=== PATIENT | female | born 2000 | race Caucasian/White ===

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

== ENCOUNTER 2018-03-02 00:58 | Emergency (ER) | payer OTHER ==
[~2018-03-02] VITALS: Ht 167.6 cm; Wt 59.0 kg
--- OUTSIDE RECORDS SUMMARY | ~2018-03-02 | XMS | Encounter Summary ---
Demographics + + + | Address | [address] | | | [place] [address] | + + + | Home Phone | | + + + | Preferred Language | Unknown | + + + | Marital Status | Single | + + + | Baptism Affiliation | 1025 | + + + [...] Mark Chatterjee | ECON | [place] [address] | | | | | Unknown | | + + + + + | Jean Claude Chatterjee | ECON | Unknown | | + + + + + Care Team Providers + +------+ + | Care Camp Recreation Specialist Name | Role | Phone | + +------+ + | Jane Mercado | PCP | | + +------+ + [...] ideation | | 2018 | Visit | [facility] | G, SITE RELIABILITY ENGINEER [address] | (Primary Dx); | | | | MEDICAL [facility] [address] | [place], [place] | Depression, | | | [address] [place], | [address] | unspecified | | | | [place] [address] | [phone] | depression type; | | | | [phone] | | Anxiety | +--------+---------+ + + [...] + | Blood Pressure | 102/58 | 12/05/2017836 PDT | + + + + | Pulse | 83 | 12/05/2017836 PDT | + + + + | Temperature | - | - | + + + + | Respiratory Rate | 16 | 12/05/2017836 PDT | + + + + | Oxygen Saturation | 97% | 12/05/2017836 PDT | + + + + | Inhaled Oxygen | - | - | | Concentration | | | + + + + | Weight | 60.4 kg (133 lb 3.2 | 12/05/2017836 PDT | | | oz) | | + + + + | Height | 166.4 cm (5' 5.5") | 12/05/2017 0837 PDT | + + + + | Body Mass Index | 21.83 | 12/05/2017 0837 PDT | + + + + in this encounter Progress Notes Jane Mercado ARNP - 12/05/2017 0830 PDTFormatting of this note may be different aga m the original. Patient ID: Kristyn Longoria is a 17 y.o. year old female Chief Complaint: Chief Complaint Patient presents with Anxiety Assessment and Plan: 1. Suicidal ideation 2. Depression, unspecified depression type 3. Anxiety Called crisis team from [facility] due to patient expressing intermittent thoughts of suicide. Jun Toussaint LCSW/crisis counselor came to the clinic and met with the patient in my office. Patient has appointment to establish with [facility] in [place], [place] next Friday. I reagan d [facility] and was told patient could make an appointment or walk in to be cami luated for marijuana use/dependence. Patient was notified about this. Subjective: Patient presents today to establish care. Was previously seen at [facility] in [place], [place]. Last seen 11/19/17 for ER follow-up for suicidal ideation and start ed on Vistaril 25 mg tid prn and referred to behavioral health. She reports that she was ref erred to a counselor at [facility] in [place]. She has not been to [facility] yet as she is waiting for her boyfriend to get back in town to go with her. Her boyfriend will be back in town next week. States she has an appointment with [facility] on 12/10/17. 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 She is requesting a referral to psychiatric [...] cutting at age 11. Previously seen at [facility]. 1. Depression and anxiety - states [...] from cutting Psychiatric: Flat affect. KAMILAH Melvin12/05/20179:41 in this encounter Plan of Treatment +--------+ + + + + | Date | Type | Specialty | Care Team | Description | +--------+ + + + + | 08/30/ | Hospital | Obstetrics | Caty Schuster | | | 2018 | Encounter | | DO [address] | | | | | | [address] | | | | | | [place], [place] | | | | | | [address] | | | | | | [phone] | | | | | | | | +--------+ + + + + as of this encounter Visit Diagnoses + + | Diagnosis | + + | Suicidal ideation - Primary | + + | Depression, unspecified depression type | + + | Anxiety | + + | Anxiety state, unspecified | + +
--- OUTSIDE RECORDS SUMMARY | ~2018-03-02 | XMS | Encounter Summary ---
Demographics + + + | Address | [address] | | | [place] [address] | + + + | Home Phone | | + + + | Preferred Language | Unknown | + + + | Marital Status | Single | + + + | Lutheran Affiliation | 1025 | + + + | Race | Unknown | + + + | Ethnic Group | Unknown | + + + Author + + + | Author | [facility] | | | and [place] | + + + | Organization | [facility] | | | and [place] | + + + | Address | Unknown | + + + | Phone | Unavailable | + + + Support + + + + + | Name | Relationship | Address | Phone | + + + + + | Mark Chatterjee | ECON | [place] [address] | | | | | Unknown | | + + + + + | Jean Claude Chatterjee | ECON | Unknown | | + + + + + Care Team Providers + +------+ + | Care Director Of Teacher Education Name | Role | Phone | + [...] | | | DR TIANNA GARCIA, | [facility] [place] | | | | | [place] [address] | [address] | | | | | [phone] | [phone] | | | | | | | [...] water with a slice of lemon or [place]. (These can also help ease an upset [...] salmon, pollock, and catfish Date Last Reviewed: 01/29/201519990715-5983 [employer]. [address] [place] [address]. All righ ts reserved. This information is [...] to increase its absorption. Date Last Reviewed: 01/22/201519996948-4595 [employer]. [address] [place] [address]. All righ ts reserved. This information is [...] had an IOB with a provider in [place]. 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 She has family here that she could stay with. I am ok with seeing her occasionally during the , but we do need to make sure that she does not have duplicate care such as labs. S he states she had some labs done already in [place] and so we will get those results. [...] Anes PTL Lv 2 Current 1 SAB Radiology Specialist history: Menstrual history: Patient's last menstrual [...] negative Breast: negative Gastrointestinal: negative -Urinary: negative -Radiology Specialist: none. Endocrinology: negative Neurologic: negative Musculoskeletal: [...] with positive cardiac activity at 180 bpm. [place]-rump length of 2.57 cm was consistent w [...] age She has been seeing provider in [place] and not sure where she will deliver. I am ok wit h seeing her occasionally, but will need to make sure that information is passed between the two clinics because we do not want to duplicate orders. 2. Normal in multigravida in first trimester 3. 12 weeks gestation of Plan: labs apparently had done in [place]. Will have her sign a ROR for those results . Patient is taking vitamins. Problem list reviewed and updated. Discussed options for genetic testing. Patient was undecided Discussed using Vit B6 25 mg or more four times a day with or without 1/2 a unisom tablet. Follow up in 3 weeks. States she has a follow up in [place] in 2 weeks. If she does, she [...] [place] | | | | | | [address] | | | | | | [phone] | | | | | | | [...]
--- OUTSIDE RECORDS SUMMARY | ~2018-03-02 | XMS | Encounter Summary ---
Demographics + + + | Address | [address] | | | [place] [address] | + + + | Home Phone | | + + + | Preferred Language | Unknown | + + + | Marital Status | Single | + + + | Mormonism Affiliation | 1025 | + + + [...] Mark Chatterjee | ECON | [place] [address] | | | | | Unknown | | + + + + + | Jean Claude Chatterjee | ECON | Unknown | | + + + + + Care Team Providers + +------+ + | Care Bin Packer Name | Role | Phone | + [...] (PT IN | | 2017 | | [facility] | G, QUALITY ASSURANCE MONITOR BODY [address] | [place] NEW | | | | MEDICAL CLIN[facility] [address] | [place], [place] | PCP ) | | | | [address] [place], | [address] | | | | | [place] [address] | [phone] | | | | | [phone] | | | +--------+ + + + [...] [place] | | | | | | [address] | | | | | | [phone] | | | | | | | | +--------+ + + + + as of this encounter Visit Diagnoses Not on filein this encounter"
--- OUTSIDE RECORDS SUMMARY | ~2018-03-02 | XMS | Clinical Summary ---
Demographics + + + | Address | [address] | | | [place] [address] | + + + | Home Phone | | + + + | Preferred Language | Unknown | + + + | Marital Status | Single | + + + | Mu-Ism Affiliation | 1025 | + + + [...] Mark Chatterjee | ECON | [place] [address] | | | | | Unknown | | + + + + + | Jean Claude Chatterjee | ECON | Unknown | | + + + + + Care Team Providers + +------+ + | Care Jewelry Estimator Name | Role | Phone | + [...] ) | +--------+ + + + + | 12/05/ | Office | | Jane Mercado | Suicidal ideation | | 2017 | Visit | | FAY Baig | (Primary Dx); | | | | | | Depression, | | | | | | unspecified | | | | | | depression type; | | | | | | Anxiety | +--------+ + + + + from [...] + | Blood Pressure | 115/63 | 01/27/20181403 PDT | + + + [...] Height | 166.4 cm (5' 5.5") | 01/27/20181403 PDT | + + + + | Body Mass Index | 21.34 | 01/27/20181403 PDT | + + + + Plan of Treatment +--------+ + + + + | Date | Type | Specialty | Care Team | Description | +--------+ + + + + | 03/17/ | Hospital | | Caty Schuster | | | 2019 | Encounter | | DO [address] | | | | | | [address] | | | | | | [place] | | | | | | [address] | | | | | | [phone] | | | | | | | [...] | [employer] | MODA | [id number] | Medica | [phone]- | | | MEDICAID HMO | HEALTH [...] Self | [birth year] | Home: | [address] | | | al/Fam | | 2000 | +- | [address] [place], | | | sary | | | [address] | [place] [address] | + +--------+ +--------+ + + | KRISTYN CAI | Third | Self | [birth year] | Home: | [address] | | | [place] | | 2000 | +- | [address] [place], | | | [place] | | | [address] | [place] [address] | | | ity | | | | | + +--------+ +--------+ + +
--- OUTSIDE RECORDS SUMMARY | ~2018-03-02 | XMS | Encounter Summary ---
Demographics + + + | Address | [address] | | | [place] [address] | + + + | Home Phone | | + + + | Preferred Language | Unknown | + + + | Marital Status | Single | + + + | Hoahaoism Affiliation | 1025 | + + + [...] Mark Chatterjee | ECON | [place] [address] | | | | | Unknown | | + + + + + | Jean Claude Chatterjee | ECON | Unknown | | + + + + + Care Team Providers + +------+ + | Care Seal Mixer Name | Role | Phone | [...] | | DR TIANNA GARCIA, | [facility], [place] | | | | | [place] [address] | [address] | | | | | [phone] | [phone] | | | | | | | [...] water with a slice of lemon or [place]. (These can also help ease an upset [...] are high in mercury, like shark, swordfish, daenne mackerel, tilefish, and alb[place] ore tuna Things to limit Askyour healthcare providerwhether it s safe to eat or drink: Caffeine Artificial sweeteners Organ meats Certain types of fish Fish and shellfish that contain mercury in lower amounts, like shrimp, canned light tuna , salmon, pollock, and catfish Date Last Reviewed: 01/29/201519991986-2859 [employer]. [address] [place] [address]. All righ ts reserved. This information is [...] to increase its absorption. Date Last Reviewed: 01/22/201519993818-3242 [employer]. [address] [place] [address]. All righ ts reserved. This information is [...] had an IOB with a provider in [place]. 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 She has family here that she could stay with. I am ok with seeing her occasionally during the , but we do need to make sure that she does not have duplicate care such as labs. S he states she had some labs done already in [place] and so we will get those results. 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 Endocrinology: negative Neurologic: negative Musculoskeletal: [...] with positive cardiac activity at 180 bpm. 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 I am ok wit h seeing her occasionally, but will need to make sure that information is passed between the two clinics because we do not want to duplicate orders. 2. Normal in multigravida in first trimester 3. 12 weeks gestation of Plan: labs apparently had done in [place]. Will have her sign a ROR for those results . Patient is taking vitamins. Problem list reviewed and updated. Discussed options for genetic testing. Patient was undecided Discussed using Vit B6 25 mg or more four times a day with or without 1/2 a unisom tablet. Follow up in 3 weeks. States she has a follow up in [place] in 2 weeks. If she does, she [...] [place] | | | | | | [address] | | | | | | [phone] | | | | | | | [...]
--- OUTSIDE RECORDS SUMMARY | ~2018-03-02 | XMS | Encounter Summary ---
Demographics + + + | Address | [address] | | | [place] [address] | + + + | Home Phone | | + + + | Preferred Language | Unknown | + + + | Marital Status | Single | + + + | Episcopalian Affiliation | 1025 | + + + | Race | Unknown | + + + | Ethnic Group | Unknown | + + + Author + + + | Author | [facility] | | | and [place] | + + + | Organization | [facility] | | | and [place] | + + + | Address | Unknown | + + + | Phone | Unavailable | + + + Support + + + + + | Name | Relationship | Address | Phone | + + + + + | Mark Chatterjee | ECON | [place] [address] | | | | | Unknown | | + + + + + | Jean Claude Chatterjee | ECON | Unknown | | + + + + + Care Team Providers + +------+ + | Care Solderer Dipper Name | Role | Phone | + [...] (PT IN | | 2017 | | [facility] | G, [place] GENERAL [address] | [place] | | | | MEDICAL CLIN[facility] [address] | [place], [place] | PCP ) | | | | [address] [place], | [address] | | | | | [place] [address] | [phone] | | | | | [phone] | | | +--------+ + + + [...] [place] | | | | | | [address] | | | | | | [phone] | | | | | | | | +--------+ + + + + as of this encounter Visit Diagnoses Not on filein this encounter"
--- OUTSIDE RECORDS SUMMARY | ~2018-03-02 | XMS | Encounter Summary ---
Demographics + + + | Address | [address] | | | [place] [address] | + + + | Home Phone | | + + + | Preferred Language | Unknown | + + + | Marital Status | Single | + + + | Jewish Affiliation | 1025 | + + + [...] Mark Chatterjee | ECON | [place] [address] | | | | | Unknown | | + + + + + | Jean Claude Chatterjee | ECON | Unknown | | + + + + + Care Team Providers + +------+ + | Care Insurance Salesman Name | Role | Phone | + [...] ideation | | 2018 | Visit | [facility] | G, MUTUAL FUNDS AGENT [address] | (Primary Dx); | | | | MEDICAL CLIN[facility] [address] | [place], [place] | Depression, | | | [address] [place], | [address] | unspecified | | | | [place] [address] | [phone] | depression type; | | | | [phone] | | Anxiety | +--------+---------+ + + [...] type 3. Anxiety Called crisis team from [facility] due to patient expressing intermittent thoughts of suicide. Jun Toussaint LCSW/crisis counselor came to the clinic and met with the patient in my office. Patient has appointment to establish with [facility] in [place], [place] next Friday. I reagan d [facility] and was told patient could make an appointment or walk in to be cami luated for marijuana use/dependence. Patient was notified about this. Subjective: Patient presents today to establish care. Was previously seen at [facility] in [place], [place]. Last seen 11/19/17 for ER follow-up for suicidal ideation and start ed on Vistaril 25 mg tid prn and referred to behavioral health. She reports that she was ref erred to a counselor at [facility] in [place], [place]. She has not been to [facility] yet as she is waiting for her boyfriend to get back in town to go with her. Her boyfriend will be back in town next week. States she has an appointment with [facility] on 12/10/17. 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 She is requesting a referral to psychiatric [...] cutting at age 11. Previously seen at [facility]. 1. Depression and anxiety - [...] [place] | | | | | | [address] | | | | | | [phone] | | | | | | | | +--------+ + + + + as of this encounter Visit Diagnoses + + | Diagnosis | + + | Suicidal ideation - Primary | + + | Depression, unspecified depression type | + + | Anxiety | + + | Anxiety state, unspecified | + +
--- OUTSIDE RECORDS SUMMARY | ~2018-03-02 | XMS | Clinical Summary ---
Demographics + + + | Address | [address] | | | [place] [address] | + + + | Home Phone | | + + + | Preferred Language | Unknown | + + + | Marital Status | Single | + + + | Moravian Affiliation | 1025 | + + + | Race | Unknown | + + + | Ethnic Group | Unknown | + + + Author + + + | Author | [facility] | | | and [place] | + + + | Organization | [facility] | | | and [place] | + + + | Address | Unknown | + + + | Phone | Unavailable | + + + Support + + + + + | Name | Relationship | Address | Phone | + + + + + | Mark Chatterjee | ECON | [place] [address] | | | | | Unknown | | + + + + + | Jean Claude Chatterjee | ECON | Unknown | | + + + + + Care Team Providers + +------+ + | Care Superintendent Factory Name | Role | Phone | + [...] [place] | | | | | | [address] | | | | | | [phone] | | | | | | | [...] | [employer] | MODA | [id number] | Medica | [phone]- | | | MEDICAID HMO | HEALTH [...] sary | | | [address] | [place] [address] | + +--------+ +--------+ + + | KRISTYN CAI | Third | Self | [birth year] | Home: | [address] | | | Republican | | 2000 | +- | [address] [place], | | | [place] | | | [address] | [place] [address] | | | ity | | | | | + +--------+ +--------+ + +
--- OUTSIDE RECORDS SUMMARY | 2018-03-02 01:02 | XMS ---
PreManage Notification: BRIGITTE IVY Security Fiscal Manager Events No recent Security Events currently on file CRITERIA MET - 6 ED Visits in 6 Months CARE PROVIDERS RAYMOND RASHEED Nurse Practitioner: 12/29/2017-Current [facility] PHONE: [phone] LAUREN DALE [facility] Current PHONE: HAYDEE TERAN Nurse Practitioner Current PHONE: [phone] HAYDEE TERAN Primary Care Current PHONE: Unknown LAUREN DALE Primary Care 11/19/2017 PHONE: Unknown DOCTOR ROCHA Primary Care Current PHONE: Unknown GAIL ZAIDIRAYA Primary Care [facility] PHONE: [phone] Cornelio has no Care Guidelines for this patient. Care History Medical/Surgical 12/29/2017 [facility] - Patient is currently established with [facility]. If patient is seen in the ED during business hours. Please contact CHWs at [facility] at Ext [phone]. Care Recommendation: This patient has had 5 or more Emergency Department visits in the last 12 months.\T\nbsp; Patient requires education on the scope and purpose of the ED as an acute care provider not a Primary Care Provider and should not be utilized for chronic conditions.\T\nbsp; If patient returns to ED please contact Community Health WorkerCorinna at [phone]. These are guidelines and the provider should exercise clinical judgment when providing care. 12/08/2017 [facility] Care Recommendation: \T\nbsp;Please refer patient to [facility] for non emergent visits and follow care. Patient is established with [facility]. This patient has had 5 or more Emergency Department visits in the last 12 months.\T\nbsp; Patient requires education on the scope and purpose of the ED as an acute care provider not a Primary Care Provider and should not be utilized for chronic conditions.\T\nbsp; If patient returns to ED please contact Community Health WorkerCorinna at [phone]. These are guidelines and the provider should exercise clinical judgment when providing care. E.D. VISIT COUNT (12 MO.) 3 [facility] 1 [facility] 1 [facility] 4 [facility] TOTAL 9 NOTE: Visits indicate total known visits. ED/UCC VISIT TRACKING (12 MO.) 03/02/2018 00:59 [place] [place] TYPE: Emergency COMPLAINT: - HEADACHE 12/31/2017 23:55 [facility] [place] TYPE: Emergency DIAGNOSES: - Threatened - VAGINAL BLEEDING 12/27/2017 17:32 [place] TYPE: Emergency COMPLAINT: - CHEST TIGHTNESS/ABD [id number] DIAGNOSES: - Nicotine dependence, unspecified, uncomplicated - Smoking (tobacco) complicating , first trimester - Other mental disorders complicating , first trimester - Anxiety disorder, unspecified 12/06/2017 16:19 [facility] [place] TYPE: Emergency COMPLAINT: - ANXIETY DIAGNOSES: - Contact with unspecified sharp object, undetermined intent, initial encounter - Personal history of self-harm - Anxiety disorder, unspecified - Laceration without foreign body of left forearm, initial encounter - Panic disorder [episodic paroxysmal anxiety] 11/18/2017 02:[address] [facility] [place] TYPE: Emergency COMPLAINT: - PANIC ATTACK DIAGNOSES: - Panic disorder [episodic paroxysmal anxiety] - Anxiety disorder, unspecified 11/07/2017 00:07 [facility] DIAGNOSES: 0. VOICES IN HEAD 06/10/2017 11:41 [facility] HECTOR Abdalla TYPE: Emergency DIAGNOSES: - Abnormal finding of blood chemistry, unspecified - Abnormal Lab 06/07/2017 21:02 [facility] [place] TYPE: Emergency DIAGNOSES: - Chlamydial infection, unspecified - Hemorrhage in early , unspecified - Vaginal Bleed - related conditions, unspecified, first trimester 06/06/2017 09:46 [facility] HECT[facility] Abdalla TYPE: Emergency DIAGNOSES: - Hemorrhage in early , unspecified - Vaginal Bleeding INPATIENT VISIT TRACKING (12 MO.) No inpatient visits to display in this time frame [id number]
[2018-03-02] MEDS ORDERED: PAIN RELIEF325 MG PO (01:10)
== END 2018-03-02 02:19 | disposition home or self-care (01) ==
LOC: ED 00:58
DX: G43.909 Migraine, unspecified, not intractable, without status migrainosus (principal)
CPT/HCPCS: 96374; 96375; 99283; J1200; J2765; J7030

== ENCOUNTER 2018-03-11 00:53 | Emergency (ER) | payer OTHER ==
[~2018-03-11] VITALS: Ht 167.6 cm; Wt 58.5 kg
--- OUTSIDE RECORDS SUMMARY | ~2018-03-11 | XMS | Clinical Summary ---
Demographics + + + | Address | [address] | | | [place] [address] | + + + | Home Phone | | + + + | Preferred Language | Unknown | + + + | Marital Status | Single | + + + | Advent Affiliation | 1025 | + + + | Race | Unknown | + + + | Ethnic Group | Unknown | + + + Author + + + | Author | [facility] | | | and [place] | + + + | Organization | [facility] | | | and [place] | + + + | Address | Unknown | + + + | Phone | Unavailable | + + + Support + + + + + | Name | Relationship | Address | Phone | + + + + + | Mark Chatterjee | ECON | [place] [address] | | | | | Unknown | | + + + + + | Jean Claude Chatterjee | ECON | Unknown | | + + + + + Care Team Providers + +------+ + | Care Learning And Development Officer Name | Role | Phone | + +------+ + | Leroy Dougherty NP | PP | | + +------+ + Allergies No Known Allergies Current Medications + + +-------+---------+------+------+-------+ | Prescription | Sig. | Disp. | Refills | Star | End | Statu | | | | | | t | Date | s | | | | | | Date | | | + + +-------+---------+------+------+-------+ | | Take 2 tablets by | | | | | Activ | | multivitamin-fish | mouth Daily. | | | | | e | | oil ([facility] ) | | | | | | | | 0.4-113.5 mg | | | | | | | | chewable gummy | | | | | | | + + +-------+---------+------+------+-------+ Active Problems + + + | Problem | Noted Date | + + + | , unspecified gestational age | 01/27/2018 | + + + | Anxiety | 03/24/2017 | + + + + + + + | Currently | Estimated Date of Delivery | Comments | + + + + | Yes | 08/30/2018 | Based on last | | | | menstrual period of | | | | 11/23/2017 (Exact | | | | Date) | + + + + Encounters +--------+ + + + + | Date | Type | Specialty | Care Team | Description | +--------+ + + + + | 01/27/ | Initial | | Caty Schuster | GA: 9w2d | | 2018 | | | DO Evelyn | | +--------+ + + + + | 01/12/ | Telephone | | Jane Mercado | Imaging Only (PT IN | | 2017 | | | FAY Baig | [place] WITH NEW | | | | | | PCP ) | +--------+ + + + + from Last 3 Months Immunizations + + + + | Name | Dates Previously Given | Next Due | + + + + | DTAP, 5 | 07/27/2003, 02/11/2001, 01/09/1999, | | | [...] + + + + | Hep B (adolescent or | 01/09/1999, 1998, 1998 | | | ped) 3 dose | | | + + + + [...] | | + + + + | POLIOVIRUS,OPV, LIVE | 01/09/1999 | | + + + + | TDAP, (ADOL/ADULT) | 08/08/2009 | | + + + + | VARICELLA, 2 DOSE | 07/03/2007, 02/12/2001 | | | (PED/ADOL/ADULT) | | | [...] + +---------+ + | Alcohol Use | Drinks/We | oz/Week | Comments | | | ek | | | + + +---------+ + | No | | | | + + +---------+ + + + + + | Currently | Estimated Date of Delivery | Comments | + + + + | Yes | 08/30/2018 | Based on last | | | | menstrual period of | | | | 11/23/2017 (Exact | | | | Date) | + + + + + + + | Sex Assigned at | Date Recorded | | | | + + + | Not on file | | + + + Last Filed Vital Signs + + + + | Vital Sign | Reading | Time Taken | + + + + | Blood Pressure | 115/63 | 01/27/2018 1404 PDT | + + + + | Pulse | 108 | 01/27/20181403 PDT | + + + + | Temperature | - | - | + + + + | Respiratory Rate | 16 | 01/27/20181403 PDT | + + + + | Oxygen Saturation | 97% | 12/05/2017836 PDT | + + + + | Inhaled Oxygen | - | - | | Concentration | | | + + + + | Weight | 59.1 kg (130 lb 3.2 | 01/27/20181403 PDT | | | oz) | | + + + + | Height | 166.4 cm (5' 5.5") | 01/27/2018 1404 PDT | + + + + | Body Mass Index | 21.34 | 01/27/2018 1404 PDT | + + + + Plan of Treatment +--------+ + + + + | Date | Type | Specialty | Care Team | Description | +--------+ + + + + | 08/30/ | Hospital | | Caty Schuster | | | 2019 | Encounter | | DO Austin Rivas | | | | | | [address] | | | | | | [place] | | | | | | [address] | | | | | | [phone] | | | | | | | | +--------+ + + + + + + + + + | Health Maintenance | Due Date | Last Done | Comments | + + + + + | PRIMARY CARE | | | | | OUTREACH-MODERATE | 9 | | | | RISK EVERY 1 YEAR | | | | + + + + + | Well Child Check | | | | | | 2 | | | + + + + + | Vaccine: Influenza | | | | | (#1) | 8 | | | + + + + + | Vaccine: | | 08/08/2009, 07/27/2003, | | | Dtap/Tdap/Td (7 - | 0 | 07/27/2003, Additional history | | | Td) | | exists | | + + + + + Procedures + +--------+ + + + | Procedure Name | Priori | Date/Time | Associated Diagnosis | Comments | | | ty | | | | + +--------+ + + + | DIAGNOSTIC REPORT - | | 01/29/2018 | | Results for this | | EXTERNAL SCAN | | 0000 PDT | | procedure are in the | | | | | | results section. | + +--------+ + + + from Last 3 Months Results DIAGNOSTIC REPORT - EXTERNAL SCAN (01/29/2018) + + + | Narrative | Performed At | + + + | Ordered by an | | | unspecified provider. | | + + + from Last 3 Months Insurance + +--------+ +--------+ +---------+ | Payer | Benefi | Subscriber | Type | Phone | Address | | | t Plan | ID | | | | | | / | | | | | | | Group | | | | | + +--------+ +--------+ +---------+ | [employer] | MODA | [id number] | Medica | [phone] | | MEDICAID HMO | HEALTH | | id | 9821 | | | | [place] | | | | | | | [place]MO [place] | | | | | + +--------+ +--------+ +---------+ + +--------+ +--------+ + + | Guarantor Name | Accoun | Relation to | Date | Phone | Billing Address | | | t Type | Patient | of | | | | | | | | | | + +--------+ +--------+ + + | KRISTYN CAI | Person | Self | [birth year] | Home: | [address] | | | al/Fam | | 2000 | [phone] | [address] [place], | | | sary | | | [address] | [place] [address] | + +--------+ +--------+ + + | KRISTYN CAI | Third | Self | [birth year] | Home: | [address] | | | Libert[address] | | 2000 | [phone] | [address] [place], | | | [place] | | | [phone] | [place] [address] | | | ity | | | | | + +--------+ +--------+ + +
--- OUTSIDE RECORDS SUMMARY | ~2018-03-11 | XMS | Encounter Summary ---
Demographics + + + | Address | [address] | | | [place] [address] | + + + | Home Phone | | + + + | Preferred Language | Unknown | + + + | Marital Status | Single | + + + | Orthodoxy Affiliation | 1025 | + + + | Race | Unknown | + + + | Ethnic Group | Unknown | + + + Author + + + | Author | [facility] | | | and [place] | + + + | Organization | [facility] | | | and [place] | + + + | Address | Unknown | + + + | Phone | Unavailable | + + + Support + + + + + | Name | Relationship | Address | Phone | + + + + + | Mark Chatterjee | ECON | [place] [address] | | | | | Unknown | | + + + + + | Jean Claude Chatterjee | ECON | Unknown | | + + + + + Care Team Providers + +------+ + | Care Gumming Machine Operator Name | Role | Phone | + +------+ + | Leroy Dougherty NP | PCP | | + +------+ + Reason for Visit + + + | Reason | Comments | + + + | Initial | | | Visit | | + + + Encounter Details +--------+ + + + + | Date | Type | Department | Care Team | Description | +--------+ + + + + | 01/27/ | Initial | [facility] | Caty Schuster | GA: 9w2d | | 2018 | | [facility] | DO [address]elyn [address] | | | | | [address] | [address] | | | | | [address], | [facility] [place] | | | | | [place] [address] | [address] | | | | | [phone] | [phone] | | | | | | | [...] on file | | + + + as of this encounter Last Filed Vital Signs + + + + | Vital Sign | Reading | Time Taken | + + + + | Blood Pressure | 115/63 | 01/27/2018 1404 PDT | + + + + | Pulse | 108 | 01/27/2018 1404 PDT | + + + + | Temperature | - | - | + + + + | Respiratory Rate | 16 | 01/27/2018 1404 PDT | + + + + | Oxygen Saturation | - | - | + + + + | Inhaled Oxygen | - | - | | Concentration | | | + + + + | Weight | 59.1 kg (130 lb 3.2 | 01/27/2018 1404 PDT | | | oz) | | + + + + | Height | 166.4 cm (5' 5.5") | 01/27/2018 1404 PDT | + + + + | Body Mass Index | 21.34 | 01/27/2018 1404 PDT | + + + + in this encounter Instructions Patient Instructions - Caitlin Santana LPN - 01/27/2018 1421 PDTFormatting of this note may be different from the original. Healthy Eating Habits During It s important to develop healthy eating habits while you are , for you as well a s for your baby.Here are some ways to stay healthy. Aim for a healthy weight A slow, steady rate of weight gain is often best. After the first trimester, you may gain a bout a pound a week. If you were overweight before , you need to gain fewer pounds. Your healthcare provider can give you a healthy weight goal for your . Don t diet Now is not the time to diet. You may not get enough of the nutrients you and your baby need . Instead, learn how to be a healthy eater. Start by doing it for your baby. Soon, you may d o it for yourself. Vitamins and supplements Talk with your healthcare provider about taking these and other vitamins and suppl ements. Iron makes the extra blood you need now. Calcium and vitamin D help build and keep strong bones. Folic acid helps prevent certain defects. Some vitamins may not be safe to take. Your healthcare provider will tell you which ones to avoid. Fluids Drink at least 8 to 10 cups of fluid daily. Your baby needs fluids. Fluids also decrease co nstipation, flush out toxins and waste, limit swelling, and help prevent bladder infections. Water is best.Other good choices are: Water or seltzer water with a slice of lemon or [place]. (These can also help ease an upset stomach.) Clear soups that are low in salt Low-fat or fat-free milk; soy or rice milk with calcium added 100% fruit juices mixed with water Popsicles or gelatin Things to avoid Some things might harm your growing baby. Don t eat or drink: Alcohol Unpasteurized dairy foods and juices Raw or undercooked meat, poultry, fish, or eggs Prepared meats, like deli meats or hot dogs, unless heated until steaming hot Fish that are high in mercury, like shark, swordfish, deanne mackerel, tilefish, and albac ore tuna Things to limit Askyour healthcare providerwhether it s safe to eat or drink: Caffeine Artificial sweeteners Organ meats Certain types of fish Fish and shellfish that contain mercury in lower amounts, like shrimp, canned light tuna , salmon, pollock, and catfish Date Last Reviewed: 01/29/201519999391-3370 [employer] [address] [place] [address]. All righ ts reserved. This information is not intended as a substitute for professional medical care. Always follow your healthcare professional's instructions. Nutrition During Having a healthy baby depends mostly on you. What you eat matters to your baby and your hea lth. During , you will likely need about 300 more calories per day thanbefore you became . Each day, try to eat the number of servings listed here for each food grou p. In addition, cut down on salt and caffeine. Limit the amount of sweets and high-fat foods you eat.Don t smoke or drink alcohol. Important: See your healthcare provider as often as requested. If you have any questions, b e sure to ask them. Fruits 2 cups Examples of 1-cupservings: 1 medium apple 1 medium orange 1 medium banana 1cup chopped fruit 1 cup 100% fruit juice (pasteurized) 1/2 cup dried fruit Vegetables 2-1/2 to 3 cups Examples of 1 servincups raw,leafy greens 1cup raw or cooked cut-up vegetables 1cup 100% vegetable juice (pasteurized) Grains & Cereals* 6 to 8 ounces Examples of 1-ounce servings: 1 slice bread 1/2 cup cooked rice 1/2 cup cooked cereal 1/2 cup pasta 1ounce cold cereal Fats & Oils 6 to 8 teaspoons Dairy 3 cups Examples of 1-cup servings: 1 cup milk 1 cup yogurt 1-1/2 ounces natural cheese 2 ounces processed cheese Protein--- 5 to6-1/2 ounces Examples of 1-ounce servings: 1 egg 1ounce of lean meat, poultry, or fish 1/4 cup cookedbeans 1tablespoon peanut butter 1/2 ounce nuts Fluids 8 or more 8-ounce glasses Examples: Water Diluted juices: Apple, orange, cranberry Mineral water Clear soups, broth *Note: Choose whole grains whenever possible. Note:Try to choose low-fat options; avoid soft cheeses and unpasteurized milk. --- Notes:Avoid raw or undercooked meats, eggs, and seafood. fish, and shellfish.Also, some types of fish, like shark, swordfish, and deanne mackerel should not be eaten during preg bria.Avoid hot dogs, luncheon meats, and cold cuts unless heated to steaming just prior t o being served.Ask your healthcare provider about safe choices. supplements A supplement is a pill that you take daily during . It helps make sure yo u re getting the right amount of certain nutrients that are important to your baby. Ask yo ur healthcare provider to help you choose the best one for you. Important nutrients during p regnancy include: Folic acid.It's best to start taking this supplement 1 month before you start trying t o get . Folic acid helps prevent certain problems in your baby. During , yo u need to take 400 micrograms (mcg) of folic acid every day for the first 2 to 3 months afte r conception, and then 600 mcg is needed for growing fetus and placenta. Iron, calcium, and vitamin D.You may also be advised to take these supplements during . They help keep you and your baby healthy. Be sure to take them at different times because calcium makes it hard for the body to absorb iron. Taking iron with orange juice he lps to increase its absorption. Date Last Reviewed: 01/22/201519999589-9929 [employer] [address] [place] [address]. All righ ts reserved. This information is not intended as a substitute for professional medical care. Always follow your healthcare professional's instructions. in this encounter Progress Notes Caty Schuster, DO - 01/27/2018 1400 PDTFormatting of this note may be different f rom the original. Subjective: Kristyn Longoria is being seen today for her first obstetrical visit. This is a plann ed . FOB is involved. She has actually had an IOB with a provider in [place]. 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 She has family here that she could stay with. I am ok with seeing her occasionally during the , but we do need to make sure that she does not have duplicate care such as labs. S he states she had some labs done already in [place] and so we will get those results. She is not having any bleeding. She has a little nausea but better than before. No Known Allergies Current Outpatient Prescriptions: multivitamin-fish oil ([facility] ) 0.4-113.5 mg chewable gummy, Take 2 tabl ets by mouth Daily., Disp: , Rfl: has no past medical history on file. has a past surgical history that includes tailbone . family history includes Cancer in her maternal grandfather; Stroke in her paternal grandmot her. OB History Para Term AB Living 2 0 1 0 SAB TAB Ectopic Molar Multiple Live Births 1 0 # Outcome Date GA Lbr William/2nd Weight Sex Delivery Anes PTL Lv 2 Current 1 SAB Foundation Relations Director history: Menstrual history: Patient's last menstrual period was 11/23/2017 (exact date). STD history: h/o chlamydia but states it was retested at her last visit and it was ok. Sexual history: Patient is sexuall active with Male. She has single partner/s. STD risk: very low risk of STD exposure. Testing desired: routine PN labs Social History Substance Use Topics Smoking status: Former Smoker Packs/day: 0.10 Quit date: 10/14/2017 Smokeless tobacco: Never Used Alcohol use No ROS: General: negative Cardiovascular: no chest pain or dyspnea on exertion Respiratory: negative Breast: negative Gastrointestinal: negative -Urinary: negative -Foundation Relations Director: none. Endocrinology: negative Neurologic: negative Musculoskeletal: negative Psychiatric: negative PE : Vitals: 01/27/18 1404 BP: 115/63 Pulse: 108 Resp: 16 PainSc: 0 - No pain General: thin female. She appears in no apparent distress Psych: oriented to time, place and person. Patient with normal affect. Heart: S1, S2 normal, no murmur, rub or gallop, regular rate and rhythm Lungs: clear to auscultation bilaterally Abdomen: soft, nontender, nondistended, no abnormal masses, no epigastric pain and FHT pres ent Musculoskeletal: extremities normal, atraumatic, no cyanosis or edema Neurologic: Alert and oriented x3. Gait normal. Reflexes and motor strength normal and symm etric. Cranial nerves 2-12 and sensation grossly intact. Skin: normal skin but does have scars on her arm from cutting Breast: not performed Pelvic: not performed OB US :A transabdominal ultrasound was performed. This showed single intrauterine pregnanc y with positive cardiac activity at 180 bpm. [place]-rump length of 2.57 cm was consistent w ith the patient's dates. EGA by US was 9 2/7 weeks. EDC by US today is 08/29/18 . Limited examination of anatomy was normal. Estimated date of confinement was set as Estimated Date of Delivery: 3/17/19 by LMP correlated with ultrasound . Assessment: at9w2d with Estimated Date of Delivery: 08/30/18 1. , unspecified gestational age She has been seeing provider in [place] and not sure where she will deliver. I am ok wit h seeing her occasionally, but will need to make sure that information is passed between the two clinics because we do not want to duplicate orders. 2. Normal in multigravida in first trimester 3. 12 weeks gestation of Plan: labs apparently had done in [place]. Will have her sign a ROR for those results . Patient is taking vitamins. Problem list reviewed and updated. Discussed options for genetic testing. Patient was undecided Discussed using Vit B6 25 mg or more four times a day with or without 1/2 a unisom tablet. Follow up in 3 weeks. States she has a follow up in [place] in 2 weeks. If she does, she does not need to be seen here. Caty Schuster DO 01/27/18 in this encounter Plan of Treatment +--------+ + + + + | Date | Type | Specialty | Care Team | Description | +--------+ + + + + | 08/30/ | Hospital | Obstetrics | Caty Schuster | | | 2018 | Encounter | | DO [address]elyn [address] | | | | | | [address] | | | | | | [place], [place] | | | | | | [address] | | | | | | [phone] | | | | | | | | +--------+ + + + + as of this encounter Procedures + +--------+ [...] section. | + +--------+ + + + in this encounter Results DIAGNOSTIC REPORT - EXTERNAL SCAN (01/29/2018) + + + | Narrative | Performed At | + + + | Ordered by an | | | unspecified provider. | | + + + in this encounter Visit Diagnoses + + | Diagnosis | + + | Normal in multigravida in first trimester - Primary | + + | , unspecified gestational age | + + | 12 weeks gestation of | + + | state, incidental | + +
--- OUTSIDE RECORDS SUMMARY | ~2018-03-11 | XMS | Encounter Summary ---
Demographics + + + | Address | [address] | | | [place] [address] | + + + | Home Phone | | + + + | Preferred Language | Unknown | + + + | Marital Status | Single | + + + | Shinto Affiliation | 1025 | + + + | Race | Unknown | + + + | Ethnic Group | Unknown | + + + Author + + + | Author | [facility] | | | and [place] | + + + | Organization | [facility] | | | and [place] | + + + | Address | Unknown | + + + | Phone | Unavailable | + + + Support + + + + + | Name | Relationship | Address | Phone | + + + + + | Mark Chatterjee | ECON | [place] [address] | | | | | Unknown | | + + + + + | Jean Claude Chatterjee | ECON | Unknown | | + + + + + Care Team Providers + +------+ + | Care Causticiser Name | Role | Phone | + +------+ + PCP | Unavailable | + +------+ + Reason for Visit + + + | Reason | Comments | + + + | Imaging Only | PT IN [place] WITH NEW PCP | + + + Encounter Details +--------+ + + + + | Date | Type | Department | Care Team | Description | +--------+ + + + + | 01/12/ | Telephone | [facility] | Jane Mercado | Imaging Only (PT [place] | | 2017 | | [facility] | G, SKIN FITTER [address] | [place] NEW | | | | [facility] | [place], [place] | PCP ) | | | [address] [place], | [address] | | | | | [place] [address] | [phone] | | | | | [phone] | | | +--------+ + + + [...] + + + as of this encounter Plan of Treatment +--------+ + + + + | Date | Type | Specialty | Care Team | Description | +--------+ + + + + | 08/30/ | Hospital | Obstetrics | Caty Schuster | | | 2018 | Encounter | | DO Austin Rivas | | | | | | [address] | | | | | | [place] | | | | | | [address] | | | | | | [phone] | | | | | | | | +--------+ + + + + as of this encounter Visit Diagnoses Not on filein this encounter"
--- OUTSIDE RECORDS SUMMARY | ~2018-03-11 | XMS | Encounter Summary ---
Demographics + + + | Address | [address] | | | [place] [address] | + + + | Home Phone | | + + + | Preferred Language | Unknown | + + + | Marital Status | Single | + + + | Church Affiliation | 1025 | + + + | Race | Unknown | + + + | Ethnic Group | Unknown | + + + Author + + + | Author | [facility] | | | and [place] | + + + | Organization | [facility] | | | and [place] | + + + | Address | Unknown | + + + | Phone | Unavailable | + + + Support + + + + + | Name | Relationship | Address | Phone | + + + + + | Mark Chatterjee | ECON | [place] [address] | | | | | Unknown | | + + + + + | Jean Claude Chatterjee | ECON | Unknown | | + + + + + Care Team Providers + +------+ + | Care Drawstring Knotter Name | Role | Phone | + [...] | | | DR TIANNA GARCIA, | [facility], [place] | | | | | [place] [address] | [address] | | | | | [phone] | [phone] | | | | | | | [...] water with a slice of lemon or oglala sioux. (These can also help ease an upset [...] salmon, pollock, and catfish Date Last Reviewed: 01/29/201519999528-6994 [employer]. [address] [place] [address]. All righ ts reserved. This information is [...] to increase its absorption. Date Last Reviewed: 01/22/201519990304-7576 [employer]. [address] [place] [address]. All righ ts reserved. This information is [...] had an IOB with a provider in [place]. 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 She has family here that she could stay with. I am ok with seeing her occasionally during the , but we do need to make sure that she does not have duplicate care such as labs. S he states she had some labs done already in [place] and so we will get those results. 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 Endocrinology: negative Neurologic: negative Musculoskeletal: negative [...] with positive cardiac activity at 180 bpm. [place]-rump length of 2.57 cm was consistent w [...] age She has been seeing provider in [place] and not sure where she will deliver. I am ok wit h seeing her occasionally, but will need to make sure that information is passed between the two clinics because we do not want to duplicate orders. 2. Normal in multigravida in first trimester 3. 12 weeks gestation of Plan: labs apparently had done in [place]. Will have her sign a ROR for those results . Patient is taking vitamins. Problem list reviewed and updated. Discussed options for genetic testing. Patient was undecided Discussed using Vit B6 25 mg or more four times a day with or without 1/2 a unisom tablet. Follow up in 3 weeks. States she has a follow up in [place] in 2 weeks. If she does, she [...] [place] | | | | | | [address] | | | | | | [phone] | | | | | | | [...]
--- OUTSIDE RECORDS SUMMARY | ~2018-03-11 | XMS | Clinical Summary ---
Demographics + + + | Address | [address] | | | [place] [address] | + + + | Home Phone | | + + + | Preferred Language | Unknown | + + + | Marital Status | Single | + + + | Alevism Affiliation | 1025 | + + + | Race | Unknown | + + + | Ethnic Group | Unknown | + + + Author + + + | Author | [facility] | | | and [place] | + + + | Organization | [facility] | | | and [place] | + + + | Address | Unknown | + + + | Phone | Unavailable | + + + Support + + + + + | Name | Relationship | Address | Phone | + + + + + | Mark Chatterjee | ECON | [place] [address] | | | | | Unknown | | + + + + + | Jean Claude Chatterjee | ECON | Unknown | | + + + + + Care Team Providers + +------+ + | Care Casing Soaker Name | Role | Phone | + [...] [place] | | | | | | [address] | | | | | | [phone] | | | | | | | [...] | [employer] | MODA | [id number] | Medica | [phone] | | [...] | | | sary | | | [phone] | [place] [address] | + +--------+ +--------+ + + | KRISTYN CAI | Third | Self | [birth year] | Home: | [address] | | [employer] | | 2000 | [phone] [address] [place], | | | [place] | | | [address] | [place] [address] | | | ity | | | | | + +--------+ +--------+ + +
--- OUTSIDE RECORDS SUMMARY | ~2018-03-11 | XMS | Encounter Summary ---
Demographics + + + | Address | [address] | | | [place] [address] | + + + | Home Phone | | + + + | Preferred Language | Unknown | + + + | Marital Status | Single | + + + | Anglican Affiliation | 1025 | + + + | Race | Unknown | + + + | Ethnic Group | Unknown | + + + Author + + + | Author | [facility] | | | and [place] | + + + | Organization | [facility] | | | and [place] | + + + | Address | Unknown | + + + | Phone | Unavailable | + + + Support + + + + + | Name | Relationship | Address | Phone | + + + + + | Mark Chatterjee | ECON | [place] [address] | | | | | Unknown | | + + + + + | Jean Claude Chatterjee | ECON | Unknown | | + + + + + Care Team Providers + +------+ + | Care Plant And Equipment Worker Name | Role | Phone | + [...] (PT [place] | | 2017 | | [facility] | G, RECHARGER [address] | [place] NEW | | | | MEDICAL [facility] [address] | [place], [place] | PCP ) | | | | [address] [place], | [address] | | | | | [place] [address] | [phone] | | | | | [phone] | | | +--------+ + + + [...] [place] | | | | | | [address] | | | | | | [phone] | | | | | | | | +--------+ + + + + as of this encounter Visit Diagnoses Not on filein this encounter"
[~2018-03-11 00:53] MED LIST changes: +PAIN RELIEF325 MG PO
--- OUTSIDE RECORDS SUMMARY | 2018-03-11 00:58 | XMS ---
PreManage Notification: BRIGITTE IVY Security Podiatry Doctor Events No recent Security Events currently on file CRITERIA MET - 6 ED Visits in 6 Months - [facility] - 2 Visits in 30 Days CARE PROVIDERS RAYMOND RASHEED Nurse Practitioner: 12/29/2017-Current ZENOBIA PHONE: [phone] LAUREN DALE [facility] Current PHONE: HAYDEE TERAN Nurse Practitioner Current PHONE: [phone] PCP_Unattributed Primary Care Current PHONE: Unknown PCP_Unattributed Primary Care 11/19/2017 PHONE: Unknown DOCTOR ROCHA Primary Care Current PHONE: Unknown SONIDO [facility] PHONE: Unknown GAIL HO Primary Care Replaced by [facility] PHONE: [phone] Cornelio has no Care Guidelines for this patient. Care History Medical/Surgical 12/29/2017 [facility] - Patient is currently established with [facility]. If patient is seen in the ED during business hours. Please contact CHWs at [facility] at [phone]. Care Recommendation: This patient has had 5 or more Emergency Department visits in the last 12 months.\T\nbsp; Patient requires education on the scope and purpose of the ED as an acute care provider not a Primary Care Provider and should not be utilized for chronic conditions.\T\nbsp; If patient returns to ED please contact [facility] Corinna Armendariz at [phone]. These are guidelines and the provider should exercise clinical judgment when providing care. 12/08/2017 [facility] Care Recommendation: \T\nbsp;Please refer patient to [facility] for non emergent visits and follow care. Patient is established with [facility]. This patient has had 5 or more Emergency Department visits in the last 12 months.\T\nbsp; Patient requires education on the scope and purpose of the ED as an acute care provider not a Primary Care Provider and should not be utilized for chronic conditions.\T\nbsp; If patient returns to ED please contact [facility] WorkerCorinna at [phone]. These are guidelines and the provider should exercise clinical judgment when providing care. E.D. VISIT COUNT (12 MO.) 3 [facility] Oleg Lore 1 [facility] [address] TOTAL 10 NOTE: Visits indicate total known visits. ED/UCC VISIT TRACKING (12 MO.) 03/11/2018 00:53 [place] TYPE: Emergency COMPLAINT: - SMOKE INHALATION 03/02/2018 00:59 [place] TYPE: Emergency COMPLAINT: - HEADACHE DIAGNOSES: - Migraine, unspecified, not intractable, without status migrainosus 12/31/2017 23:55 [facility] TYPE: Emergency DIAGNOSES: - Threatened - VAGINAL BLEEDING 12/27/2017 17:32 [place] [facility] [place] TYPE: Emergency COMPLAINT: - CHEST TIGHTNESS/ABD [id number] DIAGNOSES: - Nicotine dependence, unspecified, uncomplicated - Smoking (tobacco) complicating , first trimester - Other mental disorders complicating , first trimester - Anxiety disorder, unspecified 12/06/2017 16:19 LINDSEY [facility] [facility]Chloe [place] TYPE: Emergency COMPLAINT: - ANXIETY DIAGNOSES: - Contact with unspecified sharp object, undetermined intent, initial encounter - Personal history of self-harm - Anxiety disorder, unspecified - Laceration without foreign body of left forearm, initial encounter - Panic disorder [episodic paroxysmal anxiety] 11/18/2017 02:45 [place] TYPE: Emergency COMPLAINT: - PANIC ATTACK DIAGNOSES: - Panic disorder [episodic paroxysmal anxiety] - Anxiety disorder, unspecified 11/07/2017 00:07 [facility] DIAGNOSES: 0. VOICES IN HEAD 06/10/2017 11:41 [facility] [place] TYPE: Emergency DIAGNOSES: - Abnormal finding of blood chemistry, unspecified - Abnormal Lab 06/07/2017 21:02 [facility] [place] TYPE: Emergency DIAGNOSES: - Chlamydial infection, unspecified - Hemorrhage in early , unspecified - Vaginal Bleed - related conditions, unspecified, first trimester 06/06/2017 09:46 [facility] [place] TYPE: Emergency DIAGNOSES: - Hemorrhage in early , unspecified - Vaginal Bleeding INPATIENT VISIT TRACKING (12 MO.) No inpatient visits to display in this time frame [id number]
[2018-03-11] MEDS ORDERED: FIORINAL 50-321 EACH PO (01:03)
[2018-03-11] MEDS ORDERED: PRENATAL 19 TA1 EAC1 PO (01:04)
== END 2018-03-11 01:43 | disposition short-term general hospital (02) ==
LOC: ED 00:53
DX: Z34.92 Encounter for supervision of normal pregnancy, unspecified, second trimester (principal); Z79.899 Other long term (current) drug therapy; Z3A.15 15 weeks gestation of pregnancy
CPT/HCPCS: 99284

== ENCOUNTER 2018-08-02 20:56 | Observation (INO) | payer OTHER ==
[~2018-08-02 20:56] MED LIST changes: +FIORINAL 50-321 EACH PO; +PRENATAL 19 TA1 EAC1 PO
--- NOTE | 2018-08-03 08:10 | PR ---
[facility] [address] [place] [address] Signed AP Progress Notes Datetime Report Generated by CPN: 08/03/2018 08:10 Chief Complaint: Contractions PHYSICAL EXAM: [id number] General: Normal Abdomen: Normal Geniturinry Exam: Normal Physical Exam Comments: Minimal change overnight, head not well applied to cervix; doubt labor VITAL SIGNS: [id number] Vital Signs: Reviewed; Within Normal Limits EXAM: [id number] Dilatation: 2.0 Effacement: 25 Station: -3 Contraction Comments: rare MEMBRANES: [id number] Membranes: Intact Fetus A: [id number] FHR Baseline: 135 Variability: Moderate 6-25bpm Accelerations: 15X15 Presentation: Vertex Fetus B: [id number] PROGRESS NOTES: [id number] Impression: False Labor Plan: Received SQ Terbutaling and PO Procardia last night, not feleling any contractions at this time. Home, return if contractions return (Planning on delivering in [facility]) Signing Physician: Ramona Olsen MD Copies: ~ *Electronically Signed* 08/03/18 0810 RAMONA OLSEN MD PATIENT NAME: BRIGITTE IVY PROGRESS NOTE DATE OF : 98 PHYSICIAN: RAMONA OLSEN MD RPT #: [id number] REPORT IS CONFIDENTIAL AND NOT TO BE RELEASED WITHOUT AUTHORIZATION
== END 2018-08-03 08:30 | disposition home or self-care (01) ==
LOC: FBCO 20:56 → FBC 20:57
PROVIDERS: ADMIT General Practice
DX: O47.03 False labor before 37 completed weeks of gestation, third trimester (principal); Z3A.36 36 weeks gestation of pregnancy
CPT/HCPCS: 59025; 81001; 87088; 99213; G0378; J3105; J7120

== ENCOUNTER 2019-04-11 16:55 | Emergency (ER) | payer OTHER ==
[~2019-04-11] VITALS: Ht 167.6 cm; Wt 58.5 kg
--- OUTSIDE RECORDS SUMMARY | ~2019-04-11 | XMS | Encounter Summary ---
Demographics + + + | Address | [address] | | | [place] [address] | + + + | Home Phone | | + + + | Preferred Language | Unknown | + + + | Marital Status | Single | + + + | Taoist Affiliation | 1013 | + + + | Race | Unknown | + + + | Ethnic Group | Unknown | + + + Author + + + | Author | [facility] | | | and [place] | + + + | Organization | [facility] | | | and [place] | + + + | Address | Unknown | + + + | Phone | Unavailable | + + + Support + + + + + | Name | Relationship | Address | Phone | + + + + + | Mark Chatterjee | ECON | [place] [address] | | | | | Unknown | | + + + + + | Jean Claude Chatterjee | ECON | Unknown | | + + + + + Care Team Providers + +------+ + | Care Nutrition Teacher Name | Role | Phone | + [...] | DR GARCIA, [place] | [place] [address] | | | | | [address] | [phone] | | | | | [phone] | | | +--------+ + + + [...] | | + + +---------+ + | Yes [...] + | Blood Pressure | 117/57 | 03/26/20191807 PDT | + + + + | Pulse | 65 | 03/26/20191806 PDT | + + + + | Temperature | 36.5 C (97.7 F) | 03/26/20191607 PDT | + + + + | Respiratory Rate | 16 | 03/26/20191607 PDT | + + + + | Oxygen Saturation | 96% | 03/26/20191806 PDT | + + + + | Inhaled Oxygen | - | - | | Concentration | | | + + + + | Weight | 54.4 kg (120 lb) | 03/26/20191607 PDT | + + + + | Height | 165.1 cm (5' 5") | 03/26/20191607 PDT | + + + + | Body Mass Index | 19.97 | 03/26/20191607 PDT | + + + + documented in this encounter Discharge Instructions Luisito Shetty, - 03/26/2019Follow up with your primary provider. AttachmentsThe following attachments cannot be sent through Care Everywhere.Lymphadenopathy (Ecuadorean)documented in this encounter Plan of Treatment + +--------+ + + | Name | Priori | Associated Diagnoses | Date/Time | | | ty | | | + +--------+ + + | ED INFORMATION EXCHANGE | Routin | | 03/26/2019 16:00 PDT | | | e | | | + +--------+ + + documented as of this encounter Procedures + +--------+ + + + | Procedure Name | Priori | Date/Time | Associated Diagnosis | Comments | | | ty | | | | + +--------+ + + + | US SNELL BILATERAL | STAT | 03/26/2019 | | Results for this | | | | 16:53 PDT | | procedure are in the | | | | | | results section. | + +--------+ + + + | ED INFORMATION | Routin | 03/26/2019 | | | | EXCHANGE | e | 16:00 PDT | | | + +--------+ + + + +---+--------+ | | | | | Proced | | | ure | | | Note - | | | Dave, | | | Lab In | | | | | | Hlseve | | | n - | | | 03/26/ | | | 2019 | | | 1601 | | | PDT | | | Format | | | [...] | | | FICATI | | | ON?/ | | | | | | 9 | | | 15:59? | | | DECKER | | | DWIGHT | | | , | | | KRISTYN | | | S?MRN: | | | | | | [id number] | | | [id number] | | | riteri | | | [...] | | | St. | | | [place] | | | y | | | [...] | | | St. | | | [place] | | | y | | | Hospit | | | al | | | Patien | | | t is | | | curren | | | tly | | | establ | | | ished | | | with | | | St | | | [place] | | | y | | | [...] St | | | | | | [place] | | | y | | | [...] | | | [phone] | | | .These | | | [...] | | | St. | | | [place] | | | y | | | [...] | | | St. | | | [place] | | | y H. | | [...] | | LEROY | | | R, CAUSTIC STRENGTH INSPECTOR | | | Nurse | | | [...] +---+--------+ documented in this encounter Results US Gutierrez Causey (03/26/2019 16:53 PDT) + + | Specimen | + [...] right inguinal region demonstrates no evidence of | | | hernia. No pathologically enlarged lymph nodes. Several lymph | | | nodes are noted with fatty hilum and mild hyperemia. These nodes | | | measure 0.9 x 1.0 x 0.6 cm, 1.7 x 0.5 x 0.7 cm and 1.4 x 1.2 x 0.5 | | | cm. | | + + + + + | Procedure Note | + + | Dave, Rad Results In - 03/26/2019 1857 PDT EXAMINATION:US GROIN | | BILATERALHISTORY:inguinal swelling [...]
--- OUTSIDE RECORDS SUMMARY | ~2019-04-11 | XMS | Clinical Summary ---
Demographics + + + | Address | [address] | | | [place] [address] | + + + | Home Phone | | + + + | Preferred Language | Unknown | + + + | Marital Status | Single | + + + | Voodoo Affiliation | 1013 | + + + | Race | Unknown | + + + | Ethnic Group | Unknown | + + + Author + + + | Author | [facility] | | | and [place] | + + + | Organization | [facility] | | | and [place] | + + + | Address | Unknown | + + + | Phone | Unavailable | + + + Support + + + + + | Name | Relationship | Address | Phone | + + + + + | Mark Chatterjee | ECON | [place] [address] | | | | | Unknown | | + + + + + | Jean Claude Chatterjee | ECON | Unknown | | + + + + + Care Team Providers + +------+ + | Care Network Systems Administrator Name | Role | Phone | + +------+ + | Leroy Dougherty NP | PCP | | + +------+ + Allergies No Known Allergies Medications + + + +---------+------+------+-------+ | Medication | Sig | Dispensed | Refills | Star | End | Statu | | | | | | t | Date | s | | | | | | Date | | | + + + +---------+------+------+-------+ | acyclovir | Take 1 tablet by | 60 | 0 | 02/0 | 10/1 | Disco | | (ZOVIRAX) 400 MG | mouth 2 times daily. | tablet | | 01/02 | 07/05 | ntinu | | tabletIndications: | | | | 19 | 19 | ed | | Herpes simplex | | | | | | | | vulvovaginitis | | | | | | | + + + +---------+------+------+-------+ | penicillin 500 mg | | | 0 | 04/0 | 101 | Disco | | tablet | | | | 03/05 | 07/05 | ntinu | | | | | | 19 | 19 | ed | + + + +---------+------+------+-------+ Active Problems + + + | Problem [...] transferred at 28 | | wks from [place].Had positive chlamydia at 30 weeks as well as | | HSV. See note. Treated. HSV -will need medciation at 36 | | weeksChlamydia -will repeat test around 39 weeks. | | RH Rh Positive 02/14/2018 | | | |Rhogam n/a | |LINDSEY/NIPT | |Flu | |Tdap declined | | | |Problems: | | | |Patient transferred at 28 wks from [place]. | |Had positive chlamydia at 30 weeks [...] | 9 | + + + + Encounters +--------+ + + + + | Date | Type | Specialty | Care Team | Description | +--------+ + + + + | 03/26/ | Emergency | Emergency Medicine | Luisito Siegel | Inguinal | | 2019 | | | DO Kyle | lymphadenopathy | | | | | | (Primary Dx) | +--------+ + + + + from [...] 03/26/20191607 PDT | + + + + Plan [...] Influenza | | 08/10/2018 | | | (#1) | 9 | | | + + + + [...] | | | 2018 | | | 1601 | | | [...] S?MRN: | | | | | | [id number] | | | [id number] | | | riteri | | | [...] | | | St. | | | [place] | | | y | | | [...] | | | St. | | | [place] | | | y | | | Hospit | | | al | | | Patien | | | t is | | | curren | | | tly | | | establ | | | ished | | | with | | | St | | | [place] | | | y | | | [...] St | | | | | | [place] | | | y | | | [...] | | | St. | | | [place] | | | y | | | [...] Visits | | | | | | Remigio | | | Ronde | | | [...] | | | 2019 | | | Remigio | | | Ronde | | | [...] | | | 2019 | | | Remigio | | | [place] | | | [place] | | | [place] | | | [place] | | | Obstet | | | rics | | | | | | Contra | | | ctions | | | Feb | | | 17, | | | 2019 | | | [facility] | | | [place] | | | y H. | | [...] | | LEROY | | | R, SENIOR SYSTEMS DEVELOPER | | | Nurse | | | [...] the | | | | | | Remigio | | | Ronde | | | [...] [email or web address] | | | m | +---+--------+ from Last 3 Months Results US Groin Bilateral (03/26/2019 16:53 PDT) + + | Specimen [...] groin lymph nodes.Dictated by: Conrad | | Cieraectronically Signed by: Conrad Calix on 03/26/2019 6:54 PM | |None | | | |FINDINGS: | [...] nodes. | | | |Dictated by: Conrad Cailx | | | | | + + + +---------+ + + | Performing | Address | City/State/Zipcode | Phone Number | | Organization | | | | + +---------+ + + | [facility] | | | | + +---------+ + + from Last 3 Months Insurance [...] | [employer] | MODA | [id number] | 07/20/19 | [phone] | | Medica [...] | | | 9 (Home) | [place] [address] | + +--------+ +--------+ + + | Kristyn Cai | Third | Self | [birth year] | [address] | | [place] | Republican | | 2000 | [phone] | [address] [place], | | | Liabil | | | 9 (Home) | [place] [address] | | | ity | | | | | + +--------+ +--------+ + + Advance Directives Patient has advance care planning documents, and code status on file. For more information, please contact:[facility] [place] [address] + + + + + | Code Status | Date | Date | Comments | | | Activated | Inactivated | | + + + + + | Full Code | 08/07/2018 | 08/08/2018 | | | | 18:53 | 2:42 | | + + + + +
--- OUTSIDE RECORDS SUMMARY | ~2019-04-11 | XMS | Clinical Summary ---
Demographics + + + | Address | [address] | | | [place] [address] | + + + | Home Phone | | + + + | Preferred Language | Unknown | + + + | Marital Status | Single | + + + | Quaker Affiliation | 1013 | + + + | Race | Unknown | + + + | Ethnic Group | Unknown | + + + Author + + + | Author | [facility] | | | and [place] | + + + | Organization | [facility] | | | and [place] | + + + | Address | Unknown | + + + | Phone | Unavailable | + + + Support + + + + + | Name | Relationship | Address | Phone | + + + + + | Mark Chatterjee | ECON | [place] [address] | | | | | Unknown | | + + + + + | Jean Claude Chatterjee | ECON | Unknown | | + + + + + Care Team Providers + +------+ + | Care Head Of Advertising Name | Role | Phone | + [...] transferred at 28 | | wks from [place].Had positive chlamydia at 30 weeks as well as | | HSV. See note. Treated. HSV -will need medciation at 36 | | weeksChlamydia -will repeat test around 39 weeks. | | RH Rh Positive 02/14/2018 | | | |Rhogam n/a | |LINDSEY/NIPT | |Flu | |Tdap declined | | | |Problems: | | | |Patient transferred at 28 wks from [place]. | |Had positive chlamydia at 30 weeks [...] S?MRN: | | | | | | [id number] | | | [id number] | | | riteri | | | [...] | | | St. | | | [place] | | | y | | | [...] | | | St. | | | [place] | | | y | | | Hospit | | | al | | | Patien | | | t is | | | curren | | | tly | | | establ | | | ished | | | with | | | St | | | [place] | | | y | | | [...] St | | | | | | [place] | | | y | | | [...] | | | St. | | | [place] | | | y | | | [...] | | | St. | | | [place] | | | y H. | | [...] | | LEROY | | | R, METAL AND PLASTIC HEATER | | | Nurse | | | [...] nodes. | | | |Dictated by: Conrad Calxi | | | | | + + [...] | [employer] | MODA | [id number] | 07/20/19 | [phone] | | Medica [...] | | | 9 (Home) | [place] [address] | + +--------+ +--------+ + + | Kristyn Cai | Third | Self | [birth year] | | [address] | | Primit[place] | Democrat | | 2000 | [phone] | [address] [place], | | | Liabil | | | 9 (Home) | [place] [address] | | | ity | | | | | + +--------+ +--------+ + + Advance Directives Patient has advance care planning documents, and code status on file. For more information, please contact:[facility] [address] + + + + + | Code Status | Date | Date | Comments | | | Activated | Inactivated | | + + + + + | Full Code | 08/07/2018 | 08/08/2018 | | | | 18:53 | 2:42 | | + + + + +
--- OUTSIDE RECORDS SUMMARY | ~2019-04-11 | XMS | Encounter Summary ---
Demographics + + + | Address | [address] | | | [place] [address] | + + + | Home Phone | | + + + | Preferred Language | Unknown | + + + | Marital Status | Single | + + + | Jainism Affiliation | 1013 | + + + | Race | Unknown | + + + | Ethnic Group | Unknown | + + + Author + + + | Author | [facility] | | | and [place] | + + + | Organization | [facility] | | | and [place] | + + + | Address | Unknown | + + + | Phone | Unavailable | + + + Support + + + + + | Name | Relationship | Address | Phone | + + + + + | Mark Chatterjee | ECON | [place] [address] | | | | | Unknown | | + + + + + | Jean Claude Chatterjee | ECON | Unknown | | + + + + + Care Team Providers + +------+ + | Care Alley Cleaner Name | Role | Phone | [...] | [address], [place] | [place] [address] | | | | | [address] | [phone] | | | | | [phone] | | | +--------+ + + + [...] attachments cannot be sent through Care Everywhere.Lymphadenopathy (Tuvaluan)documented in this encounter Plan of Treatment + [...] S?MRN: | | | | | | [id number] | | | [id number] | | | riteri | | | [...] | | | St. | | | [place] | | | y | | | [...] | | | St. | | | [place] | | | y | | | Hospit | | | al | | | Patien | | | t is | | | curren | | | tly | | | establ | | | ished | | | with | | | St | | | [place] | | | y | | | [...] St | | | | | | [place] | | | y | | | [...] | | | [phone] | [phone] | | | .These | | | [...] | | | St. | | | [place] | | | y | | | [...] | | | St. | | | [place] | | | y H. | | [...] | | LEROY | | | R, [employer]KER MACHINE | | | Nurse | | | [...]
--- OUTSIDE RECORDS SUMMARY | 2019-04-11 16:58 | XMS ---
PreManage Notification: BRIGITTE IVY Security Expressive Art Therapist Events No recent Security Events currently on file CRITERIA MET - [facility] - Has Care Guidelines - [facility] - 2 Visits in 30 Days CARE PROVIDERS RAYMOND RASHEED Nurse Practitioner: Family 12/29/2017-Current PHONE: Unknown PENNY MARQUEZ 03/11/2018-Current PHONE: [phone] HAYDEE TREAN Primary Care Current PHONE: [phone] CHITO AGUILAR Primary Care 11/19/2017 PHONE: Unknown DOCTOR ROCHA Primary Care Current PHONE: Unknown [facility] Primary Care [facility] PHONE: Unknown [facility] Primary Care [facility] PHONE: [phone] Cornelio has no Care Guidelines for this patient. Care History Medical/Surgical 03/11/2018 [facility] - CHW SPOKE WITH PATIENT ABOUT ED UTILIZATION. - CHW DISCUSSED THE IMPORTANCE OF FOLLOW UP CARE WITH OBGYN DR ROCHA. - CHW DISCUSSED REFERRAL FOR [facility] PRO[facility] WHICH HELPS WITH FIRST TIME MOMS/. PATIENT DECLINED THE REFERRAL. - PATIENT STATED SHE WILL FOLLOW UP WITH HER OBGYN AND WILL SEEK NON EMERGENT MEDICAL CONCERNS THROUGH THE WALK IN CLINIC. 12/29/2017 [facility] - Patient is currently established with [facility]. If patient is seen in the ED during business hours. Please contact CHWs at [facility] at Ext [phone]. Care Recommendation: This patient has had 5 or more Emergency Department visits in the last 12 months.\T\nbsp; Patient requires education on the scope and purpose of the ED as an acute care provider not a Primary Care Provider and should not be utilized for chronic conditions.\T\nbsp; If patient returns to ED please contact [facility] Corinna Armendariz at [phone]. These are guidelines and the provider should exercise clinical judgment when providing care. 12/08/2017 [facility] Care Recommendation: \T\nbsp;Please refer patient to [facility] for non emergent visits and follow care. Patient is established with [facility]. This patient has had 5 or more Emergency Department visits in the last 12 months.\T\nbsp; Patient requires education on the scope and purpose of the ED as an acute care provider not a Primary Care Provider and should not be utilized for chronic conditions.\T\nbsp; If patient returns to ED please contact Corinna Villeda at [phone]. These are guidelines and the provider should exercise clinical judgment when providing care. E.D. VISIT COUNT (12 MO.) [address] [facility] [address] [facility] TOTAL 3 NOTE: Visits indicate total known visits. ED/UCC VISIT TRACKING (12 MO.) 04/11/2019 16:[address] [facility] [place] TYPE: Emergency COMPLAINT: - LACERATION 03/26/2019 15:59 Remigio [place]ARC[place] TYPE: Emergency DIAGNOSES: - Localized enlarged lymph nodes - Pelvic Pain 09/29/2018 17:22 [facility] [place] TYPE: Emergency DIAGNOSES: - panic attack, dehydration INPATIENT VISIT TRACKING (12 MO.) 08/07/2018 15:39 Rem[place]io [place] TYPE: Obstetrics DIAGNOSES: - Contractions 08/02/2018 20:57 LINDSEY [place] TYPE: Observation COMPLAINT: - LABOR DIAGNOSES: - labor without delivery, unspecified trimester - 36 weeks gestation of - False labor before 37 completed weeks of gest, third tri - Unspecified abdominal pain [email or web address]
[2019-04-11] MEDS ORDERED: ALEVE220 MG PO (17:12)
[2019-04-11] MEDS ORDERED: INDOMETHACIN50 MG PO (17:24)
== END 2019-04-11 17:41 | disposition home or self-care (01) ==
LOC: ED 16:55
DX: K14.9 Disease of tongue, unspecified (principal); Z87.891 Personal history of nicotine dependence
CPT/HCPCS: 96372; 99283; J1885

== ENCOUNTER 2019-11-19 23:06 | Emergency (ER) | payer MEDICAID ==
[~2019-11-19] VITALS: Ht 167.6 cm; Wt 58.5 kg
--- OUTSIDE RECORDS SUMMARY | ~2019-11-19 | XMS | Encounter Summary ---
Demographics + + + | Address | [address] | | | [place] [address] | + + + | Home Phone | | + + + | Preferred Language | Unknown | + + + | Marital Status | Single | + + + | Sabianist Affiliation | 1013 | + + + | Race | Unknown | + + + | Ethnic Group | Unknown | + + + Author + + + | Author | [facility] | | | and [place] | + + + | Organization | [facility] | | | and [place] | + + + | Address | Unknown | + + + | Phone | Unavailable | + + + Support + + + + + | Name | Relationship | Address | Phone | + + + + + | Mark Chatterjee | ECON | [place] [address] | | | | | Unknown | | + + + + + | Jean Claude Chatterjee | ECON | Unknown | | + + + + + Care Team Providers + +------+ + | Care Commercial Floor Covering Installer Name | Role | Phone | + +------+ + | Leroy Dougherty NP | PCP | | + +------+ + Reason for Visit + + + | Reason | Comments | + + + | Routine | | | Visit | | + + + Encounter Details +--------+ + + + + | Date | Type | Department | Care Team | Description | +--------+ + + + + | 07/23/ | Routine | [place] | Caty Schuster | GA: 34w4d | | 2019 | | [facility] | [address] | | | | | [address] | [place] | | | | | [address], | [facility] [place] | | | | | [place] [address] | [address] | | | | | [phone] | [phone] | | | | | | | | +--------+ + + + + Social History + +-------+ +--------+ + | [...] on file | | + + + + + + + | Job Start Date | Occupation | Industry | + + + + | Not on file | Not on file | Not on file | + + + + + + + + | Travel History | Travel Start | Travel End | + + + + + + | No recent travel history available. | + + documented as of this encounter Last Filed Vital Signs + + + + + | Vital Sign | Reading | Time Taken | Comments | + + + + + | Blood Pressure | 118/81 | 07/23/2018 3:15 PM | | | | | PST | | + + + + + | Pulse | - | - | | + + + + + | Temperature | - | - | | + + + + + | Respiratory Rate | - | - | | + + + + + | Oxygen Saturation | - | - | | + + + + + | Inhaled Oxygen | - | - | | | Concentration | | | | + + + + + | Weight | 70.8 kg (156 lb) | 07/23/2018 3:15 PM | | | | | PST | | + + + + + | Height | - | - | | + + + + + | Body Mass Index | 25.56 | 01/27/2018 2:04 PM | | | | | PDT | | + + + + + documented in this encounter Patient Instructions Patient Instructions Caty Schuster DO - 07/23/2018 3:30 PM PSTStop the vitamin. Try cool baths, especially when itchy. Use a non-scented lotion. Recommended Eucerin. Elect ronically signed by Caty Schuster DO at 07/23/2018 3:24 PM PST documented in this encounter Progress Notes Caitlin Santana LPN - 07/23/2018 3:30 PM PSTCalled and informed Kristyn the results of r lab testing. Per Dr. Schuster Caty Magallanes, - 07/23/2018 3:30 PM PSTBile acids are fine.Electro nically signed by Caty Schuster DO at 07/30/2018 6:51 AM Caty Magallanes, DO - 07/23/2018 3:30 PM PST . Patient Active Problem List Diagnosis Date Noted Herpes simplex vulvovaginitis 07/10/2018 , unspecified gestational age 0801/27/2018 Overview Note: (last update: 07/10/2018) Blood type Lab Results Component Value Date ABO O 02/14/2018 RH Rh Positive 02/14/2018 Rhogam n/a LINDSEY/NIPT Flu Tdap declined Problems: Patient transferred at 28 wks from [place]. Had positive chlamydia at 30 weeks as well as HSV. See note. Treated. HSV -will need medciation at 36 weeks Chlamydia -will repeat test around 39 weeks. Anxiety 03/24/2017 No LOF no VB. Few contractions, none serious. She is taking the vitamin inconsiste ntly. She is concerned for ICP. She c/o daily global pruritis. She has tried OTC anti-itch, and stretch yesica butter without relief. Will test for ICP with bile acids and CMP. WE reviewed it is uncommon. Wants induction [facility]. Will start acyclovir now.Electronically signed by Caty Schuster DO at 0 07/23/2018 3:31 PM PSTdocumented in this encounter Plan of Treatment Not on filedocumented as of this encounter Procedures + +--------+ + + + | Procedure Name | Priori | Date/Time | Associated Diagnosis | Comments | | | ty | | | | + +--------+ + + + | BILE ACIDS, TOTAL | Routin | 07/23/2018 | Itching | Results for this | | | e | 4:31 PM | | procedure are in the | | | | PST | | results section. | + +--------+ + + + | COMPREHENSIVE | Routin | 07/23/2018 | Normal | Results for this | | METABOLIC PANEL | e | 4:31 PM | in multigravida in | procedure are in the | | | | PST | third trimester 34 | results section. | | | | | weeks gestation of | | | | | | Itching | | + +--------+ + + + documented in this encounter Results Comprehensive Metabolic Panel (07/23/2018 4:31 PM PST) + + + + + + | Component | Value | Ref Range | Performed | Pathologist | | | | | At | Signature | + + + + + + | Na | 135 | 132 - 143 | [place] | | | | | mmol/L | [facility] | | | | | [facility] | | + + + + + + | K | 3.6 | 3.3 - 4.9 | [place] | | | | | mmol/L | [facility] | | | | | [facility] | | + + + + + + | Cl | 103 | 95 - 108 mmol/L | [place] | | | | | | [facility] | | | | [facility] | | + + + + + + | CO2 | 24 | 23 - 34 mmol/L | [place] | | | | | | [facility] | | | | [facility] | | + + + + + + | Anion Gap | 8 | 7 - 16 mmol/L | [facility] | | | | | | [facility] | [facility] | | [facility] | | + + + + + + | Glucose | 68 (L) | 70 - 110 mg/dL | [facility] | | | | | | [facility] | | | | [facility] | | + + + + + + | BUN | 3 (L) | 5 - 26 mg/dL | [facility] | | | | | | [facility] | | | | | | [facility] | | + + + + + + | Creatinine | 0.57 (L) | 0.60 - 1.30 | [place] | | | | | mg/dL | [facility] | | | | | | [facility] | | + + + + + + | eGFR if not | >60Comment: GLOMERULAR | >=60 | [place] | | | | FILTRATION | mL/min/1.73m2 | [facility] | | | [facility] | RATE,ESTIMATED | | [facility]ITAL | | | | mL/min/1.87p6Jddw than | | LABORATORY | | | | 60 Chronic kidney | | | | | | disease,if found over a | | | | | | 3-month period.Less than | | | | | | 15 Kidney failureFor | | | | | | | | | | | | Americans,multiply the | | | | | | calculated GFR by 1.21. | | | | | | | | | | + + + + + + | Calcium | 8.6 | 8.3 - 10.0 | [facility] | | | | | mg/dL | [facility] | | | | | | [facility] | | + + + + + + | Albumin | 2.6 (L) | 3.0 - 4.5 g/dL | [facility] | | | | | | [facility] | | | | | | [facility] | | + + + + + + | Bilirubin | 0.3 | 0.0 - 1.2 mg/dL | [facility] | | | Total | | | [facility] | | | | | | [facility] | | + + + + + + | Total | 6.6 | 6.6 - 8.5 g/dL | [facility] | | | Protein | | | [facility] | | | | | | [facility] | | + + + + + + | AST | 30 | 0 - 38 U/L | [facility] | | | | | | [facility] | | | | | | [facility] | | + + + + + + | ALT | 27 | 14 - 59 U/L | [facility] | | | | | | [facility] | | | | | | [facility] | | + + + + + + | Alkaline | 185 (H) | 46 - 116 U/L | [place] | | | Phosphatase | | | [facility] | | | | | | [facility] | | + + + + + + | Globulin | 4.0 | 2.4 - 4.5 g/dL | [facility] | | | | | | [facility] | | | | | | [facility] | | + + + + + + | Albumin/Elva | 0.7 (L) | 0.8 - 2.0 | [place] | | | bulin Ratio | | | [facility] | | | | | | [facility] | | + + + + + + | BUN/Creatin | 5.3 (L) | 7.0 - 24.0 | [place] | | | ine Ratio | | | [facility] | | | | | | [facility] | | + + + + + + + + | Specimen | + + | Blood | + + + + + + + | Performing | Address | City/State/Zipcode | Phone Number | | Organization | | | | + + + + + | [facility] | [address] | [place] | [phone] | | [facility] | | [address] | | + + + + + Bile Acids, Total (07/23/2018 4:31 PM PST) + + + + + + | Component | Value | Ref Range | Performed | Pathologist | | | | | At | Signature | + + + + + + | Bile Acids, | Comment: See Media tab | | REFERENCE | | | Total | for scanned image. | | [facility] | | | | | [facility] | | | | | | - [place] | | | | | | [place] | | + + + + + + + + | Specimen | + + | Blood | + + + + + | Narrative | Performed At | + + + | | | + + + + + + + + | Performing | Address | City/State/Zipcode | Phone Number | | Organization | | | | + + + + + | REFERENCE LAB | [id number] [facility] | [place], [place] | | | [facility] - | | [address] | | | [place] | | | | + + + + + documented in this encounter Visit Diagnoses + + | Diagnosis | + + | Normal in multigravida in third trimester - Primary | + + | 34 weeks gestation of state, incidental | + + | Itching Unspecified pruritic disorder | + + | Herpes simplex vulvovaginitis | + + documented in this encounter"
--- OUTSIDE RECORDS SUMMARY | ~2019-11-19 | XMS | Encounter Summary ---
Demographics + + + | Address | [address] | | | [place] [address] | + + + | Home Phone | | + + + | Preferred Language | Unknown | + + + | Marital Status | Single | + + + | Restorationist Affiliation | 1013 | + + + | Race | Unknown | + + + | Ethnic Group | Unknown | + + + Author + + + | Author | [facility] | | | and [place] | + + + | Organization | [facility] | | | and [place] | + + + | Address | Unknown | + + + | Phone | Unavailable | + + + Support + + + + + | Name | Relationship | Address | Phone | + + + + + | Mark Chatterjee | ECON | [place] [address] | | | | | Unknown | | + + + + + | Jean Claude Chatterjee | ECON | Unknown | | + + + + + Care Team Providers + +------+ + | Care Front Facer Name | Role | Phone | + [...] | +--------+ + + + + | 08/06/ | Routine | [place] | Caty Schuster | GA: 36w4d | | 2019 | | [facility] | [address] | | | | | CL[address] | [place] | | | | | [address]NA [place], | [facility], [place] | | | | | [place] [address] | [address] | | | | | [phone] | [phone] | | | | | | | [...] + + + | Blood Pressure | 130/81 | 08/06/2018 3:19 PM | | | | | PST [...] + + + + | Weight | 75.3 kg (166 lb) | 08/06/2018 3:19 PM | | | | | PST | | + + + + + | Height | - | - | | + + + + + | Body Mass Index | 27.2 | 01/27/2018 2:04 PM | | | | | PDT | | + + + + + documented in this encounter Progress Caty Jung, - 08/06/2018 3:15 PM PSTFormatting of this note might be diffe rent from the original. Patient Active Problem List Diagnosis Date Noted Herpes simplex vulvovaginitis 07/10/2018 , unspecified gestational age 0801/27/2018 Overview Note: (last update: 07/10/2018) Blood type Lab Results Component Value Date ABO O 02/14/2018 RH Rh Positive 02/14/2018 Rhogam n/a LINDSEY/NIPT Flu Tdap declined Problems: Patient transferred at 28 wks from [place]. Had positive chlamydia at 30 weeks as well as HSV. See note. Treated. HSV -will need medciation at 36 weeks Chlamydia -will repeat test around 39 weeks. Anxiety 03/24/2017 Closed T7 fracture (HCC) 12/21/2014 Recent Results (from the past 168 hour(s)) Urinalysis With Microscopic Collection Time: 08/04/18 15:45 Result Value Ref Range Color Yellow Pale Yellow, Yellow Clarity Cloudy (A) Clear pH, Urine 7.0 5.0 - 7.0 Specific [place] 1.010 1.003 - 1.030 Protein, Urine 30 mg/dL (A) Negative Blood, Urine Negative Negative Glucose, Urine Normal Normal Ketones, Urine 5 mg/dL (A) Negative Bilirubin, Urine 1 mg/dL (A) Negative Nitrite, Urine Negative Negative Leukocyte Esterase, Urine 500 franky/uL (A) Negative Urobilinogen, Urine 4 mg/dL (A) 0-1.0 mg/dL WBC UA 10 - 20 (A) <=5 /HPF RBC UA None Seen <=5 /HPF SQUAMOUS EPITHELIAL UA Many (A) None Seen /LPF BACTERIA UA Moderate (A) None Seen /HPF MUCUS UA Moderate (A) None seen /LPF Urinalysis with Microscopic with Culture if Indicated Collection Time: 08/04/18 16:50 Result Value Ref Range Color Pale Yellow Pale Yellow, Yellow Clarity Clear Clear pH, Urine 7.0 5.0 - 7.0 Specific [place] 1.005 1.003 - 1.030 Protein, Urine Negative Negative Blood, Urine 10 ilana/uL (A) Negative Glucose, Urine Normal Normal Ketones, Urine Negative Negative Bilirubin, Urine Negative Negative Nitrite, Urine Negative Negative Leukocyte Esterase, Urine 25 franky/uL (A) Negative Urobilinogen, Urine 1 mg/dL 0-1.0 mg/dL WBC UA 0-2 <=5 /HPF RBC UA None Seen <=5 /HPF SQUAMOUS EPITHELIAL UA Moderate (A) None Seen /LPF BACTERIA UA None Seen None Seen /HPF URINE COMMENT Urine Culture Not Indicated Has sore. On acyclovir. Feels like it is different then when last examined. She feels so me contractions but not regular. NO LOF or VB. Feeling good movement. GBS done EFW 3395 g (7-7) JACOB 11.6 cm We discussed that she really should not travel if she has any symptoms of contractions as s he could deliver at any point. The FOB is leaving soon and she is wanting to spend some mor e time with him before he goes. We will do a test for GC/chlamydia next week. documented in this encounter Plan of Treatment Not on filedocumented as of this encounter Procedures + +--------+ + + + | Procedure Name | Priori | Date/Time | Associated Diagnosis | Comments | | | ty | | | | + +--------+ + + + | OPAL STREP GROUP | Routin | 08/06/2018 | 36 weeks gestation | Results for this | | B | e | 3:40 PM | of | procedure are in the | | | | PST | | results section. | + +--------+ + + + documented in this encounter Results Culture,Strep Group B (08/06/2018 3:40 PM PST) + + + + + + | Component | Value | Ref Range | Performed | Pathologist | | | | | At | Signature | + + + + + + | Culture | No Group B Streptococcus | | [facility] | | | | isolated | | [facility] | | | [facility] | | | | | | [facility] | | + + + + + + + + | Specimen | + + | Tissue - Structure | | of lower third of | | vagina (body | | structure) | + + + + + + + | Performing | Address | City/State/Zipcode | Phone Number | | Organization | | | | + + + + + | [facility] | [address] | [place] | [phone] | | [facility] | | [address] | | + + + + + documented in this encounter Visit Diagnoses + + | Diagnosis | + + | 36 weeks gestation of - Primary state, incidental | + + | Normal in multigravida in third trimester | + + documented in this encounter"
--- OUTSIDE RECORDS SUMMARY | ~2019-11-19 | XMS | Encounter Summary ---
Demographics + + + | Address | [address] | | | [place] [address] | + + + | Home Phone | | + + + | Preferred Language | Unknown | + + + | Marital Status | Single | + + + | Catholic Affiliation | 1013 | + + + | Race | Unknown | + + + | Ethnic Group | Unknown | + + + Author + + + | Author | [facility] | | | and [place] | + + + | Organization | [facility] | | | and [place] | + + + | Address | Unknown | + + + | Phone | Unavailable | + + + Support + + + + + | Name | Relationship | Address | Phone | + + + + + | Mark Chatterjee | ECON | [place] [address] | | | | | Unknown | | + + + + + | Jean Claude Chatterjee | ECON | Unknown | | + + + + + Care Team Providers + +------+ + | Care Market Manager Name | Role | Phone | + [...] + + + + | 08/06/ | Hospital | [facility] | Caty Schuster | | | 2019 - | Encounter | [facility] | [address] | | | | | DELIVERY [address] | [place] | | | 08/07/ | | [address] [place] [place] | [place] | | | 2019 | | [address] | [address] | | | | | [phone] | [phone] | | | | | | | [...] + + documented as of this encounter Medications at Time of Discharge + + + +---------+ + + | Medication | Sig | Dispensed | Refills | Start | End Date | | | | | | Date | | + + + +---------+ + + | acyclovir | Take 1 tablet by | 60 | 0 | 07/23/19 | | | (ZOVIRAX) 400 MG | mouth 2 times daily. | tablet | | 19 | 9 | | tabletIndications: | | | | | | | Herpes simplex | | | | | | | vulvovaginitis | | | | | | + + + +---------+ + + | ferrous sulfate | Take 1 tablet by | 30 | 1 | 08/11/19 | | | 325 mg tablet | mouth daily (with | tablet | | 19 | 9 | | | breakfast). | | | | | + + + +---------+ + + | ibuprofen | Take 1 tablet by | 42 | 0 | 08/10/19 | | | (ADVIL,MOTRIN) 800 | mouth every 8 hours | tablet | | 19 | 9 | | MG tablet | as needed for up to | | | | | | | 14 days. | | | | | + + + +---------+ + + | oxyCODONE | Take 1 tablet by | 20 | 0 | 08/10/19 | | | (ROXICODONE) 5 mg | mouth every 4 hours | tablet | | 19 | 9 | | tablet | as needed for up to | | | | | | | 20 doses. | | | | | + + + +---------+ + + documented as of this encounter Plan of Treatment Not on filedocumented as of this encounter Visit Diagnoses Not on filedocumented in this encounter"
--- OUTSIDE RECORDS SUMMARY | ~2019-11-19 | XMS | Clinical Summary ---
Demographics + + + | Address | [address] | | | [place] [address] | + + + | Home Phone | | + + + | Preferred Language | Unknown | + + + | Marital Status | Single | + + + | Quaker Affiliation | 1013 | + + + | Race | Unknown | + + + | Ethnic Group | Unknown | + + + Author + + + | Author | [facility] | | | and [place] | + + + | Organization | [facility] | | | and [place] | + + + | Address | Unknown | + + + | Phone | Unavailable | + + + Support + + + + + | Name | Relationship | Address | Phone | + + + + + | Mark Chatterjee | ECON | [place] [address] | | | | | Unknown | | + + + + + | Jean Claude Chatterjee | ECON | Unknown | | + + + + + Care Team Providers + +------+ + | Care Billposter Name | Role | Phone | + +------+ + | Leroy Dougherty NP | PCP | | + +------+ + Allergies No Known Allergies Medications No known medications Active Problems + + + | Problem | Noted Date | + + + | Herpes simplex vulvovaginitis | 07/10/2018 | + + + | , unspecified gestational age | 01/27/2018 | + + + + + | Overview: Formatting of this note might be different from the | | original. Blood type Lab Results Component Value | | Date ABO O 02/14/2018 RH Rh Positive 02/14/2018 Rhogam n/a | | LINDSEY/NIPT Flu Tdap declined Problems:Patient transferred at 28 | | wks from [place].Had positive chlamydia at 30 weeks as well as | | HSV. See note. Treated. HSV -will need medciation at 36 | | weeksChlamydia -will repeat test around 39 weeks. | | RH Rh Positive 02/14/2018 | | | |Rhogam n/a | |LINDSEY/NIPT | |Flu | |Tdap declined | | | |Problems: | | | |Patient transferred at 28 wks from [place]. | |Had positive chlamydia at 30 weeks as well as HSV. See note. | |Treated. | |HSV | | -will need medciation at 36 weeks | |Chlamydia | | -will repeat test around 39 weeks. | + + + + + | Anxiety | 03/24/2017 | + + + | Closed T7 fracture | 12/21/2014 | + + + Resolved Problems + + + + | Problem | Noted | Resolved | | | Date | Date | + + + + | labor in third trimester with delivery | 08/07/19 | | | | 19 | 9 | + + + + Immunizations + + + + | Name | Administration Dates | Next Due | + + + + | DTAP, 5 DOSE (PED) | 07/27/2003, 02/11/2001, 01/09/1999, | | | | 1998, 1998 | | + + + + | DTAP, 5 PERTUSSIS | 07/27/2003, 02/11/2001, 01/09/1999, | | | ANTIGENS | 1998, 1998 | | + + + + | HEP A, 2 DOSE | 08/08/2009, 07/03/2007 | | | (ADULT) | | | + + + + | HEP A, 2 DOSE | 08/08/2009, 07/03/2007 | | | (PED/ADOL) | | | + + + + | HIB (PRP-T), 4 DOSE | 07/04/1999, 01/09/1999, 1998, | | | (PED) | 1998 | | + + + + | HPV 9-VALENT RECOMB | 12/18/2016 | | | VACCINE IM | | | + + + + | Hep B (PED/ADOL) 3 | 01/09/1999, 1998, 1998 | | | DOSE | | | + + + + | INFLUENZA PF | 08/10/2018 | | | QUAD(PED/ADOL/ADULT) | | | | ,PSKT or VIAL | | | + + + + | IPV, 4 DOSE | 07/27/2003, 01/09/1999, 1998, | | | (PED/ADULT) | 1998 | | + + + + | MENINGOCOCCAL | 10/29/2016 | | | CONJUGATE,MENACTRA | | | | (PED/ADOL/ADULT) | | | + + + + | MMR, 2 DOSE | 10/29/2016, 07/27/2003, 07/04/1999 | | | (PED/ADULT) | | | + + + + | PNEUMOCOCCAL | 02/12/2001 | | | CONJUGATE 13-VALENT | | | | (PCV13) | | | + + + + | PNEUMOCOCCAL PCV7 | 02/12/2001 | | | (PED) | | | + + + + | POLIOVIRUS,OPV | 01/09/1999 | | | (LIVE) | | | + + + + | TDAP, (ADOL/ADULT) | 08/10/2018, 08/08/2009 | | + + + + | VARICELLA, 2 DOSE | 07/03/2007, 02/12/2001 | | | (VARIVAX) | | | + + + + Family History + + +------+ + | Medical History | Relation | Name | Comments | + + +------+ + | Cancer | Maternal | | | | | Grandfath | | | | | er | | | + + +------+ + | Stroke | Paternal | | | | | Grandmoth | | | | | er | | | + + +------+ + + +------+--------+ + | Relation | Name | Status | Comments | + +------+--------+ + | Maternal Grandfather | | | | + +------+--------+ + | Paternal Grandmother | | | | + +------+--------+ + Social History + +-------+ +--------+ + [...] Comments | + + +---------+ + | Yes | | | monthly | + + +---------+ + + + [...] recent travel history available. | + + Last Filed Vital Signs + + + + + | Vital Sign | Reading | Time Taken | Comments | + + + + + | Blood Pressure | 117/57 | 03/26/2019 6:08 PM | | | | | PDT | | + + + + + | Pulse | 65 | 03/26/2019 6:07 PM | | | | | PDT | | + + + + + | Temperature | 36.5 C (97.7 F) | 03/26/2019 4:08 PM | | | | | PDT | | + + + + + | Respiratory Rate | 16 | 03/26/2019 4:08 PM | | | | | PDT | | + + + + + | Oxygen Saturation | 96% | 03/26/2019 6:07 PM | | | | | PDT | | + + + + + | Inhaled Oxygen | - | - | | | Concentration | | | | + + + + + | Weight | 54.4 kg (120 lb) | 03/26/2019 4:08 PM | | | | | PDT | | + + + + + | Height | 165.1 cm (5' 5") | 03/26/2019 4:08 PM | | | | | PDT | | + + + + + | Body Mass Index | 19.97 | 03/26/2019 4:08 PM | | | | | PDT | | + + + + + Plan of Treatment + + + + + | Health Maintenance | Due Date | Last Done | Comments | + + + + + | Well Child Check | | | | | | 2 | | | + + + + + | Vaccine: HPV (2 - | | 12/18/2016 | | | Female 3-dose | 7 | | | | series) | | | | + + + + + | Cervical Cancer | | | | | Screening (Pap) | 0 | | | + + + + + | Primary Care | | 08/17/2018, 12/05/2017 | | | Outreach (Moderate | 0 | | | | Risk) | | | | + + + + + | Vaccine: Influenza | | 08/10/2018 | | | (Season Ended) | 0 | | | + + + + + | Vaccine: | | 08/10/2018, 08/08/2009, | | | Dtap/Tdap/Td (8 - | 9 | 07/27/2003, Additional history | | | Td) | | exists | | + + + + + Results Not on filefrom Last 3 Months Insurance + +--------+ +--------+ +---------+--------+ | Payer | Benefi | Subscriber | Effect | Phone | Address | Type | | | t Plan | ID | jw | | | | | | / | | Dates | | | | | | Group | | | | | | + +--------+ +--------+ +---------+--------+ | [employer] | MODA | [id number] | 06/19/19 | [phone] | | Medica | | MEDICAID HMO | HEALTH | | 19-Pre | 1 | | id | | | [place] | | [place] | | | | | [place] | | | | | | + +--------+ +--------+ +---------+--------+ | [employer] | [employer] | [id number] | 07/20/19 | [phone] | | Medica | | MEDICAID HMO | HEALTH | | 19-Pre | 1 | | id | | | MDCD | | [place] | | | | | | [place] | | | | | | + +--------+ +--------+ +---------+--------+ + +--------+ +--------+ + + | Guarantor Name | Accoun | Relation to | Date | Phone | Billing Address | | | t Type | Patient | of | | | | | | | | | | + +--------+ +--------+ + + | Kristyn Cai | Person | Self [birth year] | [address] | | Primitivo | chris/Saeed | | 2000 | [phone] | [address] [place], | | | sary | | | 9 (Home) | [place] [address] | + +--------+ +--------+ + + | Kristyn Cai | Person | Self | [birth year] | [address] | | Primitivo | al/Fam | | 2000 | [phone] | [address] [place], | | | sary | | | [address] (Home) | [place] [address] | + +--------+ +--------+ + + | Kristyn Cai | Third | Self | [birth year] | [address] | | Primitivo | Green Party | | 2000 | [phone] | [address] [place], | | | Liabil | | | 9 (Home) | [place] [address] | | | ity | | | | | + +--------+ +--------+ + + Advance Directives + + + + + | Type | Date Recorded | Patient | Explanation | | | | Shared Services And Outsourcing Manager | | + + + + + | Power of | | | | | Finger Lift Operator | | | | + + + + + | Advance | 03/26/2019 | | | | Directive | 5:24 PM | | | + + + + + + + + + + | Code Status | Date | Date | Comments | | | Activated | Inactivated | | + + + + + | Full Code | 08/07/2018 | 08/08/2018 | | | | 6:53 PM | 2:42 AM | | + + + + +
--- OUTSIDE RECORDS SUMMARY | ~2019-11-19 | XMS | Encounter Summary ---
Demographics + + + | Address | [address] | | | [place] [address] | + + + | Home Phone | | + + + | Preferred Language | Unknown | + + + | Marital Status | Single | + + + | Church Affiliation | 1013 | + + + | Race | Unknown | + + + | Ethnic Group | Unknown | + + + Author + + + | Author | [facility] | | | and [place] | + + + | Organization | [facility] | | | and [place] | + + + | Address | Unknown | + + + | Phone | Unavailable | + + + Support + + + + + | Name | Relationship | Address | Phone | + + + + + | Mark Chatterjee | ECON | [place] [address] | | | | | Unknown | | + + + + + | Jean Claude Chatterjee | ECON | Unknown | | + + + + + Care Team Providers + +------+ + | Care Transfer And Pumphouse Operator Chief Name | Role | Phone | + +------+ + | Leroy Dougherty NP | PCP | | + +------+ + Reason for Visit + + + | Reason | Comments | + + + | Pharmacy / Med | | + + + Encounter Details +--------+ + + + + | Date | Type | Department | Care Team | Description | +--------+ + + + + | 07/01/ | Telephone | [facility] | Caty Schuster | Pharmacy / Med | | 2019 | | [facility] | [address] | | | | | [address] | [address] [place] | | | | | [address], | [facility], [place] | | | | | [place] [address] | [address] | | | | | [phone] | [phone] | | | | | | | [...]
--- OUTSIDE RECORDS SUMMARY | ~2019-11-19 | XMS | Encounter Summary ---
Demographics + + + | Address | [address] | | | [place] [address] | + + + | Home Phone | | + + + | Preferred Language | Unknown | + + + | Marital Status | Single | + + + | Lutheran Affiliation | 1013 | + + + | Race | Unknown | + + + | Ethnic Group | Unknown | + + + Author + + + | Author | [facility] | | | and [place] | + + + | Organization | [facility] | | | and [place] | + + + | Address | Unknown | + + + | Phone | Unavailable | + + + Support + + + + + | Name | Relationship | Address | Phone | + + + + + | Mark Chatterjee | ECON | [place] [address] | | | | | Unknown | | + + + + + | Jean Claude Chatterjee | ECON | Unknown | | + + + + + Care Team Providers + +------+ + | Care Feather Mixer Name | Role | Phone | + [...] + + + | | | | Diagnoses | | | | | | | | | | +--------+--------+ + + + + Encounter Details +--------+ + + + + | Date | Type | Department | Care Team | Description | +--------+ + + + + | 08/04/ | Hospital | [facility] | Caty Schuster | | | 2019 | Encounter | [facility] | [address] | | | | | [address] | [address] | | | | | [address] [place] | [place] | | | | | [address] | [address] | | | | | [phone] | [phone] | | | | | | | [...] | + +--------+ + + + | URINALYSIS WITH | STAT | 08/04/2018 | | Results for this | | MICROSCOPIC WITH | | 4:50 PM | | procedure are in the | | CULTURE IF INDICATED | | PST | | results section. | + +--------+ + + + | URINALYSIS WITH | Routin | 08/04/2018 | | Results for this | | MICROSCOPIC | e | 3:45 PM | | procedure are in the | | | | PST | | results section. | + +--------+ + + + documented in this encounter Results Urinalysis with Microscopic with Culture if Indicated (08/04/2018 4:50 PM PST) + + + + + + | Component | Value | Ref Range | Performed | Pathologist | | | | | At | Signature | + + + + + + | Color, | Pale Yellow | Pale Yellow, | [facility] | | | Urine | | Yellow | [facility] | | | | | | [facility] | | + + + + + + | Clarity | Clear | Clear | [facility] | | | | | | [facility] | | | | | [facility] | | + + + + + + | pH, Urine | 7.0 | 5.0 - 7.0 | [facility] | | | | | | [facility] | | [facility] | [facility] | | | | | | [facility] | | + + + + + + | Specific | 1.005 | 1.003 - 1.030 | [facility] | | | [place], | | | [facility] | | | Urine | | | [facility] | | | | | | LABORATORY | | + + + + + + | Protein, | Negative | Negative | [facility] | | | Urine | | | [facility] | | | | [facility] | | | | | | [facility] | | + + + + + + | Blood, | 10 ilana/uL (A) | Negative | [facility] | | | Urine | | | [facility] | | | | | | [facility]ORY | | + + + + + + | Glucose, | Normal | Normal | [facility] | | | Urine | | | [facility] | | | | [facility] | | | | | | [facility] | | + + + + + + | Ketones, | Negative | Negative | [facility] | | | Urine | | | [facility] | | | | [facility] | | | | | | [facility] | | + + + + + + | Bilirubin, | Negative | Negative | [facility] | | | Urine | | | [facility] | | | | | | [facility] | | + + + + + + | Nitrite, | Negative | Negative | [facility] | | | Urine | | | [facility] | | | | [facility] | | | | | | [facility] | | + + + + + + | Leukocyte | 25 franky/uL (A) | Negative | [facility] | | | Esterase, | | | [facility] | | | Urine | | | [facility] | | | | | | LAB[facility]ATORY | | + + + + + + | Urobilinoge | 1 mg/dL | 0-1.0 mg/dL | [facility] | | | n, Urine | | | [facility] | | | | [facility] | | | | | | [facility] | | + + + + + + | White Blood | 0-2 | <=5 /HPF | [facility] | | | Cells, | | | [facility] | | | Urine | | | [facility] | | | | | | LABORATORY | | + + + + + + | Red Blood | None Seen | <=5 /HPF | [facility] | | | Cells, | | | [facility] | | | Urine | | | [facility] | | | | | | LABORATORY | | + + + + + + | Squamous | Moderate (A) | None Seen /LPF | [facility] | | | Epithelial | | | [facility] | | | Cells, | | | [facility]OSPITAL | | | Urine | | | LABORATORY | | + + + + + + | Bacteria, | None Seen | None Seen /HPF | [facility] | | | Urine | | | [facility] | | | | [facility] | | | | | | LAB[facility]ATORY | | + + + + + + | Urine | Urine Culture Not | | [facility] | | | Comment | Indicated | | [facility] | | | | | | [facility] | | + + + + + + + + | Specimen | + + | Urine - Urine | | specimen obtained | | via indwelling | | urinary catheter | | (specimen) | + + + + + + + | Performing | Address | City/State/Zipcode | Phone Number | | Organization | | | | + + + + + | [facility] | [address] | [place] | [phone] | | [facility] | | [address] | | + + + + + Urinalysis With Microscopic (08/04/2018 3:45 PM PST) + + + + + + | Component | Value | Ref Range | Performed | Pathologist | | | | | At | Signature | + + + + + + | Color, | Yellow | Pale Yellow, | [facility] | | | Urine | | Yellow | [facility] | | | | | | [facility] | | + + + + + + | Clarity | Cloudy (A) | Clear | [facility] | | | | | | [facility] | [facility] | | | | | | [facility] | | + + + + + + | pH, Urine | 7.0 | 5.0 - 7.0 | [facility] | | | | | | [facility] | | [facility] | | | | | | [facility] | | + + + + + + | Specific | 1.010 | 1.003 - 1.030 | [facility] | | | [place], | | | [facility] | | | Urine | | | [facility] | | | | | | LABORATORY | | + + + + + + | Protein, | 30 mg/dL (A) | Negative | [facility] | | | Urine | | | [facility] | | | | [facility] | | | | | | [facility] | | + + + + + + | Blood, | Negative | Negative | [facility] | | | Urine | | | [facility] | | | | [facility] | | | | | | [facility] | | + + + + + + | Glucose, | Normal | Normal | [facility] | | | Urine | | | [facility] | | | | [facility] | | | | | | [facility] | | + + + + + + | Ketones, | 5 mg/dL (A) | Negative | [facility] | | | Urine | | | [facility] | | | | [facility] | | | | | | [facility] | | + + + + + + | Bilirubin, | 1 mg/dL (A) | Negative | [facility] | | | Urine | | | [facility] | [facility] | [facility] | | | | | | [facility] | | + + + + + + | Nitrite, | Negative | Negative | [facility] | | | Urine | | | [facility] | | | | [facility] | | | | | | [facility] | | + + + + + + | Leukocyte | 500 franky/uL (A) | Negative | [facility] | | | Esterase, | | | [facility] | | | Urine | | | [facility] | | | | | | LAB[facility]ATORY | | + + + + + + | Urobilinoge | 4 mg/dL (A) | 0-1.0 mg/dL | [facility] | | | n, Urine | | | [facility] | | | | [facility] | | | | | | [facility] | | + + + + + + | White Blood | 10 - 20 (A) | <=5 /HPF | [facility] | | | Cells, | | | [facility] | | | Urine | | | [facility] | | | | | | LABORATORY | | + + + + + + | Red Blood | None Seen | <=5 /HPF | [facility] | | | Cells, | | | [facility] | | | Urine | | | [facility] | | | | | | LABORATORY | | + + + + + + | Squamous | Many (A)Comment: | None Seen /LPF | [facility] | | | Epithelial | Moderate Clue cells | | [facility] | | | Cells, | | | [facility] | | | Urine | | | LABORATORY | | + + + + + + | Bacteria, | Moderate (A) | None Seen /HPF | [facility] | | | Urine | | | [facility] | | | | | [facility] | | | | | | [facility]ORY | | + + + + + + | Mucus, | Moderate (A) | None seen /LPF | [facility] | | | Urine | | | [facility] | | | | [facility] | | | | | | [facility]ORY | | + + + + + + + + | Specimen | + + | Urine - Urine | | specimen obtained by | | clean catch | | procedure (specimen) | + + + + + + + | Performing | Address | City/State/Zipcode | Phone Number | | Organization | | | | + + + + + | [facility] | [address] | [place] | [phone] | | [facility]OS[facility] | | [address] | | + + + + + documented in this encounter Visit Diagnoses Not on filedocumented in this encounter"
--- OUTSIDE RECORDS SUMMARY | ~2019-11-19 | XMS | Encounter Summary ---
Demographics + + + | Address | [address] | | | [place] [address] | + + + | Home Phone | | + + + | Preferred Language | Unknown | + + + | Marital Status | Single | + + + | Rastafari Affiliation | 1013 | + + + | Race | Unknown | + + + | Ethnic Group | Unknown | + + + Author + + + | Author | [facility] | | | and [place] | + + + | Organization | [facility] | | | and [place] | + + + | Address | Unknown | + + + | Phone | Unavailable | + + + Support + + + + + | Name | Relationship | Address | Phone | + + + + + | Mark Chatterjee | ECON | [place] [address] | | | | | Unknown | | + + + + + | Jean Claude Chatterjee | ECON | Unknown | | + + + + + Care Team Providers + +------+ + | Care Sintering Press Operator Name | Role | Phone | + [...] | +--------+ + + + + | 07/09/ | Routine | [facility] | Caty Schuster | GA: [id number] | | 2019 | | [facility] | [address] | | | | | [address] | [address] | | | | | [address], | [facility], [place] | | | | | [place] [address] | [address] | | | | | [phone] | [phone] | | | | | | | [...] + + + | Blood Pressure | 119/71 | 07/09/2018 3:20 PM | | | | | PST [...] + + + + | Weight | 69.4 kg (153 lb) | 07/09/2018 3:20 PM | | | | | PST | | + + + + + | Height | - | - | | + + + + + | Body Mass Index | 25.07 | 01/27/2018 2:04 PM | | | | | PDT | | + + + + + documented in this encounter Progress Caty Jung, - 07/09/2018 3:30 PM PSTFormatting of this note might be diffe rent from the original. Patient Active Problem List Diagnosis Date Noted Herpes simplex vulvovaginitis 07/10/2018 , unspecified gestational age 0801/27/2018 Overview Note: (last update: 07/10/2018) Blood type Lab Results Component Value Date ABO O 02/14/2018 RH Rh Positive 02/14/2018 Rhogam n/a LINDSEY/NIPT Flu Tdap declined Problems: Patient transferred at 28 wks from [place]. Had positive chlamydia at 30 weeks as well as HSV. See note. Treated. HSV -will need medciation at 36 weeks Chlamydia -will repeat test around 39 weeks. Anxiety 03/24/2017 Patient is doing ok. Her boyfriend and her both took the azithromycin. She declines Tdap. Patient denies LOF or VB. She denies contractions. She is feeling good movement. Will start acyclovir again at 36 weeks. Will repeat chlamydia testing at 39 weeks. Electr onically signed by Caty Schuster DO at 07/10/2018 11:02 AM PSTdocumented in this e ncounter Plan of Treatment Not on filedocumented as of this encounter Visit Diagnoses + + | Diagnosis | + + | 32 weeks gestation of - Primary state, incidental | + + | , unspecified gestational age | + + | Herpes simplex vulvovaginitis | + + documented in this encounter"
--- OUTSIDE RECORDS SUMMARY | ~2019-11-19 | XMS | Encounter Summary ---
Demographics + + + | Address | [address] | | | [place] [address] | + + + | Home Phone | | + + + | Preferred Language | Unknown | + + + | Marital Status | Single | + + + | Episcopal Affiliation | 1013 | + + + | Race | Unknown | + + + | Ethnic Group | Unknown | + + + Author + + + | Author | [facility] | | | and [place] | + + + | Organization | [facility] | | | and [place] | + + + | Address | Unknown | + + + | Phone | Unavailable | + + + Support + + + + + | Name | Relationship | Address | Phone | + + + + + | Mark Chatterjee | ECON | [place] [address] | | | | | Unknown | | + + + + + | Jean Claude Chatterjee | ECON | Unknown | | + + + + + Care Team Providers + +------+ + | Care Unemployment Insurance Hearing Officer Name | Role | Phone | + +------+ + | Leroy Dougherty NP | PCP | | + +------+ + Encounter Details +--------+ + + + + | Date | Type | Department | Care Team | Description | +--------+ + + + + | 06/11/ | Abstract | [facility] | Caitlin Santana, | | | 2017 | | [facility] | BLOOD BANK ASSISTANT | | | | | CLINIC [address] | | | | | | [address], | | | | | | [place] [address] | | | | | | [phone] | | | +--------+ + + + [...] | + +--------+ + + + | C. TRACHOMATIS AND | Routin | 02/14/2018 | | Results for this | | N. GONORRHOEAE AND | e | | | procedure are in the | | T. VAGINALIS, NAAT | | | | results section. | + +--------+ + + + | RPR, QUALITATIVE | Routin | 02/14/2018 | | Results for this | | | e | | | procedure are in the | | | | | | results section. | + +--------+ + + + | HEMOGLOBIN AND | Routin | 02/14/2018 | | Results for this | | HEMATOCRIT | e | | | procedure are in the | | | | | | results section. | + +--------+ + + + | C. TRACHOMATIS AND | Routin | 02/14/2018 | | Results for this | | N. GONORRHOEAE, NAAT | e | | | procedure are in the | | | | | | results section. | + +--------+ + + + | ABO RH | Routin | 02/14/2018 | | Results for this | | | e | | | procedure are in the | | | | | | results section. | + +--------+ + + + | RUBELLA AB, IGG | Routin | 02/14/2018 | | Results for this | | | e | | | procedure are in the | | | | | | results section. | + +--------+ + + + | RAPID PLASMA REAGIN, | Routin | 02/14/2018 | | Results for this | | QUAL | e | | | procedure are in the | | | | | | results section. | + +--------+ + + + | HIV 1 AND 2 AB, | Routin | 02/14/2018 | | Results for this | | REFLEX | e | | | procedure are in the | | | | | | results section. | + +--------+ + + + | HEPATITIS B SURFACE | Routin | 02/14/2018 | | Results for this | | AG | e | | | procedure are in the | | | | | | results section. | + +--------+ + + + | PLATELET COUNT | Routin | 02/14/2018 | | Results for this | | | e | | | procedure are in the | | | | | | results section. | + +--------+ + + + | ANTIBODY SCREEN | Routin | 02/14/2018 | | Results for this | | | e | | | procedure are in the | | | | | | results section. | + +--------+ + + + documented in this encounter Results Rubella Ab, IgG (02/14/2018) + + + + + + | Component | Value | Ref Range | Performed | Pathologist | | | | | At | Signature | + + + + + + | Rubella IgG | Negative | Negative, | | | | Ab | | Equivocal | | | + + + + + + + + | Specimen | + + | Blood | + + Rapid Plasma Reagin, Qual (02/14/2018) + + + + + + | Component | Value | Ref Range | Performed | Pathologist | | | | | At | Signature | + + + + + + | Treponema | Non Reactive | | | | | Pallidum | | | | | | Ab, Qual | | | | | + + + + + + + + | Specimen | + + | Blood | + + HIV 1 and 2 Ab, Reflex (02/14/2018) + + + + + + | Component | Value | Ref Range | Performed | Pathologist | | | | | At | Signature | + + + + + + | HIV 1 and 2 | Negative | | | | | Ab | | | | | + + + + + + + + | Specimen | + + | Blood | + + Hepatitis B Surface Ag (02/14/2018) + + + + + + | Component | Value | Ref Range | Performed | Pathologist | | | | | At | Signature | + + + + + + | Hepatitis B | negative | | | | | Surface Ag | | | | | + + + + + + + + | Specimen | + + | Blood | + + Hemoglobin and Hematocrit (02/14/2018) + +-------+ + + + | Component | Value | Ref Range | Performed | Pathologist | | | | | At | Signature | + +-------+ + + + | Hemoglobin | 12.1 | 11.6 - 15.5 | | | | | | gm/dL | | | + +-------+ + + + | Hct | 39.8 | 35.0 - 46.0 % | | | + +-------+ + + + + + | Specimen | + + | Blood | + + C. trachomatis and N. gonorrhoeae, NAAT (02/14/2018) + + + + + + | Component | Value | Ref Range | Performed | Pathologist | | | | | At | Signature | + + + + + + | Chlamydia | Negative | Negative | | | | trachomatis | | | | | | DNA PCR | | | | | + + + + + + ABO Rh (02/14/2018) + + + + + + | Component | Value | Ref Range | Performed | Pathologist | | | | | At | Signature | + + + + + + | ABO | O | | | | + + + + + + | Rh Type | Rh Positive | | | | + + + + + + + + | Specimen | + + | Blood | + + C. TRACHOMATIS AND N. GONORRHOEAE AND T. VAGINALIS, NAAT (02/14/2018) + + + + + + | Component | Value | Ref Range | Performed | Pathologist | | | | | At | Signature | + + + + + + | Neisseria | Negative | | | | | gonorrhoeae | | | | | | DNA PCR | | | | | + + + + + + RPR, Qualitative test (02/14/2018) + + + + + + | Component | Value | Ref Range | Performed | Pathologist | | | | | At | Signature | + + + + + + | Treponema | non reactive | | | | | Pallidum Ab | | | | | | Total | | | | | + + + + + + + + | Specimen | + + | Blood | + + Platelet Count (02/14/2018) + +-------+ + + + | Component | Value | Ref Range | Performed | Pathologist | | | | | At | Signature | + +-------+ + + + | Platelet | 180 | 10*3/uL | | | | Count | | | | | + +-------+ + + + + + | Specimen | + + | Blood | + + Antibody Screen (02/14/2018) + + + + + + | Component | Value | Ref Range | Performed | Pathologist | | | | | At | Signature | + + + + + + | Antibody | Negative | | | | | Screen | | | | | + + + + + + + + | Specimen | + + | Blood | + + documented in this encounter Visit Diagnoses Not on filedocumented in this encounter"
--- OUTSIDE RECORDS SUMMARY | ~2019-11-19 | XMS | Encounter Summary ---
Demographics + + + | Address | [address] | | | [place] [address] | + + + | Home Phone [...] + + | Author | [facility] | | | and [place] | + + + | Organization | [facility] | | | and [place] | + + + | Address | Unknown | + + + | Phone | Unavailable | + + + Support + + + + + | Name | Relationship | Address | Phone | + + + + + | Mark Chatterjee | ECON | [place] [address] | | | | | Unknown | | + + + + + | Jean Claude Chatterjee | ECON | Unknown | | + + + + + Care Team Providers + +------+ + | Care Credit Collections Clerk Name | Role | Phone | + [...] [place] | | | | | [address] | [address] | | | | | [phone] | [phone] | | | | | | | [...] - 1.030 | [facility] | | | [place], | | | [place] | | | [...] + + | [facility] | [address] | [place] | [phone] | | HOS[facility]ITAL [facility] | | [address] | | + + + + + [...] - 1.030 | [facility] | | | [place], | | | [place] | | | [...] + + | [facility] | [address] | [place] | [phone] | | HOSPITAL [facility] | | [address] | | + + + + + documented in this encounter Visit Diagnoses Not on filedocumented in this encounter"
--- OUTSIDE RECORDS SUMMARY | ~2019-11-19 | XMS | Encounter Summary ---
Demographics + + + | Address | [address] | | | [place] [address] | + + + | Home Phone | | + + + | Preferred Language | Unknown | + + + | Marital Status | Single | + + + | Anabaptist Affiliation | 1013 | + + + | Race | Unknown | + + + | Ethnic Group | Unknown | + + + Author + + + | Author | [facility] | | | and [place] | + + + | Organization | [facility] | | | and [place] | + + + | Address | Unknown | + + + | Phone | Unavailable | + + + Support + + + + + | Name | Relationship | Address | Phone | + + + + + | Mark Chatterjee | ECON | [place] [address] | | | | | Unknown | | + + + + + | Jean Claude Chatterjee | ECON | Unknown | | + + + + + Care Team Providers + +------+ + | Care Senior System Operator Name | Role | Phone | + +------+ + | Leroy Dougherty NP | PCP | | + +------+ + Encounter Details +--------+ + + + + | Date | Type | Department | Care Team | Description | +--------+ + + + + | 06/30/ | Orders Only | [facility] | Caitlin Santana, | Chlamydia infection | | 2019 | | [facility] | CLINICAL DERMATOLOGIST | affecting | | | | CLINIC [address] | | in third trimester | | | | [address], | | (Primary Dx) | | | | [place] [address] | | | | | | [phone] | | | +--------+ + + + [...] + | Diagnosis | + + | Chlamydia infection affecting in third trimester - Primary | + + documented in this encounter"
--- OUTSIDE RECORDS SUMMARY | ~2019-11-19 | XMS | Encounter Summary ---
Demographics + + + | Address | [address] | | | [place] [address] | + + + | Home Phone | | + + + | Preferred Language | Unknown | + + + | Marital Status | Single | + + + | Scientology Affiliation | 1013 | + + + | Race | Unknown | + + + | Ethnic Group | Unknown | + + + Author + + + | Author | [facility] | | | and [place] | + + + | Organization | [facility] | | | and [place] | + + + | Address | Unknown | + + + | Phone | Unavailable | + + + Support + + + + + | Name | Relationship | Address | Phone | + + + + + | Mark Chatterjee | ECON | [place] [address] | | | | | Unknown | | + + + + + | Jean Claude Chatterjee | ECON | Unknown | | + + + + + Care Team Providers + +------+ + | Care Dispersion Mixer Name | Role | Phone | [...] / Med | | 2019 | | [facility] | [address] | | | | | CLIN[address] | [address] | | | | | [address], | [facility], [place] | | | | | [place] [address] | [address] | | | | | [phone] | [phone] | | | | | | | [...]
--- OUTSIDE RECORDS SUMMARY | ~2019-11-19 | XMS | Encounter Summary ---
Demographics + + + | Address | [address] | | | [place] [address] | + + + | Home Phone [...] Mark Chatterjee | ECON | [place] [address] | | | | | Unknown | | + + + + + | Jean Claude Chatterjee | ECON | Unknown | | + + + + + Care Team Providers + +------+ + | Care Manufacturing Process Technician Name | Role | Phone | + [...] | +--------+ + + + + | 06/25/ | Routine | [facility] | Caty Schuster | GA: [id number] | | 2019 | | [facility] | [address] | | | | | CLIN[address] | [address] | | | | | [address], | [facility], [place] | | | | | [place] [address] | [address] | | | | | [phone] | [phone] | | | | | | | [...] + + + | Blood Pressure | 108/61 | 06/25/2018 2:30 PM | | | | | PST [...] + + + + | Weight | 66.7 kg (147 lb) | 06/25/2018 2:30 PM | | | | | PST | | + + + + + | Height | - | - | | + + + + + | Body Mass Index | 24.09 | 01/27/2018 2:04 PM | | | | | PDT | | + + + + + documented in this encounter Progress Notes Caitlin Satnana LPN - 06/25/2018 2:45 PM PSTCalled and talked with Kristyn and britney moe that she has chlamydia and needs to be treated actually with zithromax and sent that to [facility] in [place] and her boyfriend needs to be treated as well and can go to the [facility] er Dr. Schuster. hi Caty soto, - 06/25/2018 2:45 PM PSTTesting shows chlamydia. I know she had a moxicillin but please send in rx for zithromax 1 g taken once. We will repeat her labs clos er to delivery. 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 We will plan for treatment at 36 weeks unless she wants to continue the med s from here on out. A M PSTWhitaker, Caty Rivas DO - 06/25/2018 2:45 PM PSTFormatting of this note might be d ifferent from the original. Patient Active Problem List Diagnosis Date Noted , unspecified gestational age 0801/27/2018 Overview Note: (last update: 06/26/2018) Patient transferred at 28 wks from [place]. Had positive chlamydia at 30 weeks as well as HSV. See note. Treated. HSV -will need medciation at 36 weeks Chlamydia -will repeat test around 39 weeks. Anxiety 03/24/2017 Recent Results (from the past 168 hour(s)) CBC with Differential Collection Time: 06/22/18 10:47 Result Value Ref Range WBC 8.7 4.5 - 11.0 RBC Count 3.88 3.8 - 5.1 Hemoglobin 11.1 (L) 12.0 - 16.0 Hct 33.0 (L) 35 - 45 MCV 85.1 81 - 99 RDW 13.1 10.5 - 15.0 MCH 29 27 - 33 MCHC 34 30 - 36 Platelet Count 147 140 - 440 % Neutrophils 66.0 39 - 80 % Lymphocytes 27.0 24 - 44 Monocyte % 5.5 0 - 12 Eosinophils % 1.3 0 - 6 Basophils % 0.2 0 - 2 Hemoglobin A1C Collection Time: 06/22/18 10:47 Result Value Ref Range Hemoglobin A1c 4.7 Estimated Average Glucose 88 Patient was seen at a walk in clinic due to a sore on the genital area. She was treated fo r herpes with acyclovir and was also tested for chlamydia which was positive. She was treat ed for this with amoxicillin. She is concerned that the testing is not accurate. She had a negative chlamydia at the beginning of the . She has not had a new partner since then. We will repeat both tests and she should finish the antibiotics. If positive, we vicki l do 1 g of zithromax. WE will also need to retest around 38-39 weeks. If she is positive again on our testing, she needs to have her partner treated. He can be tested at [facility]. They are not currently having intercourse. The HSV issue she is worried about. She states she has not had a sore before. She needs to have treatment at 36 week through delivery. WE dis cussed that she could not delivery vaginally if she had a sore but otherwise if she is on me dication and there is no sore she can have a vaginal delivery. WE discussed the use of medi cation in discordant relationships. If her partner gets tested then we can give medication accordingly. For now, she needs to finish the meds she has. It is important to know if this is an initial infection or a recurrence so we will get the blood work again to see. If it is a new infection in the then that can have affects for the baby. Blood work col lected today. Tdocumented in this encounter Plan of Treatment Not on filedocumented as of this encounter Procedures + +--------+ + + + | Procedure Name | Priori | Date/Time | Associated Diagnosis | Comments | | | ty | | | | + +--------+ + + + | PATHOLOGY - EXTERNAL | | 07/21/2018 | | Results for this | | SCAN | | 12:00 AM | | procedure are in the | | | | PST | | results section. | + +--------+ + + + | LABS - EXTERNAL SCAN | | 07/21/2018 | | Results for this | | | | 12:00 AM | | procedure are in the | | | | PST | | results section. | + +--------+ + + + | C. TRACHOMATIS AND | Routin | 06/25/2018 | 30 weeks gestation | Results for this | | N. GONORRHOEAE, NAAT | e | 3:00 PM | of STD | procedure are in the | | ([facility]) | | PST | exposure | results section. | + +--------+ + + + documented in this encounter Results PATHOLOGY - EXTERNAL SCAN (07/21/2018 12:00 AM PST) + + + | Narrative | Performed At | + + + | Ordered by an | | | unspecified provider. | | + + + LABS - EXTERNAL SCAN (07/21/2018 12:00 AM PST) + + + | Narrative | Performed At | + + + | Ordered by an | | | unspecified provider. | | + + + Herpes Simplex Virus 1 and 2 Ab, IgG (06/25/2018 3:45 PM PST) + + + + + + | Component | Value | Ref Range | Performed | Pathologist | | | | | At | Signature | + + + + + + | HSV 1 Ab, | < 0.90Comment: | <0.90 index | REFERENCE | | | IgG, Type | Index | | [facility] | | | Specific | Interpretation | | [facility] | | | | ----- | | - [facility] | | | | | | [place] | | | | <0.90 | | | | | | Negative | | | | | | 0.90 - 1.09 | | | | | | Equivocal | | | | | | >1.09 | | | | | | Positive | | | | + + + + + + | HSV 2 Ab, | 4.85 (H)Comment: | <0.90 index | REFERENCE | | | IgG, Type | Index | | [facility] | | | Specific | Interpretation | | [facility]AGNOSTICS | | | | ----- | | - [facility] | | | | | | [place] | | | | <0.90 | | | | | | Negative | | | | | | 0.90 - 1.09 | | | | | | Equivocal | | | | | | >1.09 | | | | | | Positive This | | | | | | assay utilizes | | | | | | recombinant | | | | | | type-specific antigens | | | | | | to differentiate HSV-1 | | | | | | from HSV-2 infections. A | | | | | | positive result cannot | | | | | | distinguish between | | | | | | recent and past | | | | | | infection. If recent HSV | | | | | | infection is suspected | | | | | | but the results are | | | | | | negative or equivocal, | | | | | | the assay should be | | | | | | repeated in 4-6 weeks. | | | | | | The performance | | | | | | characteristics of the | | | | | | assay have not been | | | | | | established for | | | | | | pediatric populations, | | | | | | immunocompromised | | | | | | patients, or | | | | | | screening. @ Test | | | | | | Performed By: [facility] | | | | | | [facility] | | | | | | [address] | | | | | | Christian Ribeiro, Ph.D., | | | | | | Sales Store Checker | | | | | | [address] [facility] | | | | | | [place] [address] | | | | | | CLIA #[id number] | | | | + + + + + + + + | Specimen | + + | Blood | + + + + + | Narrative | Performed At | + + + | Performing Organization Information: Site ID: [id number] | REFERENCE LAB | | VIRUS 1 AND 2 (IGG), TYPE-SPECIFIC ANTIBODIES Name: | [facility] | | Address: , Director: | DIAGNOSTICS - | | | [facility] | | | [place] | + + + + + + + + | Performing | Address | City/State/Zipcode | Phone Number | | Organization | | | | + + + + + | REFERENCE LAB | [address] | [place], [place] | | | [facility] - | | [address] | | | [facility] [place] | | | | + + + + + C. trachomatis and N. gonorrhoeae, NAAT ([facility]) (06/25/2018 3:00 PM PST) + + + + + + | Component | Value | Ref Range | Performed | Pathologist | | | | | At | Signature | + + + + + + | Chlamydia | Detected (A)Comment: A | Not detected | REFERENCE | | | trachomatis | positive CT or NG | | [facility] | | | rRNA PCR | Nucleic Acid | | DIAGNOSTICS | | | | Amplification Test | | - [facility] | | | | (NAAT) resultshould be | | [facility] | | | | interpreted in | | | | | | conjunction with other | | | | | | laboratory and clinical | | | | | | data available to the | | | | | | clinician. If clinically | | | | | | indicated, further | | | | | | testing can be performed | | | | | | on the same sample | | | | | | using an alternate | | | | | | molecular target. To | | | | | | order alternate target | | | | | | test use [id number] (C. | | | | | | trachomatis) or [id number] | | | | | | (N. gonorrhoeae). | | | | + + + + + + | Neisseria | Not detectedComment: | Not detected | REFERENCE | | | gonorrhoeae | This test was performed | | [facility] | | | rRNA PCR | using the [facility] | | DIAGNOSTICS | | | | COMBO2(R) Assay | | - GADSDEN | | | | (GEN-PROBE(R)). The | | [facility] | | | | analytical performance | | | | | | characteristics of this | | | | | | assay, when used to test | | | | | | SurePath(R) specimens | | | | | | have been determined by | | | | | | [facility]. @ | | | | | | Test Performed By: | | | | | | [facility] | | | | | | [facility] | | | | | | Aimee Gonzales M.D., | | | | | | Ph.D., Laboratory | | | | | | Director [id number] | | | | | | [facility] | | | | | | [place] [address] | | | | | | [place] #[id number] | | | | + + + + + + + + | Specimen | + + | Urine - Urine | | specimen (specimen) | + + + + + | Narrative | Performed At | + + + | Performing Organization Information: Site ID: [email or web address]/ | REFERENCE LAB | | N.GONORRHOEAE RNA, TMA, [facility]ITAL Name: Address: , | [facility] | | Director: | DIAGNOSTICS - | | | [facility] | | | [place] | + + + + + + + + | Performing | Address | City/State/Zipcode | Phone Number | | Organization | | | | + + + + + | REFERENCE LAB | [address] [facility] [address] | [place], [place] | | | [facility] - | | [address] | | | [facility] [place] | | | | + + + + + documented in this encounter Visit Diagnoses + + | Diagnosis | + + | 30 weeks gestation of - Primary state, incidental | + + | STD exposure | + + | Normal in multigravida in third trimester | + + | , unspecified gestational age | + + documented in this encounter"
--- OUTSIDE RECORDS SUMMARY | ~2019-11-19 | XMS | Encounter Summary ---
Demographics + + + | Address | [address] | | | [place] [address] | + + + | Home Phone | | + + + | Preferred Language | Unknown | + + + | Marital Status | Single | + + + | Latter Day Affiliation | 1013 | + + + | Race | Unknown | + + + | Ethnic Group | Unknown | + + + Author + + + | Author | [facility] | | | and [place] | + + + | Organization | [facility] | | | and [place] | + + + | Address | Unknown | + + + | Phone | Unavailable | + + + Support + + + + + | Name | Relationship | Address | Phone | + + + + + | Mark Chatterjee | ECON | [place] [address] | | | | | Unknown | | + + + + + | Jean Claude Chatterjee | ECON | Unknown | | + + + + + Care Team Providers + +------+ + | Care Powder Coater Name | Role | Phone | + +------+ + | Leroy Dougherty NP | PCP | | + +------+ + Encounter Details +--------+ + + + + | Date | Type | Department | Care Team | Description | +--------+ + + + + | 06/19/ | Hospital | [facility] | Cheryl Sebastian, | | | 2019 | Encounter | [facility] | [facility] [address] [facility] | | | | | LABORATORY [address] | [place] | | | | | [address] [place] | [id number] | | | | | [address] | | | | | | [phone] | | | +--------+ + + + [...] at Time of Discharge + + + +---------+--------+ + | Medication | Sig | Dispensed | Refills | Start | End Date | | | | | | Date | | + + + +---------+--------+ + | | Take 2 tablets by | | 0 | | | | multivitamin-fish | mouth Daily. | | | | 9 | | oil ([facility] ) | | | | | | | 0.4-113.5 mg | | | | | | | chewable gummy | | | | | | + + + +---------+--------+ + documented as of this encounter Plan of Treatment Not on filedocumented as of this encounter Visit Diagnoses Not on filedocumented in this encounter"
--- OUTSIDE RECORDS SUMMARY | ~2019-11-19 | XMS | Encounter Summary ---
Demographics + + + | Address | [address] | | | [place] [address] | + + + | Home Phone | | + + + | Preferred Language | Unknown | + + + | Marital Status | Single | + + + | Worship Affiliation | 1013 | + + + [...] Mark Chatterjee | ECON | [place] [address] | | | | | Unknown | | + + + + + | Jean Claude Chatterjee | ECON | Unknown | | + + + + + Care Team Providers + +------+ + | Care Under Cutting Machine Operator Name | Role | Phone | [...] | | | DR [address]NA GARCIA, | [facility], [place] | | | | | [place] [address] | [address] | | | | | [phone] | [phone] | | | | | | | [...] Problems: Patient transferred at 28 wks from [place]. Had positive chlamydia at 30 weeks as [...]
--- OUTSIDE RECORDS SUMMARY | ~2019-11-19 | XMS | Clinical Summary ---
Demographics + + + | Address | [address] | | | [place] [address] | + + + | Home Phone | | + + + | Preferred Language | Unknown | + + + | Marital Status | Single | + + + | Zoroastrian Affiliation | 1013 | + + + | Race | Unknown | + + + | Ethnic Group | Unknown | + + + Author + + + | Author | [facility] | | | and [place] | + + + | Organization | [facility] | | | and [place] | + + + | Address | Unknown | + + + | Phone | Unavailable | + + + Support + + + + + | Name | Relationship | Address | Phone | + + + + + | Mark Chatterjee | ECON | [place] [address] | | | | | Unknown | | + + + + + | Jean Claude Chatterjee | ECON | Unknown | | + + + + + Care Team Providers + +------+ + | Care Copyholder Name | Role | Phone | + [...] transferred at 28 | | wks from [place].Had positive chlamydia at 30 weeks as well as | | HSV. See note. Treated. HSV -will need medciation at 36 | | weeksChlamydia -will repeat test around 39 weeks. | | RH Rh Positive 02/14/2018 | | | |Rhogam n/a | |LINDSEY/NIPT | |Flu | |Tdap declined | | | |Problems: | | | |Patient transferred at 28 wks from [place]. | |Had positive chlamydia at 30 weeks [...] | [employer] | MODA | [id number] | 06/19/19 | [phone] | | Medica | | MEDICAID HMO | HEALTH | | 19-Pre | 1 | | id | | | MDCD | | sent | | | | | | [place] | | | | | | + +--------+ +--------+ +---------+--------+ | [employer] | [employer] | [id number] | 07/20/19 | [phone] | | Medica [...] | | | 9 (Home) | [place] [address] | + +--------+ +--------+ + + | Kristyn Cai | Person | Self | [birth year] | [address] | | Primitivo | al/Fam | | 2000 | [phone] | [address] [place], | | | sary | | | 9 (Home) | [place] [address] | + +--------+ +--------+ + + | Kristyn Cai | Third | Self | [birth year] | [address] | | Primitivo | Democrat | | 2000 | [phone] | [address] [place], | | | Liabil | | | 9 (Home) | [place] [address] | | | ity | | | | | + +--------+ +--------+ + + Advance Directives + + + + + | Type | Date Recorded | Patient | Explanation | | | | Commercial Finance Analyst | | + + + + + | Power of | | | | | Contracts Paralegal | | | | + + + [...]
--- OUTSIDE RECORDS SUMMARY | ~2019-11-19 | XMS | Encounter Summary ---
Demographics + + + | Address | [address] | | | [place] [address] | + + + | Home Phone | | + + + | Preferred Language | Unknown | + + + | Marital Status | Single | + + + | Mandaeism Affiliation | 1013 | + + + | Race | Unknown | + + + | Ethnic Group | Unknown | + + + Author + + + | Author | [facility] | | | and [place] | + + + | Organization | [facility] | | | and [place] | + + + | Address | Unknown | + + + | Phone | Unavailable | + + + Support + + + + + | Name | Relationship | Address | Phone | + + + + + | Mark Chatterjee | ECON | [place] [address] | | | | | Unknown | | + + + + + | Jean Claude Chatterjee | ECON | Unknown | | + + + + + Care Team Providers + +------+ + | Care Quality Control Projectionist Name | Role | Phone | + +------+ + | Leroy Dougherty NP | PCP | | + +------+ + Reason for Visit + + + | Reason | Comments | + + + | Pelvic Pain | | + + + Encounter Details +--------+ + + + + | Date | Type | Department | Care Team | Description | +--------+ + + + + | 03/26/ | Emergency | [facility] | Luisito Siegel | Inguinal | | 2019 | | [facility] | DO [address] | lymphadenopathy | | | | CENTER [address] | [address] | (Primary Dx) | | | | DR [place], [place] | [place] [address] | | | | | [address] | [phone] | | | | | [phone] | | | +--------+ + + + [...] + + + documented in this encounter Discharge Instructions Luisito Shetty DO - 03/26/2019Follow up with your primary provider. AttachmentsThe following attachments cannot be sent through Care Everywhere.Lymphadenopathy (Djiboutian)documented in this encounter Plan of Treatment + +------+--------+ + + | Name | Type | Priori | Associated Diagnoses | Date/Time | | | | ty | | | + +------+--------+ + + | ED INFORMATION | RED | Routin | | 03/26/2019 4:00 PM | | EXCHANGE | | e | | PDT | + +------+--------+ + + documented as of this encounter Procedures + +--------+ + + + | Procedure Name | Priori | Date/Time | Associated Diagnosis | Comments | | | ty | | | | + +--------+ + + + | US GROIN BILATERAL | STAT | 03/26/2019 | | Results for this | | | | 4:53 PM | | procedure are in the | | | | PDT | | results section. | + +--------+ + + + | ED INFORMATION | Routin | 03/26/2019 | | | | EXCHANGE | e | 4:00 PM | | | | | | PDT | | | + +--------+ + + + +---+--------+ | | | | | Proced | | | ure | | | Note - | | | Dave, | | | Lab In | | | | | | Hlseve | | | n - | | | | | | 2018 | | | 4:01 | | | PM PDT | | | | | | Format | | | ting | | | of | | | this | | | note | | | might | | | be | | | differ | | | ent | | | from | | | the | | | origin | | | al.COL | | | LECTIV | | | E?NOTI | | | FICATI | | | ON? | | | | | | 9 | | | 15:59? | | | DECKER | | | DWIGHT | | | , | | | KRISTYN | | | S?MRN: | | | | | | [id number] | | | [id number] | | | riteri | | | a Met | | | Has | | | Care | | | Guidel | | | inesSe | | | curity | | | and | | | Safety | | | No | | | recent | | | | | | Securi | | | ty | | | Events | | | | | | curren | | | tly on | | | | | | fileED | | | Care | | | Guidel | | | inesTh | | | ere | | | are | | | curren | | | tly no | | | ED | | | Care | | | Guidel | | | laury | | | for | | | this | | | patien | | | t. | | | Please | | | check | | | your | | | facili | | | ty's | | | medica | | | l | | | record | | | s | | | system | | | .Care | | | Histor | | | yMedic | | | al/Estrella | | | [email or web address] | | | /26/18 | | | 12:00 | | | AM | | | [facility] | [facility] | | | al | | | [facility] | | | SPOKE | | | WITH | | | PATIEN | | | T | | | ABOUT | | | ED | | | UTILIZ | | | ATION. | | | CHW | | | | | | DISCUS | | | SED | | | THE | | | IMPORT | | | ANCE | | | OF | | | FOLLOW | | | UP | | | CARE | | | WITH | | | OBGYN | | | DR | | | ROCHA. | | | CHW | | | DISCUS | | | SED | | | REFERR | | | AL FOR | | | | | | UMATIL | | | [place] | | | [place] | | | | | | FAMILY | | | | | | PARTNE | | | RSHIP | | | PROGRA | | | M | | | WHICH | | | HELPS | | | WITH | | | FIRST | | | TIME | | | MOMS/P | | | REGNAN | | | CY. | | | PATIEN | | | T | | | DECLIN | | | ED THE | | | | | | REFERR | | | AL. | | | PATIEN | | | T | | | STATED | | | SHE | | | WILL | | | FOLLOW | | | UP | | | WITH | | | HER | | | OBGYN | | | AND | | | WILL | | | SEEK | | | NON | | | EMERGE | | | NT | | | MEDICA | | | L | | | CONCER | | | NS | | | THROUG | | | H THE | | | WALK | | | IN | | | CLINIC | | | .7/16/ | | | 18 | | | 12:00 | | | AM | | | [facility] | | [facility] | | | al | | | Patien | | | t is | | | curren | | | tly | | | establ | | | ished | | | with | | | St | | | [facility] | | | y | | | Clinic | | | . If | | | patien | | | t is | | | seen | | | in the | | | ED | | | during | | | | | | busine | | | ss | | | hours. | | | | | | Please | | | | | | contac | | | t [facility] | | | at St | | | | | | [facility] | | | y | | | Clinic | | | at | | | Ext | | | [phone] | | | 04.Car | | | e | | | Recomm | | | endati | | | on:Thi | | | s | | | patien | | | t has | | | had 5 | | | or | | | more | | | Emerge | | | ncy | | | Depart | | | ment | | | visits | | | in | | | the | | | last | | | 12 | | | months | | | .? | | | Patien | | | t | | | requir | | | es | | | educat | | | ion on | | | the | | | scope | | | and | | | purpos | | | e of | | | the ED | | | as an | | | acute | | | care | | | provid | | | er not | | | a | | | Primar | | | y Care | | | | | | Provid | | | er and | | | | | | should | | | not | | | be | | | utiliz | | | ed for | | | | | | chroni | | | c | | | condit | | | ions.? | | | If | | | patien | | | t | | | return | | | s to | | | ED | | | please | | | | | | contac | | | t | | | Commun | | | ity | | | Health | | | | | | Worker | | | , | | | [place] | | | at | | | [phone] | | | [phone] | | | .These | | | are | | | guidel | | | laury | | | and | | | the | | | provid | | | er | | | should | | | | | | exerci | | | se | | | clinic | | | al | | | judgme | | | nt | | | when | | | provid | | | ing | | | care.6 | | | /25/18 | | | 12:00 | | | AM | | | [facility] | [facility] | | | alCare | | | | | | Recomm | | | endati | | | on:?Pl | | | ease | | | refer | | | patien | | | t to | | | [facility] | | | l | | | [facility] | | | for | | | non | | | emerge | | | nt | | | visits | | | and | | | follow | | | | | | care.P | | | atient | | | is | | | establ | | | ished | | | with | | | [facility] | | | l | | | Clinic | | | .This | | | patien | | | t has | | | had 5 | | | or | | | more | | | Emerge | | | ncy | | | Depart | | | ment | | | visits | | | in | | | the | | | last | | | 12 | | | months | | | .? | | | Patien | | | t | | | requir | | | es | | | educat | | | ion on | | | the | | | scope | | | and | | | purpos | | | e of | | | the ED | | | as an | | | acute | | | care | | | provid | | | er not | | | a | | | Primar | | | y Care | | | | | | Provid | | | er and | | | | | | should | | | not | | | be | | | utiliz | | | ed for | | | | | | chroni | | | c | | | condit | | | ions.? | | | If | | | patien | | | t | | | return | | | s to | | | ED | | | please | | | | | | contac | | | t | | | Commun | | | ity | | | Health | | | | | | Worker | | | , | | | [place] | | | at | | | [phone] | | | [phone] | | | .These | | | are | | | guidel | | | laury | | | and | | | the | | | provid | | | er | | | should | | | | | | exerci | | | se | | | clinic | | | al | | | judgme | | | nt | | | when | | | provid | | | ing | | | care.P | | | rescri | | | ption | | | Drug | | | Report | | | (12 | | | Mo.)Rx | | | | | | Detail | | | sFill | | | Date | | | Drug | | | Descri | | | ption | | | Qty. | | | Prescr | | | iber | | | CS MED | | | | | | 2019-0 | | | 8-30 | | | CLONAZ | | | EPAM | | | 0.5 MG | | | | | | TABLET | | | 15 | | | BROOKLYN | | | L | | | HELIO | | | 4 0 | | | Rx | | | [place] | | | yMetri | | | c | | | Count | | | CS | | | II-V | | | Rx 1 | | | CS-II | | | Rx 0 | | | Quanti | | | ty | | | Dispen | | | sed 15 | | | | | | Unique | | | | | | Prescr | | | ibers | | | 1 | | | Unique | | | | | | Pharma | | | cies 1 | | | | | | Benzos | | | 1 | | | Opioid | | | s 0 | | | Long | | | Acting | | | | | | Opioid | | | s 0 | | | E.D. | | | Visit | | | Count | | | (12 | | | mo.)Fa | | | cility | | | | | | Visits | | | | | | [facility] | | | [facility] | | | al 1 | | | [facility] | [facility] | | | | | | [facility] | | | and 1 | | | Total | | | 2 | | | Note: | | | Visits | | | | | | indica | | | te | | | total | | | known | | | visits | | | . | | | Recent | | | | | | Emerge | | | ncy | | | Depart | | | ment | | | Visit | | | [facility] | | | yDate | | | Facili | | | ty | | | City | | | State | | | Type | | | Diagno | | | ses or | | | Chief | | | | | | Compla | | | int | | | Oct | | | 11, | | | 2019 | | | [place] | | | [facility] [place] | [place] | | [place] | | | Emerge | | | ncy | | | | | | Pelvic | | | Pain | | | Apr | | | 16, | | | 2019 | | | [facility] | | | | [facility] | | | and | | | Fruit. | | | ID | | | Emerge | | | ncy | | | panic | | | | | | attack | | | , | | | dehydr | | | ation | | | | | | Recent | | | | | | Inpati | | | ent | | | Visit | | | [facility] | | | yDate | | | Facili | | | ty | | | City | | | State | | | Type | | | Diagno | | | ses or | | | Chief | | | | | | Compla | | | int | | | Feb | | | 22, | | | 2019 | | | [place] | | | [place] | | | [place] | | | [place] | | | [place] | | | Obstet | | | rics | | | | | | Contra | | | ctions | | | Feb | | | 17, | | | 2019 | | | [facility] | | | [facility] | | | [place] | | | [place] | | | Observ | | | ation | | | | | | Preter | | | m | | | labor | | | withou | | | t | | | delive | | | ry, | | | unspec | | | ified | | | trimes | | | ter | | | | | | Unspec | | | ified | | | abdomi | | | nal | | | pain | | | 36 | | | weeks | | | gestat | | | ion of | | | | | | pregna | | | ncy | | | False | | | labor | | | | | | before | | | 37 | | | comple | | | milka | | | weeks | | | of | | | gestat | | | ion, | | | third | | | trimes | | | ter | | | Care | | | TeamPr | | | ovider | | | | | | Specia | | | lty | | | Phone | | | Fax | | | Servic | | | e | | | Dates | | | [facility]UN[facility]K | | | ER, | | | LEROY | | | R, TURF GROWER | | | Nurse | | | | | | Practi | | | tioner | | | : | | | Family | | | Moshe | | | 16, | | | 2018 - | | | | | | Curren | | | t | | | PENDLE | | | TON, | | | PENNY, | | | N.D. | | | Naturo | | | path | | | (206) | | | [phone] | | | 31 | | | (425) | | | [phone] | | | 48 Sep | | | 26, | | | 2018 - | | | | | | Curren | | | t JEFFRY | | | HAYDEE | | | Primar | | | y Care | | | | | | Curren | | | t CHITO | | | | | | WINNER | | | | | | Primar | | | y Care | | | Pantera | | | 6, | | | 2018 | | | DOCTOR | | | MISC | | | Primar | | | y Care | | | | | | Curren | | | t | | | [facility] | | | [facility] | [facility] | | | [facility] | | | | | | Primar | | | y Care | | | | | | Curren | | | t | | | [facility] | | | [facility] | | | [facility] | [facility] | | | | | | [facility] | | | , MD | | | Primar | | | y Care | | | (541) | | | | | | [phone] | | | 17 | | | (541) | | | [phone] | | | 70 | | | Curren | | | t | | | Collec | | | tive | | | Portal | | | This | | | patien | | | t has | | | regist | | | ered | | | at the | | | | | | [place] | | | [facility] | | | | | [facility] | | | al | | | Emerge | | | ncy | | | Depart | | | ment | | | For | | | more | | | inform | | | ation | | | visit: | | | | | | https: | | | //secu | | | re.col | | | lectiv | | | emedic | | | al.com | | | /notif | | | y/545d | | | 4778-9 | | | 46a-49 | | | [phone] | | | [phone] | | | [id number] | | | 6a | | | PLEASE | | | NOTE: | | | 1. | | | Any | | | care | | | recomm | | | endati | | | ons | | | and | | | other | | | clinic | | | al | | | inform | | | ation | | | are | | | provid | | | ed as | | | guidel | | | laury | | | or for | | | | | | histor | | | ical | | | purpos | | | es | | | only, | | | and | | | provid | | | ers | | | should | | | | | | exerci | | | se | | | their | | | own | | | clinic | | | al | | | judgme | | | nt | | | when | | | provid | | | ing | | | care. | | | 2. | | | You | | | may | | | only | | | use | | | this | | | inform | | | ation | | | for | | | purpos | | | es of | | | treatm | | | ent, | | | paymen | | | t or | | | health | | | care | | | operat | | | ions | | | activi | | | ties, | | | and | | | subjec | | | t to | | | the | | | limita | | | tions | | | of | | | applic | | | able | | | Collec | | | tive | | | Polici | | | es. | | | 3. | | | You | | | should | | | | | | consul | | | t | | | direct | | | ly | | | with | | | the | | | organi | | | zation | | | that | | | provid | | | ed a | | | care | | | guidel | | | ine or | | | other | | | | | | clinic | | | al | | | histor | | | y with | | | any | | | questi | | | ons | | | about | | | additi | | | onal | | | inform | | | ation | | | or | | | accura | | | cy or | | | comple | | | teness | | | of | | | inform | | | ation | | | provid | | | ed.? | | | 2019 | | | Collec | | | tive | | | Medica | | | l | | | Techn[employer] | | | logies | | | , Inc. | | | - | | | [email or web address] | | | llecti | | | vemedi | | | [email or web address] | | | m | +---+--------+ documented in this encounter Results US Groin Bilateral (03/26/2019 4:53 PM PDT) + + | Specimen | + + | | + + + + + | Impressions | Performed At | + + + | Reactive groin lymph nodes. Dictated by: Conrad Calix | [facility] | | | | + + + + + + | Narrative | Performed At | + + + | EXAMINATION: US GROIN BILATERAL HISTORY: inguinal swelling and | [facility] | | pain COMPARISON STUDY: None FINDINGS: Ultrasound evaluation | | | of the right inguinal region demonstrates no evidence of hernia. No | | | pathologically enlarged lymph nodes. Several lymph nodes are noted | | | with fatty hilum and mild hyperemia. These nodes measure 0.9 x 1.0 x | | | 0.6 cm, 1.7 x 0.5 x 0.7 cm and 1.4 x 1.2 x 0.5 cm. | | + + + + + | Procedure Note | + + | Dave, Rad Results In - 03/26/2019 6:57 PM PDT EXAMINATION:US GROIN | | BILATERALHISTORY:inguinal swelling and painCOMPARISON STUDY:NoneFINDINGS:Ultrasound | | evaluation of the right inguinal region demonstrates no evidence of hernia. No | | pathologically enlarged lymph nodes. Several lymph nodes are noted with fatty hilum and | | mild hyperemia. These nodes measure 0.9 x 1.0 x 0.6 cm, 1.7 x 0.5 x 0.7 cm and 1.4 x | | 1.2 x 0.5 cm.IMPRESSION: Reactive groin lymph nodes.Dictated by: Conrad | | Nubiaam | |None | | | |FINDINGS: | |Ultrasound evaluation of the right inguinal region demonstrates no evidence of hernia. No pathologically enlarged lymph nodes. Several lymph nodes are noted with fatty hilum and mil d hyperemia. These nodes | |measure 0.9 x 1.0 x 0.6 cm, 1.7 x 0.5 x 0.7 | |cm and 1.4 x 1.2 x 0.5 cm. | | | |IMPRESSION: | |Reactive groin lymph nodes. | | | |Dictated by: Conrad Calix | | | | | + + + +---------+ + + | Performing | Address | City/State/Zipcode | Phone Number | | Organization | | | | + +---------+ + + | [facility] | | | | + +---------+ + + documented in this encounter Visit Diagnoses + + | Diagnosis | + + | Inguinal lymphadenopathy - Primary Enlargement of lymph nodes | + + documented in this encounter
--- OUTSIDE RECORDS SUMMARY | ~2019-11-19 | XMS | Encounter Summary ---
Demographics + + + | Address | [address] | | | [place] [address] | + + + | Home Phone | | + + + | Preferred Language | Unknown | + + + | Marital Status | Single | + + + | Christianity Affiliation | 1013 | + + + [...] + | Mark Chatterjee | ECON | [place] [address] | | | | | Unknown | | + + + + + | Jean Claude Chatterjee | ECON | Unknown | | + + + + + Care Team Providers + +------+ + | Care Didactic Program In Dietetics Director Name | Role | Phone | + +------+ + | Leroy Dougherty NP | PCP | | + +------+ + Encounter Details +--------+ + + + + | Date | Type | Department | Care Team | Description | +--------+ + + + + | 06/22/ | Orders Only | [facility] | Caitlin Santana, | 28 weeks gestation | | 2019 | | [facility] | [facility] | of | | | | CLINIC [address] | | (Primary Dx) | | | | DR [place], | | | | | | [place] [address] | | | | | | [phone] | | | +--------+ + + + [...] | + +--------+ + + + | CBC WITH | Routin | 06/22/2018 | | Results for this | | DIFFERENTIAL | e | 10:47 AM | | procedure are in the | | | | PST | | results section. | + +--------+ + + + | HEMOGLOBIN A1C | Routin | 06/22/2018 | | Results for this | | | e | 10:47 AM | | procedure are in the | | | | PST | | results section. | + +--------+ + + + documented in this encounter Results Hemoglobin A1C (06/22/2018 10:47 AM PST) + + + + + + | Component | Value | Ref Range | Performed | Pathologist | | | | | At | Signature | + + + + + + | Hemoglobin | 4.7 | | REFERENCE | | | A1c | | | LAB | | | | | | [facility] | | + + + + + + | Estimated | 88Comment: | | REFERENCE | | | Average | Reference Range for | | LAB | | | Glucose | HEMOGLOBIN A1c: | | [facility] | | | | Non-Diabetic | | | | | | <5.7% | | | | | | Increased Risk for | | | | | | Diabetes 5.7% - 6.4% | | | | | | Diagnostic for | | | | | | Diabetes >6.4 | | | | | | Diabetic Goal | | | | | | <7.0%These | | | | | | values are for | | | | | | non- individuals | | | | | | according to the | | | | | | [place] [employer] | | | | | | Association. 'Diabetes | | | | | | Care. | | | | | | 2009;33(suppl):S15-S61.' | | | | | | Hb A1C results may be | | | | | | falsely decreased in the | | | | | | presence of conditions | | | | | | that shorten red cell | | | | | | survival such as the | | | | | | presence of unstable | | | | | | hemoglobins or hemolytic | | | | | | anemia. Results may be | | | | | | falsely elevated in the | | | | | | presence of Iron | | | | | | deficiency anemia. | | | | + + + + + + + + | Specimen | + + | | + + + + + | Narrative | Performed At | + + + | Testing Performed at: [facility] [place] [facility] CLIA: [id number] - [address] | REFERENCE LAB | | [place] [address] | [facility] | + + + + + + + + | Performing | Address | City/State/Zipcode | Phone Number | | Organization | | | | + + + + + | REFERENCE LAB | [address] | [place] | [phone] | | [facility] | | [address] | | + + + + + | REFERENCE LAB | [address] | [place] | [phone] | | [facility] | | [address] | | + + + + + CBC with Differential (06/22/2018 10:47 AM PST) + + + + + + | Component | Value | Ref Range | Performed | Pathologist | | | | | At | Signature | + + + + + + | WBC | 8.7 | 4.5 - 11.0 | REFERENCE | | | | | | LAB | | | | | | [facility] | | + + + + + + | RBC Count | 3.88 | 3.8 - 5.1 | REFERENCE | | | | | | LAB | | | | | | [facility] | | + + + + + + | Hemoglobin | 11.1 (L) | 12.0 - 16.0 | REFERENCE | | | | | | LAB | | | | | | [facility] | | + + + + + + | Hct | 33.0 (L) | 35 - 45 | REFERENCE | | | | | | LAB | | | | | | [facility] | | + + + + + + | MCV | 85.1 | 81 - 99 | REFERENCE | | | | | | LAB | | | | | | [facility] | | + + + + + + | RDW | 13.1 | 10.5 - 15.0 | REFERENCE | | | | | | LAB | | | | | | [facility] | | + + + + + + | MCH | 29 | 27 - 33 | REFERENCE | | | | | | LAB | | | | | | [facility] | | + + + + + + | MCHC | 34 | 30 - 36 | REFERENCE | | | | | | LAB | | | | | | [facility] | | + + + + + + | Platelet | 147 | 140 - 440 | REFERENCE | | | Count | | | LAB | | | | | | [facility] | | + + + + + + | % | 66.0 | 39 - 80 | REFERENCE | | | Neutrophils | | | LAB | | | | | | [facility] | | + + + + + + | % | 27.0 | 24 - 44 | REFERENCE | | | Lymphocytes | | | LAB | | | | | | [facility] | | + + + + + + | Monocyte % | 5.5 | 0 - 12 | REFERENCE | | | | | | LAB | | | | | | [facility] | | + + + + + + | Eosinophils | 1.3 | 0 - 6 | REFERENCE | | | % | | | LAB | | | | | | [facility] | | + + + + + + | Basophils % | 0.2 | 0 - 2 | REFERENCE | | | | | | LAB | | | | | | [facility] | | + + + + + + + + | Specimen | + + | | + + + + + | Narrative | Performed At | + + + | Testing Performed at: [facility] CLIA: [id number] - [address] | REFERENCE LAB | | [place] [address] | [facility] | + + + + + + + + | Performing | Address | City/State/Zipcode | Phone Number | | Organization | | | | + + + + + | REFERENCE LAB | [address] | [place], [place] | [phone] | | [facility] | | [address] | | + + + + + | REFERENCE LAB | [address] | [place], [place] | [phone] | | [facility] | | [address] | | + + + + + documented in this encounter Visit Diagnoses + + | Diagnosis | + + | 28 weeks gestation of - Primary state, incidental | + + documented in this encounter"
--- OUTSIDE RECORDS SUMMARY | ~2019-11-19 | XMS | Encounter Summary ---
Demographics + + + | Address | [address] | | | [place] [address] | + + + | Home Phone | | + + + | Preferred Language | Unknown | + + + | Marital Status | Single | + + + | Rastafarian Affiliation | 1013 | + + + [...] Mark Chatterjee | ECON | [place] [address] | | | | | Unknown | | + + + + + | Jean Claude Chatterjee | ECON | Unknown | | + + + + + Care Team Providers + +------+ + | Care Wool Scourer Name | Role | Phone | + +------+ + | Leroy Dougherty NP | PCP | | + +------+ + Reason for Visit + + + | Reason | Comments | + + + | Lab Results | | + + + Encounter Details +--------+ + + + + | Date | Type | Department | Care Team | Description | +--------+ + + + + | 06/29/ | Telephone | [facility] | Caty Schuster | Lab Results | | 2019 | | [facility] | [address] | | | | | [address] | [address] | | | | | [address], | [facility], [place] | | | | | [place] [address] | [address] | | | | | [phone] | [phone] | | | | | | | [...]
--- OUTSIDE RECORDS SUMMARY | ~2019-11-19 | XMS | Encounter Summary ---
Demographics + + + | Address | [address] | | | [place] [address] | + + + | Home Phone | | + + + | Preferred Language | Unknown | + + + | Marital Status | Single | + + + | Taoism Affiliation | 1013 | + + + | Race | Unknown | + + + | Ethnic Group | Unknown | + + + Author + + + | Author | [facility] | | | and [place] | + + + | Organization | [facility] | | | and [place] | + + + | Address | Unknown | + + + | Phone | Unavailable | + + + Support + + + + + | Name | Relationship | Address | Phone | + + + + + | Mark Chatterjee | ECON | [place] [address] | | | | | Unknown | | + + + + + | Jean Claude Chatterjee | ECON | Unknown | | + + + + + Care Team Providers + +------+ + | Care Clinical Case Manager Name | Role | Phone | + +------+ + | Leroy Dougherty NP | PCP | | + +------+ + Reason for Visit + + + | Reason | Comments | + + + | Appointment Question | | + + + Encounter Details +--------+ + + + + | Date | Type | Department | Care Team | Description | +--------+ + + + + | 05/27/ | Telephone | [facility] [facility] | Caty Schuster | Appointment Question | | 2018 | | [facility] | [address] | | | | | [address] | [address] | | | | | [address], | [place] | | | | | [place] [address] | [address] | | | | | [phone] | [phone] | | | | | | | [...]
--- OUTSIDE RECORDS SUMMARY | ~2019-11-19 | XMS | Encounter Summary ---
Demographics + + + | Address | [address] | | | [place] [address] | + + + | Home Phone [...] + + + | Author | [facility] | | | and [place] | + + + | Organization | [facility] | | | and [place] | + + + | Address | Unknown | + + + | Phone | Unavailable | + + + Support + + + + + | Name | Relationship | Address | Phone | + + + + + | Mark Chatterjee | ECON | [place] [address] | | | | | Unknown | | + + + + + | Jean Claude Chatterjee | ECON | Unknown | | + + + + + Care Team Providers + +------+ + | Care Bore Mill Operator For Plastic Name | Role | Phone | + [...] ideation | | 2018 | Visit | [facility] | Jovanni RN [facility] DELIVERY | (Primary Dx); | | | | [facility] [address] | | Depression, | | | | [address] [facility], | | unspecified | | | | [place] [address] | | depression type; | | | | [phone] | | Anxiety | +--------+---------+ + + [...] documented in this encounter Progress Notes Jane Mercado ARNP - 12/05/2017 8:30 AM PDTFormatting of this note might be differe nt from the original. Patient ID: Kristyn Longoria is a 17 y.o. year old female Chief Complaint: Chief Complaint Patient presents with Anxiety Assessment and Plan: 1. Suicidal ideation 2. Depression, unspecified depression type 3. Anxiety Called crisis team from [facility] due to patient expressing intermittent thoughts of suicide. Jun Toussaint LCSW/crisis counselor came to the clinic and met with the patient in my office. Patient has appointment to establish with [facility] in [facility] [place] next Friday. I reagan lg [facility] and was told patient could make an appointment or walk in to be cami luated for marijuana use/dependence. Patient was notified about this. Subjective: Patient presents today to establish care. Was previously seen at [facility] in [place], [place]. Last seen 11/19/17 for ER follow-up for suicidal ideation and start ed on Vistaril 25 mg tid prn and referred to behavioral health. She reports that she was ref erred to a counselor at [facility] in [place], [place]. She has not been to [facility] yet as she is waiting for her boyfriend to get back in town to go with her. Her boyfriend will be back in town next week. States she has an appointment with [facility] on 12/10/17. 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 She is requesting a referral to psychiatric [...] cutting at age 11. Previously seen at [facility]. 1. Depression and anxiety - states she has Vistaril and has used this twice and is not sure if this helped or not. Benítez s tried Paxil, prozac and clonazepam. States she [...]
--- OUTSIDE RECORDS SUMMARY | ~2019-11-19 | XMS | Encounter Summary ---
Demographics + + + | Address | [address] | | | [place] [address] | + + + | Home Phone | | + + + | Preferred Language | Unknown | + + + | Marital Status | Single | + + + | Evangelical Affiliation | 1013 | + + + | Race | Unknown | + + + | Ethnic Group | Unknown | + + + Author + + + | Author | [facility] | | | and [place] | + + + | Organization | [facility] | | | and [place] | + + + | Address | Unknown | + + + | Phone | Unavailable | + + + Support + + + + + | Name | Relationship | Address | Phone | + + + + + | Mark Chatterjee | ECON | [place] [address] | | | | | Unknown | | + + + + + | Jean Claude Chatterjee | ECON | Unknown | | + + + + + Care Team Providers + +------+ + | Care Food And Nutrition Professor Name | Role | Phone | + +------+ + | Leroy Dougherty NP | PCP | | + +------+ + Reason for Visit + + + | Reason | Comments | + + + | Care | 6 Weeks | + + + Encounter Details +--------+---------+ + + + | Date | Type | Department | Care Team | Description | +--------+---------+ + + + | 09/24/ | Office | [facility] | Caty Schuster | exam | | 2019 | Visit | [facility] | [address] | (Primary Dx); | | | | [address] | [address] | Anxiety; Depression, | | | | [address], | [place], [place] | unspecified | | | | [place] [address] | [address] | depression type | | | | [phone] | [phone] | | | | | | | | +--------+---------+ + + + Social History [...] + + + | Blood Pressure | 103/49 | 09/24/2018 5:36 PM | | | | | PDT | | + + + + + | Pulse | 80 | 09/24/2018 5:36 PM | | | | | PDT | | + + + + + | Temperature | - | - | | + + + + + | Respiratory Rate | 16 | 09/24/2018 5:36 PM | | | | | PDT | | + + + + + | Oxygen Saturation | - | - | | + + + + + | Inhaled Oxygen | - | - | | | Concentration | | | | + + + + + | Weight | 58.1 kg (128 lb) | 09/24/2018 5:36 PM | | | | | PDT | | + + + + + | Height | 166.4 cm (5' 5.5") | 09/24/2018 5:36 PM | | | | | PDT | | + + + + + | Body Mass Index | 20.98 | 09/24/2018 5:36 PM | | | | | PDT | | + + + + + documented in this encounter Progress Notes Caty Schuster DO - 09/24/2018 5:15 PM PDTFormatting of this note might be diffe rent from the original. Kristyn Longoria is a 18 y.o. here for a 6 wk visit. Patient is having issues with depression. No suicidal. She has been doing some hair changes and pierc ing. She is mostly worried about the anxiety. Her partner is threatening to have her go to psych hospital but she will not do it. She does not want to see counselor or psychiatrist. She does not want to be on meds for her life and has not had good success with any previou sly. She needs to go to the ER if she has thoughts about self harm or infanticide. Milk supply does not seem to be enough for the baby as she does not cry as much when she is at the grandparent's house. She is going to pump now to see how much she is producing. We discussed mother's milk tea and fenugreek. Delivery information: Type of delivery: Vaginal A female baby was born at 0128 on 08/08/2020 Birthweight was 3.5 kg (7 lb 11.5 oz) scores were 7 at one minute and 8 at five minutes. No Known Allergies Current Outpatient Medications: acyclovir (ZOVIRAX) 400 MG tablet, Take 1 tablet by mouth 2 times daily., Disp: 60 tab let, Rfl: 0 penicillin 500 mg tablet, , Disp: , Rfl: 0 OB History Para Term AB Living 2 1 1 1 1 SAB TAB Ectopic Molar Multiple Live Births 1 0 1 # Outcome Date GA Lbr William/2nd Weight Sex Delivery Anes PTL Lv 2 08/08/18 36w6d 06:38 3.5 kg (7 lb 11.5 oz) F Vag-Spont EPI TONY 1 SAB ROS: General: negative Breast: no issues but not a great milk supply. Gastrointestinal: negative -Urinary: negative Feels weird. Not really painful. -Glazier Supervisor: no - bleeding: none now Neurologic: negative Musculoskeletal: negative Psychiatric: positive for - anxiety and depression. Scores 21 on EPDS. PE : Vitals: 09/24/18 1736 BP: 103/49 Pulse: 80 Resp: 16 PainSc: 0 - No pain General: thin female. She appears in no apparent distress Psych: oriented to time, place and person. Patient with normal affect. Pelvic: performed EXTERNAL GENITALIA : normal, well-healed, without lesions or masses, VAGINA POST : normal, well-healed, physiologic discharge, without lesions, CERVIX : norm al, well-healed, without lesions, UTERUS : normal size, well involuted, firm, non- tender, ADNEXA : no masses palpable and nontender Assessment/Plan: 1. exam Patient is physically doing fine. She is having issues with anxiety and depression but ref uses to try any medication or see any mental health provider. She states she has dealt with it in the past and will do so now. 2. Anxiety Declines any referrals to mental health professionals or medication 3. Depression, unspecified depression type Declines any referrals to mental health professionasl or medication. We discussed that if s he is every suicidal or has thoughts of harming the baby she needs to go to the ER. She does not want anything for control. control option: none F/U 1 year Caty Schuster DO 09/24/18 documented in this encounter Plan of Treatment Not on filedocumented as of this encounter Visit Diagnoses + + | Diagnosis | + + | exam - Primary Routine follow-up | + + | Anxiety Anxiety state, unspecified | + + | Depression, unspecified depression type | + + documented in this encounter
--- OUTSIDE RECORDS SUMMARY | ~2019-11-19 | XMS | Encounter Summary ---
Demographics + + + | Address | [address] | | | [place] [address] | + + + | Home Phone | | + + + | Preferred Language | Unknown | + + + | Marital Status | Single | + + + | Denominational Affiliation | 1013 | + + + | Race | Unknown | + + + | Ethnic Group | Unknown | + + + Author + + + | Author | [facility] | | | and [place] | + + + | Organization | [facility] | | | and [place] | + + + | Address | Unknown | + + + | Phone | Unavailable | + + + Support + + + + + | Name | Relationship | Address | Phone | + + + + + | Mark Chatterjee | ECON | [place] [address] | | | | | Unknown | | + + + + + | Jean Claude Chatterjee | ECON | Unknown | | + + + + + Care Team Providers + +------+ + | Care Roughener Name | Role | Phone | + +------+ + | Leroy Dougherty NP | PCP | | + +------+ + Encounter Details +--------+ + + + + | Date | Type | Department | Care Team | Description | +--------+ + + + + | 06/19/ | Hospital | [facility] | Cheryl Sebastian, | | | 2019 | Encounter | [facility] | ENTRY LEVEL FINANCIAL ANALYST [address] [facility] | | | | | LABORAT[address] | [place] | | | | | [address] [place] | [id number] | | | | | [address] | | | | | | [phone] | | | +--------+ + + + [...]
--- OUTSIDE RECORDS SUMMARY | ~2019-11-19 | XMS | Encounter Summary ---
Demographics + + + | Address | [address] | | | [place] [address] | + + + | Home Phone | | + + + | Preferred Language | Unknown | + + + | Marital Status | Single | + + + | Jainism Affiliation | 1013 | + + + | Race | Unknown | + + + | Ethnic Group | Unknown | + + + Author + + + | Author | [facility] | | | and [place] | + + + | Organization | [facility] | | | and [place] | + + + | Address | Unknown | + + + | Phone | Unavailable | + + + Support + + + + + | Name | Relationship | Address | Phone | + + + + + | Mark Chatterjee | ECON | [place] [address] | | | | | Unknown | | + + + + + | Jean Claude Chatterjee | ECON | Unknown | | + + + + + Care Team Providers + +------+ + | Care Developer Support Engineer Name | Role | Phone | + +------+ + | Leroy Dougherty NP | PCP | | + +------+ + Encounter Details +--------+ + + + + | Date | Type | Department | Care Team | Description | +--------+ + + + + | 06/11/ | Abstract | [facility] | Caitlin Santana, | | | 2017 | | [facility] | STUDENT TRUCK DRIVER | | | | | CLINIC [address] | | | | | | [address], | | | | | | [place] [address] | | | | | | [phone] | | | +--------+ + + + [...]
--- OUTSIDE RECORDS SUMMARY | ~2019-11-19 | XMS | Encounter Summary ---
Demographics + + + | Address | [address] | | | [place] [address] | + + + | Home Phone | | + + + | Preferred Language | Unknown | + + + | Marital Status | Single | + + + | Hinduism Affiliation | 1013 | + + + | Race | Unknown | + + + | Ethnic Group | Unknown | + + + Author + + + | Author | [facility] | | | and [place] | + + + | Organization | [facility] | | | and [place] | + + + | Address | Unknown | + + + | Phone | Unavailable | + + + Support + + + + + | Name | Relationship | Address | Phone | + + + + + | Mark Chatterjee | ECON | [place] [address] | | | | | Unknown | | + + + + + | Jean Claude Chatterjee | ECON | Unknown | | + + + + + Care Team Providers + +------+ + | Care Coroner Transport Technician Name | Role | Phone | + +------+ + | Leroy Dougherty NP | PCP | | + +------+ + Reason for Visit + + + | Reason | Comments | + + + | Contractions | possible SROM | + + + Auth/Cert +--------+--------+ + + + + | [...] + + + + | 08/07/ | Hospital | [facility] | Caty Schuster | | | 2019 - | Encounter | [facility] | Evelyn, DO [address] | | | | | DEL[address] | [address] [place] | | | 08/10/ | | [place], [place] | [place] | | | 2019 | | [address] | [address] | | | | | [phone] | | | | | | | [...] + + + | Blood Pressure | 139/93 | 08/10/2018 12:08 PM | | | | | PST | | + + + + + | Pulse | 77 | 08/10/2018 12:08 PM | | | | | PST | | + + + + + | Temperature | 36.6 C (97.88 F) | 08/10/2018 8:31 AM | | | | | PST | | + + + + + | Respiratory Rate | 16 | 08/10/2018 8:31 AM | | | | | PST | | + + + + + | Oxygen Saturation | 96% | 08/10/2018 8:31 AM | | | | | PST | | + + + + + | Inhaled Oxygen | - | - | | | Concentration | | | | + + + + + | Weight | 75.3 kg (166 lb) | 08/07/2018 8:39 PM | | | | | PST | | + + + + + | Height | 166.4 cm (5' 5.51") | 08/07/2018 8:39 PM | | | | | PST | | + + + + + | Body Mass Index | 27.19 | 08/07/2018 8:39 PM | | | | | PST | | + + + + + documented in this encounter Discharge Summaries Jenna Brownlee MD - 08/10/2018 9:34 AM PST Discharge Summary Kristyn Longoria : 2000 Admission Date and Time: 08/07/2018 15:39 Discharge Date: 08/10/2018 Attending Clinician: Caty Schuster, * Primary Unit Reactor Operator: Leroy Dougherty NP Discharge Diagnoses: Principal Problem: labor in third trimester with delivery ... History Of Present Illness Kristyn is a 18 y.o. year old female at 36w6d weeks who was admitted for management o f PTL. Hospital Course Kristyn Longoria is a 18 y.o.-year-old, now female (Estimated Date of Delive ry: 08/30/18) who delivered by Vaginal, Spontaneous Delivery . At 08/08/2018 0128 ,Kristyn roca e a living female 3.5 kg (7 lb 11.5 oz) , . scores were 7 /8 at one and fiv e minutes respectively. The delivery physcian was Dr Schuster Her course was unremarkable except for late onset of mild elevations of BP. She has no headache nor visual disturbances. Patient had good return of her bowel and bladder f unction, was tolerating a regular diet and was ambulating and voiding well. Her vital signs were stable and afebrile. Nursing was going well. She was discharged home in stable condit ion. She was given written post operative instructions in regards to her activity level and limitations Discharge Medications Discharge Medications New Medications Details ferrous sulfate 325 mg tablet Take 1 tablet by mouth daily (with breakfast). Start: 08/11/2018 ibuprofen 800 MG tablet Take 1 tablet by mouth every 8 hours as needed for up to 14 days. aka: ADVIL,MOTRIN oxyCODONE 5 mg tablet Take 1 tablet by mouth every 4 hours as needed for up to 20 doses. aka: ROXICODONE Unchanged Medications Details acyclovir 400 MG tablet Take 1 tablet by mouth 2 times daily. aka: ZOVIRAX Condition on Discharge stable/good Vital Signs PRIOR TO DISCHARGE Temp: 36.6 C (97.88 F) BP: (!) 147/95 Pulse: 68 Resp: 16 SpO2: 96 % Her most recent hematocrit was Lab Results Component Value Date HCT 28.0 (L) 08/10/2018 Disposition home Diet regular diet Follow up Appointments -will go to clinic for BP check in one week and return for 6 wk pp check Follow-up Information Follow up In 6 weeks. Why: post visit Time spent on Discharge and Coordination of post-hospital care: Less than 30 minutes. Jenna Brownlee MD 08/10/2018 9:34 DATE OF SERVICE: 08/10/2018 documented in this enc ounter Discharge Instructions AttachmentsThe following attachments cannot be sent through Care Everywhere.Caring for Sore s, Herpes: (Belarusian)documented in this encounter Medications at Time of Discharge [...] + + documented as of this encounter Progress Notes Caty Schuster, DO - 08/09/2018 8:46 AM PSTFormatting of this note might be diffe rent from the original. OBSTETRICAL PROGRESS NOTE Kristyn Longoria : 2000 ADMISSION DATE AND TIME08/07/2018 15:39 DATE/TIME: 08/09/2018 8:46 Hospital Day: 3 1 day post vaginal delivery Subjective The patient feels tired. Her pain is well controlled with current medications.She denies a ny emotional concerns. The baby is doing well. Baby is feeding via . Urinary ou tput is adequate. The patient is ambulating well. She is tolerating a regular diet well. She is passing flatus. She did get dizzy yesterday in the shower. She feels like she is just really tired from lack of sleep. She has been able to get up out of bed without help but h as not done much activity. She does feel week. No SOB. Objective Vitals with Comments 08/08/2018 08/08/2018 08/09/2018 08/09/2018 SYSTOLIC 111 121 103 118 DIASTOLIC 64 80 55 72 BP Comments - - - - Pulse 98 88 101 88 Temp 97.7 97.7 97.3 98.06 Resp 18 16 16 18 Weight - - - - Height - - - - SPO2 99 98 99 98 BMI - - - - Pain Score - - - - Pain Loc - - - - General: alert, appears stated age and cooperative Respiratory: clear to auscultation bilaterally Cardiovascular: regular rate and rhythm, S1, S2 normal, no murmur, click, rub or gallop Abdomen: soft,nontender,with normal bowel sounds Lochia: light lochia UterineFundus: firm DVT Evaluation: No evidence of DVT seen on physical exam. Recent Results (from the past 24 hour(s)) CBC with Differential Collection Time: 08/09/18 6:25 Result Value Ref Range WBC 17.3 (H) 4.3 - 10.4 K/uL RBC 2.13 (L) 4.12 - 5.30 M/uL Hemoglobin 5.4 (LL) 12.4 - 15.7 g/dL Hematocrit 16.9 (LL) 37.7 - 47.0 % MCV 79.3 (L) 82.0 - 97.0 fL MCH 25.4 (L) 27.1 - 32.3 pg MCHC 32.0 32.0 - 36.9 g/dL RDW-CV 13.7 0.0 - 17.0 % Platelet Count 83 (L) 150 - 450 K/uL MPV 11.4 9.4 - 12.3 fL % Neutrophils 74.7 42.0 - 76.0 % % Lymphocytes 18.3 (L) 20.0 - 40.0 % % Monocytes 4.7 3.0 - 13.0 % % Eosinophils 1.2 0.0 - 7.0 % % Basophils 0.2 0.0 - 2.0 % % Immature Granulocytes 0.9 (H) 0.0 - 0.5 % Absolute Neutrophils 12.92 (H) 2.50 - 8.50 K/uL Absolute Lymphocytes 3.17 1.00 - 3.80 K/uL Absolute Monocytes 0.82 (H) 0.00 - 0.80 K/uL Absolute Eosinophils 0.21 0.00 - 0.70 K/uL Absolute Basophils 0.03 0.00 - 0.20 K/uL Absolute Immature Granulocytes 0.15 0.00 - 0.15 K/uL % nRBC 0 <=0 per 100 WBC's Absolute nRBC 0.02 (H) 0.00 - 0.01 K/uL Red Blood Cells (PRBC) - Crossmatch Collection Time: 08/09/18 7:04 Result Value Ref Range Product Code Q6357C33 UNIT # [id number] UNIT ABO O UNIT RH POS Unit Status Crossmatched Blood Product [facility] OPOS Blood Product Expiration Date and Time Product Blood Type Barcode 5100 Product Code T5250Q36 UNIT # [id number] UNIT ABO O UNIT RH POS Unit Status Crossmatched Blood Product [facility] OPOS Blood Product Expiration Date and Time [id number] Product Blood Type Barcode 5100 Product Code Y1459L49 UNIT # [id number] UNIT ABO O UNIT RH POS Unit Status Crossmatched Blood Product [facility] OPOS Blood Product Expiration Date and Time Product Blood Type Barcode 5100 Assessment & Plan Status post vaginal delivery. hemorrhage Acute blood loss anemia I recommend she have blood. We reviewed the risks of blood transfusion. She is agreeable . Will transfuse 3 unites PRBC and 1 unit FFP Continue current care. Electronically signed: Caty Schuster DO 08/09/2018 8:46 [email or web address] DO - 08/08/2018 7:27 AM PST OBSTETRICAL PROGRESS NOTE Kristyn Longoria : 2000 ADMISSION DATE AND TIME08/07/2018 15:39 DATE/TIME: 08/08/2018 7:27 Hospital Day: 2 0 days post vaginal delivery Subjective The patient feels tired. Her pain is moderately controlled with current medications.She de nies emotional concerns. The baby is doing well. . Baby is feeding via . Urinar y output is adequate. The patient is ambulating well. She is tolerating a regular diet but h as not eaten much since delivery. Objective Vitals with Comments 07/23/2018 08/06/2018 08/07/2018 08/08/2018 SYSTOLIC 118 130 130 114 DIASTOLIC 81 81 66 70 Pulse - - 87 107 Temp - - 97.7 98.2 Resp - - 18 18 Weight 156 lbs 166 lbs 166 lbs - Height - - 5' 5.512" - SPO2 - - 100 96 BMI - - 27.3 kg/m2 - Pain Score 0 - No pain 3 - - Pain Loc - Back - - General: alert, appears stated age and cooperative Respiratory: clear to auscultation bilaterally Cardiovascular: regular rate and rhythm, S1, S2 normal, no murmur, click, rub or gallop Abdomen: soft,nontender,with normal bowel sounds Lochia: moderate lochia and light lochia UterineFundus: firm DVT Evaluation: No evidence of DVT seen on physical exam. Recent Results (from the past 24 hour(s)) Rupture of Membranes Collection Time: 08/07/18 16:04 Result Value Ref Range Amnisure, ROM Negative Negative CBC no Differential Collection Time: 08/07/18 19:10 Result Value Ref Range WBC 12.6 (H) 4.3 - 10.4 K/uL RBC 3.93 (L) 4.12 - 5.30 M/uL Hemoglobin 9.9 (L) 12.4 - 15.7 g/dL Hematocrit 31.3 (L) 37.7 - 47.0 % MCV 79.6 (L) 82.0 - 97.0 fL MCH 25.2 (L) 27.1 - 32.3 pg MCHC 31.6 (L) 32.0 - 36.9 g/dL RDW-CV 13.0 0.0 - 17.0 % Platelet Count 157 150 - 450 K/uL MPV 12.8 (H) 9.4 - 12.3 fL Type and Screen Collection Time: 08/07/18 19:10 Result Value Ref Range ABO O Rh Type Positive Antibody Screen Negative ABO Rh, Confirm Collection Time: 08/07/18 19:47 Result Value Ref Range Rh Type Positive ABO O CBC with Differential Collection Time: 08/08/18 5:10 Result Value Ref Range WBC 19.8 (H) 4.3 - 10.4 K/uL RBC 3.26 (L) 4.12 - 5.30 M/uL Hemoglobin 8.4 (L) 12.4 - 15.7 g/dL Hematocrit 25.6 (L) 37.7 - 47.0 % MCV 78.5 (L) 82.0 - 97.0 fL MCH 25.8 (L) 27.1 - 32.3 pg MCHC 32.8 32.0 - 36.9 g/dL RDW-CV 13.2 0.0 - 17.0 % Platelet Count 92 (L) 150 - 450 K/uL MPV 12.5 (H) 9.4 - 12.3 fL % Neutrophils 90.8 (H) 42.0 - 76.0 % % Lymphocytes 4.5 (L) 20.0 - 40.0 % % Monocytes 3.7 3.0 - 13.0 % % Eosinophils 0.0 0.0 - 7.0 % % Basophils 0.1 0.0 - 2.0 % % Immature Granulocytes 0.9 (H) 0.0 - 0.5 % Absolute Neutrophils 18.02 (H) 2.50 - 8.50 K/uL Absolute Lymphocytes 0.89 (L) 1.00 - 3.80 K/uL Absolute Monocytes 0.73 0.00 - 0.80 K/uL Absolute Eosinophils 0.00 0.00 - 0.70 K/uL Absolute Basophils 0.02 0.00 - 0.20 K/uL Absolute Immature Granulocytes 0.17 (H) 0.00 - 0.15 K/uL % nRBC 0 <=0 per 100 WBC's Absolute nRBC 0.02 (H) 0.00 - 0.01 K/uL Slide Review, Peripheral Smear Collection Time: 08/08/18 5:10 Result Value Ref Range WBC MORPHOLOGY Normal Platelet, Giant Present (A) Not Present HYPOCHROMIA Slight (A) (none) Assessment & Plan Status post vaginal delivery. hemorrhage -repeat CBC in am -PO iron Edema of labia and LE -has catheter placed -continue ice packs Will plan to discharge catheter tomorrow. Electronically signed: Caty Schuster DO 08/08/2018 7:27 WhCaty sotelo DO - 08/08/2018 4:33 AM PSTCalled to see patient. She has had some extra bleeding since delivery. Feeling ok. On exam, her fundus is at her umbilicus and firm. No clots or increased bleeding came out with massage. She is on pitocin. She received methergine a little over 40 minutes ago. Syd perdomo had issues with being able to urinate so had a straight cath done resulting in 400 cc. Syd perdomo is feeling ok otherwise. Will continue to monitor closely. documented in this encounter Plan of Treatment Not on filedocumented as of this encounter Procedures + +--------+ + + + | Procedure Name | Priori | Date/Time | Associated Diagnosis | Comments | | | ty | | | | + +--------+ + + + | HEMOGLOBIN AND | STAT | 08/10/2018 | | Results for this | | HEMATOCRIT | | 9:26 AM | | procedure are in the | | | | PST | | results section. | + +--------+ + + + | PRODUCT: PLASMA, | Routin | 08/09/2018 | | Results for this | | FROZEN <24 | e | 2:14 PM | | procedure are in the | | | | PST | | results section. | + +--------+ + + + | PRODUCT: RBC | Routin | 08/09/2018 | | Results for this | | | e | 12:35 PM | | procedure are in the | | | | PST | | results section. | + +--------+ + + + | CBC WITH | Routin | 08/09/2018 | | Results for this | | DIFFERENTIAL | e | 6:25 AM | | procedure are in the | | | | PST | | results section. | + +--------+ + + + | SLIDE REVIEW, | Routin | 08/08/2018 | | Results for this | | PERIPHERAL SMEAR | e | 5:10 AM | | procedure are in the | | | | PST | | results section. | + +--------+ + + + | CBC WITH | Routin | 08/08/2018 | | Results for this | | DIFFERENTIAL | e | 5:10 AM | | procedure are in the | | | | PST | | results section. | + +--------+ + + + | SURGICAL PATHOLOGY | Routin | 08/08/2018 | | Results for this | | EXAM | e | 12:00 AM | | procedure are in the | | | | PST | | results section. | + +--------+ + + + | C. TRACHOMATIS AND | Routin | 08/07/2018 | | Results for this | | N. GONORRHOEAE, NAAT | e | 10:43 PM | | procedure are in the | | (APTIMA) | | PST | | results section. | + +--------+ + + + | CHANOCONFIRM | Routin | 08/07/2018 | | Results for this | | | e | 7:47 PM | | procedure are in the | | | | PST | | results section. | + +--------+ + + + | CBC NO DIFFERENTIAL | STAT | 08/07/2018 | | Results for this | | | | 7:10 PM | | procedure are in the | | | | PST | | results section. | + +--------+ + + + | TYPE AND SCREEN | Routin | 08/07/2018 | | Results for this | | | e | 7:10 PM | | procedure are in the | | | | PST | | results section. | + +--------+ + + + | RUPTURE OF MEMBRANES | Routin | 08/07/2018 | | Results for this | | | e | 4:04 PM | | procedure are in the | | | | PST | | results section. | + +--------+ + + + documented in this encounter Results Hemoglobin and Hematocrit (08/10/2018 9:26 AM PST) + + + + + + | Component | Value | Ref Range | Performed | Pathologist | | | | | At | Signature | + + + + + + | Hemoglobin | 9.3 (L) | 12.4 - 15.7 | [facility] | | | | | g/dL | [facility] | | | | | | [facility] | | + + + + + + | Hematocrit | 28.0 (L) | 37.7 - 47.0 % | [facility] | | | | | [...] + + | [facility] | [address] | [place] | [phone] | | [facility] | | [address] | | + + + + + PRODUCT: Plasma (08/09/2018 2:14 PM PST) + + + + + + | Component | Value | Ref Range | Performed | Pathologist | | | | | At | Signature | + + + + + + | Product | [id number] | | [facility] | | | Code | | | [facility] | | | | [facility] | | | | | | [facility]LOOD BANK | | + + + + + + | UNIT # | [id number] | | [facility] | | | | | | [facility] | | | | [facility] | | | | | | [facility]LOOD BANK | | + + + + + + | UNIT ABO | O | | [facility] | | | | | | [facility] | | | | [facility] | | | | | | [facility]LOOD BANK | | + + + + + + | UNIT RH | POS | | [facility] | | | | | | [facility] | | | | [facility] | | | | | | [facility]LOOD BANK | | + + + + + + | Unit Status | Issued | | [facility] | | | | | | [facility] | | | | [facility] | | | | | | [facility]LOOD BANK | | + + + + + + | Blood | OPOS | | [facility] | | | Product | | | [facility] | | | [facility] | [facility] | | | | | | [facility]LOOD BANK | | + + + + + + | Blood | [id number] | | [facility] | | | Product | | | [facility] | | | Expiration | | | [facility] | | | Date and | | | BLOOD BANK | | | Time | | | | | + + + + + + | Product | 5100 | | [facility] | | | Blood Type | | | [facility] | | | Barcode | | | [facility] | | | | | | BLOOD BANK | | + + + + + + + + | Specimen | + + | | + + + + + + + | Performing | Address | City/State/Zipcode | Phone Number | | Organization | | | | + + + + + | [facility] | [address] | [place] | [phone] | | [facility] | | [address] | | + + + + + Red Blood Cells (PRBC) - Crossmatch (08/09/2018 12:35 PM PST) + + + + + + | Component | Value | Ref Range | Performed | Pathologist | | | | | At | Signature | + + + + + + | Product | [id number] | | [facility] | | | Code | | | [facility] | | | | | | [facility]LOOD BANK | | + + + + + + | UNIT # | [id number] | | [facility] | | | | | | [facility] | | [facility] | | | | | | [facility]LOOD BANK | | + + + + + + | UNIT ABO | O | | [facility] | | | | | | [facility] | | | | [facility] | | | | | | [facility]LOOD BANK | | + + + + + + | UNIT RH | POS | | [facility] | | | | | | [facility] | | | | [facility] | | | | | | [facility]LOOD BANK | | + + + + + + | Unit Status | Issued | | [facility] | | | | | | [facility] | | | | [facility] | | | | | | [facility]LOOD BANK | | + + + + + + | Blood | OPOS | | [facility] | | | Product | | | [facility] | | | [facility] | | | [facility] | | | | | | BLOOD BANK | | + + + + + + | Blood | [id number] | | [facility] | | | Product | | | [facility] | | | Expiration | | | [facility] | | | Date and | | | BLOOD BANK | | | Time | | | | | + + + + + + | Product | 5100 | | [facility] | | | Blood Type | | | [facility] | | | Barcode | | | [facility] | | | | | | BLOOD BANK | | + + + + + + | Product | [id number] | | [facility] | | | Code | | | [facility] | | | | | | [facility]LOOD BANK | | + + + + + + | UNIT # | [id number] | | [facility] | | | | | | [facility] | | | | [facility] | | | | | | [facility]LOOD [facility]ANK | | + + + + + + | UNIT ABO | O | | [facility] | | | | | | [facility] | | | | [facility] | | | | | | [facility]LOOD BANK | | + + + + + + | UNIT RH | POS | | [facility] | | | | | | [facility] | | | | [facility] | | | | | | BLOOD BANK | | + + + + + + | Unit Status | Issued | | [facility] | | | | | | [facility] | | | | [facility] | | | | | | [facility]LOOD BANK | | + + + + + + | Blood | OPOS | | [facility] | | | Product | | | [facility] | | | [facility] | | | [facility] | | | | | | BLOOD BANK | | + + + + + + | Blood | [id number] | | [facility] | | | Product | | | [facility] | | | Expiration | | | [facility] | | | Date and | | | BLOOD BANK | | | Time | | | | | + + + + + + | Product | 5100 | | [facility] | | | Blood Type | | | [facility] | | | Barcode | | | [facility] | | | | | | BLOOD BANK | | + + + + + + | Product | [id number] | | [facility] | | | Code | | | [facility] | | | | [facility] | | | | | | [facility]LOOD BANK | | + + + + + + | UNIT # | [id number] | | [facility] | | | | | | [facility] | | | | [facility] | | | | | | BLOOD BANK | | + + + + + + | UNIT ABO | O | | [facility] | | | | | | [facility] | | | | [facility] | | | | | | BLOOD BANK | | + + + + + + | UNIT RH | POS | | [facility] | | | | | | [facility] | | | | [facility] | | | | | | BLOOD BANK | | + + + + + + | Unit Status | Issued | | [facility] | | | | | | [facility] | | | | [facility] | | | | | | [facility]LOOD BANK | | + + + + + + | Blood | OPOS | | [facility] | | | Product | | | [facility] | | | [facility] | | | [facility] | | | | | | BLOOD BANK | | + + + + + + | Blood | [id number] | | [facility] | | | Product | | | [facility] | | | Expiration | | | [facility] | | | Date and | | | BLOOD BANK | | | Time | | | | | + + + + + + | Product | 5100 | | [facility] | | | Blood Type | | | [facility] | | | Barcode | | | [facility] | | | | | | BLOOD BANK | | + + + + + + + + | Specimen | + + | | + + + + + + + | Performing | Address | City/State/Zipcode | Phone Number | | Organization | | | | + + + + + | [facility] | [address] | [place] | [phone] | | [facility] | | [address] | | + + + + + CBC with Differential (08/09/2018 6:25 AM PST) + + + + + + | Component | Value | Ref Range | Performed | Pathologist | | | | | At | Signature | + + + + + + | WBC | 17.3 (H) | 4.3 - 10.4 K/uL | [facility] | | | | | | [facility] | | | | | | [facility] | | + + + + + + | RBC | 2.13 (L) | 4.12 - 5.30 | [facility] | | | | | M/uL | [facility] | [facility] | | | | | | [facility] | | + + + + + + | Hemoglobin | 5.4 (LL) | 12.4 - 15.7 | [facility] | | | | | g/dL | [facility] | [facility] | | | | | | [facility] | | + + + + + + | Hematocrit | 16.9 (LL) | 37.7 - 47.0 % | [facility] | | | | | | [facility] | [facility] | | | | | | [facility] | | + + + + + + | MCV | 79.3 (L) | 82.0 - 97.0 fL | [facility] | | | | | | [facility] | [facility] | | | | | | [facility] | | + + + + + + | MCH | 25.4 (L) | 27.1 - 32.3 pg | [facility] | | | | | | [facility] | | [facility] | | | | | | [facility] | | + + + + + + | MCHC | 32.0 | 32.0 - 36.9 | [facility] | | | | | g/dL | [facility] | | [facility] | | | | | | [facility] | | + + + + + + | RDW-CV | 13.7 | 0.0 - 17.0 % | [facility] | | | | | | [facility] | | [facility] | [facility] | | | | | | [facility] | | + + + + + + | Platelet | 83 (L) | 150 - 450 K/uL | [facility] | | | Count | | | [facility] | | | | [facility] | | | | | | [facility] | | + + + + + + | MPV | 11.4 | 9.4 - 12.3 fL | [facility] | | | | | | [facility] | | | [facility] | | | | | | [facility] | | + + + + + + | % | 74.7 | 42.0 - 76.0 % | [facility] | | | Neutrophils | | | [facility] | | [facility] | | | | | | [facility] | | + + + + + + | % | 18.3 (L) | 20.0 - 40.0 % | [facility] | | | Lymphocytes | | | [facility] | | [facility] | | | | | | [facility] | | + + + + + + | % Monocytes | 4.7 | 3.0 - 13.0 % | [facility] | | | | | | [facility] | | | | [facility] | | | | | | [facility] | | + + + + + + | % | 1.2 | 0.0 - 7.0 % | [facility] | | | Eosinophils | | | [facility] | | [facility] | | | | | | [facility] | | + + + + + + | % Basophils | 0.2 | 0.0 - 2.0 % | [facility] | | | | | | [facility] | | | | [facility] | | | | | | [facility] | | + + + + + + | % Immature | 0.9 (H) | 0.0 - 0.5 % | [facility] | | | Granulocyte | | | [facility] | | | s | | | [facility] | | | | | | LABORATORY | | + + + + + + | Absolute | 12.92 (H) | 2.50 - 8.50 | [facility] | | | Neutrophils | | K/uL | [facility] | [facility] | | | | | | [facility] | | + + + + + + | Absolute | 3.17 | 1.00 - 3.80 | [facility] | | | Lymphocytes | | K/uL | [facility] | [facility] | | | | | | [facility] | | + + + + + + | Absolute | 0.82 (H) | 0.00 - 0.80 | [facility] | | | Monocytes | | K/uL | [facility] | [facility] | | | | | | [facility] | | + + + + + + | Absolute | 0.21 | 0.00 - 0.70 | [facility] | | | Eosinophils | | K/uL | [facility] | [facility] | | | | | | [facility] | | + + + + + + | Absolute | 0.03 | 0.00 - 0.20 | [facility] | | | Basophils | | K/uL | [facility] | | | | [facility] | | | | | | [facility] | | + + + + + + | Absolute | 0.15 | 0.00 - 0.15 | [facility] | | | Immature | | K/uL | [facility] | | | Granulocyte | | | HOSPITAL | | | s | | | LABORATORY | | + + + + + + | % nRBC | 0 | <=0 per 100 | [facility] | | | | | WBC's | [facility] | | | | [facility] | | | | | | LABORATORY | | + + + + + + | Absolute | 0.02 (H) | 0.00 - 0.01 | [facility] | | | nRBC | | K/uL | [facility] | | | | | [...] + + | [facility] | [address] | [place], [place] | [phone] | | [facility] | | [id number] | | + + + + + Slide Review, Peripheral Smear (08/08/2018 5:10 AM PST) + + + + + + | Component | Value | Ref Range | Performed | Pathologist | | | | | At | Signature | + + + + + + | WBC | Normal | | [facility] | | | Morphology | | | [facility] | | | | | | LAB[facility]ATORY | | + + + + + + | Giant | Present (A) | Not Present | [facility] | | | Platelets | | | [facility] | | | | | | LABORATORY | | + + + + + + | Hypochromas | Slight (A) | (none) | [facility] | | | ia | | | [facility] | | | [...] + + | [facility] | [address] | [place] | [phone] | | [facility] | | [id number] | | + + + + + CBC with Differential (08/08/2018 5:10 AM PST) + + + + + + | Component | Value | Ref Range | Performed | Pathologist | | | | | At | Signature | + + + + + + | WBC | 19.8 (H) | 4.3 - 10.4 K/uL | [facility] | | | | | | [facility] | [facility] | | | | | | [facility] | | + + + + + + | RBC | 3.26 (L) | 4.12 - 5.30 | [facility] | | | | | M/uL | [facility] | | | | | | [facility]ATORY | | + + + + + + | Hemoglobin | 8.4 (L) | 12.4 - 15.7 | [facility] | | | | | g/dL | [facility] | | | | | | [facility]ATORY | | + + + + + + | Hematocrit | 25.6 (L) | 37.7 - 47.0 % | [facility] | | | | | | [facility] | | | | | | [facility] | | + + + + + + | MCV | 78.5 (L) | 82.0 - 97.0 fL | [facility] | | | | | [facility] | | | | | | [facility] | | + + + + + + | MCH | 25.8 (L) | 27.1 - 32.3 pg | [facility] | | | | | [facility] | | | | | | [facility]ORY | | + + + + + + | MCHC | 32.8 | 32.0 - 36.9 | [facility] | | | | | g/dL | [facility] | | | | | | [facility]ORY | | + + + + + + | RDW-CV | 13.2 | 0.0 - 17.0 % | [facility] | | | | | [facility] | | + + + + + + | Platelet | 92 (L) | 150 - 450 K/uL | [facility] | | | Count | | | [facility] | | | | [facility] | | + + + + + + | MPV | 12.5 (H) | 9.4 - 12.3 fL | [facility] | | [facility] | | | | | | [facility] | | + + + + + + | % | 90.8 (H) | 42.0 - 76.0 % | [facility] | | | Neutrophils | | | [facility] | | | | | [facility] | | + + + + + + | % | 4.5 (L) | 20.0 - 40.0 % | [facility] | | | Lymphocytes | | | [facility] | | | | | | [facility] | | + + + + + + | % Monocytes | 3.7 | 3.0 - 13.0 % | [facility] | | | | | | [facility] | | + + + + + + | % | 0.0 | 0.0 - 7.0 % | [facility] | | | Eosinophils | | | [facility] | | | | | | [facility] | | + + + + + + | % Basophils | 0.1 | 0.0 - 2.0 % | [facility] | | | | | [facility] | | + + + + + + | % Immature | 0.9 (H) | 0.0 - 0.5 % | [facility] | | | Granulocyte | | | [facility] | | | | | | LAB[facility]ATORY | | + + + + + + | Absolute | 18.02 (H) | 2.50 - 8.50 | [facility] | | | Neutrophils | | K/uL | [facility] | | | | | [facility] | | + + + + + + | Absolute | 0.89 (L) | 1.00 - 3.80 | [facility] | | | Lymphocytes | | K/uL | [facility] | | | | | [facility] | | + + + + + + | Absolute | 0.73 | 0.00 - 0.80 | [facility] | | | Monocytes | | K/uL | [facility] | | | | | | [facility] | | + + + + + + | Absolute | 0.00 | 0.00 - 0.70 | [facility] | | | Eosinophils | | K/uL | [facility] | | | | | | [facility] | | + + + + + + | Absolute | 0.02 | 0.00 - 0.20 | [facility] | | | Basophils | | K/uL | [facility] | | | | | | [facility] | | + + + + + + | Absolute | 0.17 (H) | 0.00 - 0.15 | [facility] | | | Immature | | K/uL | [facility] | | | Granulocyte | | [facility] | | | s | | | LABORATORY | | + + + + + + | % nRBC | 0 | <=0 per 100 | [facility] | | | | | WBC's | [facility] | | | | | | [facility] | | + + + + + + | Absolute | 0.02 (H) | 0.00 - 0.01 | [facility] | | | nRBC | | K/uL | [facility] | | | | | [...] + + | [facility] | [address] | [place] | [phone] | | [facility] | | [address] | | + + + + + Surgical Pathology Exam (08/08/2018 12:00 AM PST) + + | Specimen | + + | Tissue - Entire | | placenta (body | | structure) | + + + + + | Narrative | Performed At | + + + | SPECIMEN(S): A PLACENTA SPECIMEN SOURCE: A. PLACENTA | [facility] | | CLINICAL HISTORY: Female infant, 7/8. 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 | | | delivery. Baby weight 3500 grams. FINAL PATHOLOGIC | | | DIAGNOSIS: Placenta, delivery: - Cardona placenta (420 grams) | | | with mild acute chorionitis and focal acute chorioamnionitis. - No | | | viral inclusions identified, in the sections examined. - No | | | significant villitis identified. - Three-vessel umbilical cord and | | | membranes with no significant pathologic alteration. NRT:cml:C2NR | | | MICROSCOPIC EXAMINATION: Histologic sections of all submitted | | | blocks are examined by light microscopy. These findings, together | | | with the gross examination, support the pathologic diagnosis. | | | GROSS DESCRIPTION: Received fresh in a container labeled "Kristny Kate | | | Von, " is a 500 gram, 17 x 14 x 2 cm ovoid placenta with | | | an eccentrically inserted umbilical cord, inserted 1.5 cm from the | | | nearest placental margin. Approximately 22 cm of umbilical cord is | | | removed fresh for possible additional studies. The remainder of the | | | umbilical cord measures 8.5 cm in length x 1.4 cm in diameter and has | | | an unremarkable baldwin-white external surface. There is unremarkable | | | trivascular architecture on cut surfaces, and a hotel services sales representative section | | | of umbilical cord near the cord insertion site is submitted in | | | cassette (A1). There is an additional segment of umbilical cord in | | | the specimen container measuring 12 cm in length x 1.5 cm in | | | diameter with an unremarkable baldwin-white external surface and a normal | | | spiral pattern. It also has unremarkable trivascular | | | architecture on cut surfaces. The membranes are baldwin-pink and | | | semitranslucent, with no lesions identified. A hotel services sales representative | | | section of membrane roll is submitted in cassette (A1) as well. | | | The placenta minus the umbilical cord and membranes, weighs 420 | | | grams. The surface is pink-purple, with a the coarse and fine | | | vessels ramifying the surface normally. The maternal surface is | | | comprised of brown-red cotyledons which are grossly intact. On | | | sectioning there is an area of subchorionic hemorrhage near the | | | umbilical cord insertion site, measuring 3 x 2.5 cm, but no other | | | masses or lesions are grossly identified. Heavy Equipment [employer] Supervisor | | | sections are submitted as follows: (A2) - placenta with area of | | | subchorionic hemorrhage near umbilical cord insertion site, (A3) | | | - hotel services sales representative section of placenta near cord insertion site, (A4) - | | | random placental disk. NRT:cml PERFORMING LABORATORY: The | | | technical component was performed by [facility] | | | [place] [address] (Medical | | | Director: Mark Blunt MD; CLIA# [id number]). Professional | | | interpretation was performed by [facility] | | | [place] [address] (Medical | | | Director: Mark Blunt MD; CLIA# [id number]). | | | Diagnostician: Georgiana Santana MD Pathologist Electronically | | | Signed 08/17/2018 | | + + + + +---------+ + + | Performing | Address | City/State/Zipcode | Phone Number | | Organization | | | | + +---------+ + + | [facility] | | | | | [facility] | | | | + +---------+ + + C. trachomatis and N. gonorrhoeae, NAAT (APTIMA) (08/07/2018 10:43 PM PST) + + + + + + | Component | Value | Ref Range | Performed | Pathologist | | | | | At | Signature | + + + + + + | Chlamydia | Not detected | Not detected | REFERENCE | | | trachomatis | | | LAB [facility] | | | rRNA PCR | | | DIAGNOSTICS | | | [...] | | COMBO2(R) Assay | | - [facility] | | | | (GEN-PROBE(R)). The | [...] Diagnostics | | | | | | [facility] | | | | | | Aimee Gonzales M.D., | | | | | | Ph.D., Laboratory | | | | | | Director [id number] | | | | | | [facility] | | | | | | [place] [address] | | | | | | TYREE #[id number] | | | | + + + + + + + + | Specimen | + + | Tissue - Region of | | vagina (body | | structure) | + + + + + | Narrative | Performed At | + + + | Performing Organization Information: Site ID: [email or web address]/ | REFERENCE LAB | | N.GONORRHOEAE RNA, TMA, [facility]ITAL Name: Address: , | [facility] | | Director: | DI[facility]NOSTICS - | | | NICOLE | | | [place] | + + + + + + + + | Performing | Address | City/State/Zipcode | Phone Number | | Organization | | | | + + + + + | REFERENCE LAB | [address] | [place], [place] | | | [facility] - | | [address] | | | NICOLE [place] | | | | + + + + + ABO Rh, Confirm (08/07/2018 7:47 PM PST) + + + + + + | Component | Value | Ref Range | Performed | Pathologist | | | | | At | Signature | + + + + + + | Rh Type | Positive | | [facility] | | | | | | [facility]ANK | | + + + + + + | ABO | O | | [facility] | [facility] | | | | | | [facility]OD [facility]ANK | | + + + + + + + + | Specimen | + + | Blood | + + + + + + + | Performing | Address | City/State/Zipcode | Phone Number | | Organization | | | | + + + + + | [facility] | [address] | [place] | [phone] | | HOSP[facility] | | [address] | | + + + + + Type and Screen (08/07/2018 7:10 PM PST) + + + + + + | Component | Value | Ref Range | Performed | Pathologist | | | | | At | Signature | + + + + + + | ABO | O | | [facility] | | [facility] | | | | | | [facility]LOOD BANK | | + + + + + + | Rh Type | Positive | | [facility] | | | | [facility] | | | | | | [facility]LOOD BANK | | + + + + + + | Antibody | Negative | | [facility] | | | Screen | | | [facility] | | | | | | [facility]LOOD BANK | | + + + + + + + + | Specimen | + + | Blood | + + + + + + + | Performing | Address | City/State/Zipcode | Phone Number | | Organization | | | | + + + + + | [facility] | [address] | [place] | [phone] | | HOSP[facility] | | [address] | | + + + + + CBC no Differential (08/07/2018 7:10 PM PST) + + + + + + | Component | Value | Ref Range | Performed | Pathologist | | | | | At | Signature | + + + + + + | WBC | 12.6 (H) | 4.3 - 10.4 K/uL | [facility] | | | | | [facility] | [facility] | | | | | | [facility]ATORY | | + + + + + + | RBC | 3.93 (L) | 4.12 - 5.30 | [facility] | | | | | M/uL | [facility] | | | | | | [facility]ATORY | | + + + + + + | Hemoglobin | 9.9 (L) | 12.4 - 15.7 | [facility] | | | | | g/dL | [facility] | | | | | | LABORATORY | | + + + + + + | Hematocrit | 31.3 (L) | 37.7 - 47.0 % | [facility] | | | | | [facility] | | | | | | LAB[facility]ATORY | | + + + + + + | MCV | 79.6 (L) | 82.0 - 97.0 fL | [facility] | | | | | [facility] | | | | | | [facility]ATORY | | + + + + + + | MCH | 25.2 (L) | 27.1 - 32.3 pg | [facility] | | | | | [facility] | | | | | | [facility]ATORY | | + + + + + + | MCHC | 31.6 (L) | 32.0 - 36.9 | [facility] | | | | | g/dL | [facility] | | | | | | [facility]ATORY | | + + + + + + | RDW-CV | 13.0 | 0.0 - 17.0 % | [facility] | | | | | [facility] | | | | | | [facility]ATORY | | + + + + + + | Platelet | 157 | 150 - 450 K/uL | [facility] | | | Count | | | [facility] | | | | | | [facility]ATORY | | + + + + + + | MPV | 12.8 (H) | 9.4 - 12.3 fL | [facility] | | | | | [...] + + | [facility] | [address] | [place] | [phone] | | [facility]OS[facility]ORY | | [address] | | + + + + + Rupture of Membranes (08/07/2018 4:04 PM PST) + + + + + + | Component | Value | Ref Range | Performed | Pathologist | | | | | At | Signature | + + + + + + | Rupture of | Negative | Negative | [facility] | | | | | [facility] | | | Membranes | | | [facility] | | | | | | LABORATORY | | + + + + + + + + | Specimen | + + | Body Fluid - | | 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) | + + + + + + + | Performing | Address | City/State/Zipcode | Phone Number | | Organization | | | | + + + + + | [facility] | [address] | [place] | [phone] | | HOS[facility]ORY | | [address] | | + + + + + documented in this encounter Visit Diagnoses + + | Diagnosis | + + | labor in third trimester with delivery - Primary | + + documented in this encounter Administered Medications + +--------+ +--------+------+------+ | Medication Order | MAR | Action | Dose | Rate | Site | | | Action | Date | | | | + +--------+ +--------+------+------+ | ferrous sulfate tablet 325 mg | Given | 08/10/19 | 325 mg | | | | 325 mg, Oral, DAILY WITH | | 19 8:25 | | | | | BREAKFAST, First dose on Sat | | AM PST | | | | | 08/08/18 at 0800, | | | | | | + +--------+ +--------+------+------+ +-------+ +--------+---+---+ | Given | 08/09/19 | 325 mg | | | | | 19 8:51 | | | | | | AM PST | | | | +-------+ +--------+---+---+ | Given | 08/08/19 | 325 mg | | | | | 19 8:35 | | | | | | AM PST | | | | +-------+ +--------+---+---+ +---+---+ | | | +---+---+ + +-------+ +--------+---+---+ | ibuprofen (ADVIL,MOTRIN) tablet | Given | 08/10/19 | 800 mg | | | | 800 mg 800 mg, Oral, EVERY 8 | | 19 2:47 | | | | | HOURS PRN, Mild Pain, First line | | AM PST | | | | | agent, Starting 08/08/18 at | | | | | | | 0242, If urine output is less | | | | | | | than 240 mL/8 hours (30 mL/hr) or | | | | | | | if signs of bleeding, contact MD | | | | | | | and hold ibuprofen. May be | | | | | | | administered in conjunction with | | | | | | | acetaminophen as Multimodal Pain | | | | | | | Management., | | | | | | + +-------+ +--------+---+---+ +-------+ +--------+---+---+ | Given | 08/09/19 | 800 mg | | | | | 19 6:21 | | | | | | PM PST | | | | +-------+ +--------+---+---+ | Given | 08/09/19 | 800 mg | | | | | 19 8:51 | | | | | | AM PST | | | | +-------+ +--------+---+---+ +---+---+ | | | +---+---+ + +-------+ +---------+---+ + | influenza quadrivalent | Given | 08/10/19 | 0.5 mLs | | Deltoid- | | (FLUZONE, FLUARIX, AFLURIA | | 19 11:16 | | | Right | | QUADRIVALENT) vaccine injection | | AM PST | | | | | (syringe) 0.5 mL 0.5 mL, | | | | | | | Intramuscular, ONE TIME VACCINE, | | | | | | | 08/10/18 at 0800, For 1 dose, | | | | | | | Give patient education | | | | | | | information. Shake prior to use., | | | | | | | | | | | | | + +-------+ +---------+---+ + +---+---+ | | | +---+---+ + +---------+ +--------+-------+---+ | lactated ringers (LR) bolus | New Bag | 08/08/19 | 1,000 | 2000 | | | 1,000 mL 1,000 mL, Intravenous, | | 19 1:42 | mLs | mL/hr | | | Administer over 30 Minutes, ONCE, | | AM PST | | | | | 08/07/18 at 2100, For 1 dose, | | | | | | | Start warm fluid bolus when | | | | | | | epidural procedure is starting., | | | | | | | Pre-op | | | | | | + +---------+ +--------+-------+---+ +---+---+ | | | +---+---+ + +---------+ +---+-------+---+ | lactated ringers (LR) infusion | New Bag | 08/08/19 | | 125 | | | at 125 mL/hr, Intravenous, | | 19 12:01 | | mL/hr | | | CONTINUOUS, Starting 08/07/18 | | AM PST | | | | | at 1915, Labor and Delivery | | | | | | + +---------+ +---+-------+---+ +---------+ +---+-------+---+ | New Bag | 08/07/19 | | 125 | | | | 19 7:56 | | mL/hr | | | | PM PST | | | | +---------+ +---+-------+---+ +---+---+ | | | +---+---+ + +---------+ +---+-------+---+ | lactated ringers (LR) infusion | New Bag | 08/08/19 | | 200 | | | at 200 mL/hr, Intravenous, | | 19 10:43 | | mL/hr | | | CONTINUOUS, Starting 08/08/18 | | AM PST | | | | | at 0615 | | | | | | + +---------+ +---+-------+---+ +---+---+ | | | +---+---+ + +-------+ +--------+---+ + | methylergonovine (METHERGINE) | Given | 08/08/19 | 0.2 mg | | Ventrogl | | injection 0.2 mg 0.2 mg, | | 19 3:32 | | | uteal-Le | | Intramuscular, PRN, Bleeding, if | | AM PST | | | ft | | BP < 140/90, Starting 08/08/18 | | | | | | | at 0242, May repeat x 1. May | | | | | | | give only after delivery. | | | | | | | Consult provider if patient is | | | | | | | hypertensive., | | | | | | + +-------+ +--------+---+ + + +---+ | | | + +---+ | miSOPROStol (CYTOTEC) tablet | | | 600 mcg 600 mcg, Oral, PRN, | | | Post- hemorrhage, Starting | | | 08/08/18 at 0242, For 1 dose, | | | If general anesthesia give per | | | rectum. May give only after | | | delivery., | | + +---+ | | | + +---+ | miSOPROStol (CYTOTEC) tablet | | | 800 mcg 800 mcg, Rectal, PRN, | | | Post- hemorrhage, Starting | | | 08/08/18 at 0242, For 1 dose, | | | If unable to administer orally. | | | May give only after delivery., | | | | | + +---+ | | | + +---+ + +-------+ +------+---+---+ | oxyCODONE (ROXICODONE) tablet | Given | 08/10/19 | 5 mg | | | | 5-15 mg 5-15 mg, Oral, EVERY 4 | | 19 12:59 | | | | | HOURS PRN, Moderate Pain, Severe | | PM PST | | | | | Pain, Starting 08/08/18 at | | | | | | | 0242, If ineffective or not | | | | | | | tolerated use | | | | | | | hydrocodone-acetaminophen ([place]) | | | | | | | if ordered., | | | | | | + +-------+ +------+---+---+ +-------+ +------+---+---+ | Given | 08/10/19 | 5 mg | | | | | 19 2:47 | | | | | | AM PST | | | | +-------+ +------+---+---+ | Given | 08/09/19 | 5 mg | | | | | 19 6:21 | | | | | | PM PST | | | | +-------+ +------+---+---+ +---+---+ | | | +---+---+ + +---------+ + +-------+---+ | oxytocin in lactated ringers | New Bag | 08/08/19 | 333 | 333 | | | (PITOCIN) 30 units/500 mL (60 | | 19 1:37 | iam-un | mL/hr | | | iam-units/mL) infusion 0-999 | | AM PST | its/min | | | | iam-units/min (0-999 mL/hr), at | | | | | | | 0-999 mL/hr, Intravenous, | | | | | | | TITRATED, Starting 08/07/18 at | | | | | | | 1915, Low Dose (Cervical | | | | | | | Ripening) Management: Dose 1-4 | | | | | | | mU/min. Begin infusion at 1 | | | | | | | mU/min for 60 minutes, Increase | | | | | | | to 2 mU/min for 60 minutes, | | | | | | | Increase to 4 mU/min and continue | | | | | | | at this level until Brown score | | | | | | | of 7 or more. Maximum dose for | | | | | | | cervical ripening = 4mU/min. | | | | | | | Standard (Augmentation/Induction) | | | | | | | Management: Dose 0-40 mU/min. | | | | | | | Begin infusion at 1-2 mU/minute. | | | | | | | Increase at no greater than 2 | | | | | | | mU/min every 30 minutes, until | | | | | | | adequate labor. Maximum standard | | | | | | | dose for augmentation/induction | | | | | | | = 20 mU/min. Call provider to | | | | | | | increase above 20 mU/min. Do not | | | | | | | increase above 40 mU/min. Do not | | | | | | | increase rate if there is | | | | | | | tachysystole ( > 5 contractions | | | | | | | in 10 minutes averaged over 30 | | | | | | | minutes) or concern regarding | | | | | | | tracing. For tachysystole, | | | | | | | indications or increased | | | | | | | baseline uterine tone, notify | | | | | | | provider and stop or decrease | | | | | | | oxytocin infusion per unit policy | | | | | | | until the indication has ceased. | | | | | | | Restart the infusion per policy | | | | | | | or at 50% or less of the previous | | | | | | | rate. Third Stage | | | | | | | Management/Immediate : | | | | | | | Dose 0-999 mU/min. Vaginal | | | | | | | delivery: After delivery of | | | | | | | anterior shoulder or placenta, | | | | | | | 350 mL/hr x hour, then 100 | | | | | | | mL/hr x 3.5 hours. May stop after | | | | | | | 4 hours post-delivery. Titrate | | | | | | | to control bleeding. May | | | | | | | discontinue if fundus firm, | | | | | | | bladder not distended and patient | | | | | | | tolerating oral fluids and pain | | | | | | | meds. delivery: | | | | | | | Anesthesia will manage oxytocin | | | | | | | intraoperatively. Post anesthesia | | | | | | | care, 350 mL/hr x hour, then | | | | | | | 100 mL/hr x 3.5 hours. May stop | | | | | | | after 4 hours post-delivery. | | | | | | | Titrate to control bleeding. May | | | | | | | discontinue if fundus firm, | | | | | | | bladder not distended and patient | | | | | | | tolerating oral fluids and pain | | | | | | | meds., Use oxytocin for | | | | | | | management of: Third stage, Labor | | | | | | | and Delivery | | | | | | + +---------+ + +-------+---+ +---+---+ | | | +---+---+ + +---------+ + +-------+---+ | oxytocin in lactated ringers | New Bag | 08/08/19 | 350 | 350 | | | (PITOCIN) 30 units/500 mL (60 | | 19 3:37 | iam-un | mL/hr | | | iam-units/mL) infusion 0-999 | | AM PST | its/min | | | | iam-units/min (0-999 mL/hr), at | | | | | | | 0-999 mL/hr, Intravenous, | | | | | | | CONTINUOUS PRN, to control | | | | | | | bleeding, Starting 08/08/18 at | | | | | | | 0242, For 24 hours, Immediate | | | | | | | third stage management: 350 mL/hr | | | | | | | x hour, then 100 mL/hr x 3.5 | | | | | | | hours. May stop after 4 hours | | | | | | | post-delivery if bleeding is | | | | | | | controlled, bladder not | | | | | | | distended. In the event of | | | | | | | subsequent bleeding, | | | | | | | restart and titrate oxytocin, and | | | | | | | notify OB provider., | | | | | | + +---------+ + +-------+---+ +---+---+ | | | +---+---+ + +---------+ + +-------+---+ | penicillin G potassium 2.5 | New Bag | 08/08/19 | 2.5 | 200 | | | Million Units in NS 100 mL IVPB | | 19 1:00 | Million | mL/hr | | | 2.5 Million Units, Intravenous, | | AM PST | Units | | | | Administer over 30 Minutes, EVERY | | | | | | | 4 HOURS INTERVAL, First dose on | | | | | | | 08/07/18 at 2300, Starting 4 | | | | | | | hours after loading dose and | | | | | | | continuing until delivery. Keep | | | | | | | in refrigerator., Labor and | | | | | | | Delivery, Indications: GBS | | | | | | | Prophylaxis | | | | | | + +---------+ + +-------+---+ +---+---+ | | | +---+---+ + +---------+ + +-------+---+ | penicillin G potassium 5 | New Bag | 08/07/19 | 5 | 100 | | | Million Units in D5W 100 ml | | 19 9:09 | Million | mL/hr | | | (premix) 5 Million Units, | | PM PST | Units | | | | Intravenous, Administer over 60 | | | | | | | Minutes, ONCE, Fri08/07/18 at | | | | | | | 1915, For 1 dose, Keep in | | | | | | | refrigerator., Labor and | | | | | | | Delivery, Indications: GBS | | | | | | | Prophylaxis | | | | | | + +---------+ + +-------+---+ +---+---+ | | | +---+---+ + +-------+ + +---+---+ | 27-0.8 mg multivitamin | Given | 08/10/19 | 1 tablet | | | | 1 tablet 1 tablet, Oral, DAILY, | | 19 8:25 | | | | | First dose on 08/08/18 at | | AM PST | | | | | 0900, | | | | | | + +-------+ + +---+---+ +-------+ + +---+---+ | Given | 08/09/19 | 1 tablet | | | | | 19 8:51 | | | | | | AM PST | | | | +-------+ + +---+---+ | Given | 08/08/19 | 1 tablet | | | | | 19 8:35 | | | | | | AM PST | | | | +-------+ + +---+---+ +---+---+ | | | +---+---+ + +-------+ +---------+---+ + | hqjeqsy-qowevvjkia-dhblmemrb | Given | 08/10/19 | 0.5 mLs | | Deltoid- | | pertussis (ADACEL, Tdap) vaccine | | 19 11:20 | | | Left | | injection 0.5 mL 0.5 mL, | | AM PST | | | | | Intramuscular, ONE TIME VACCINE, | | | | | | | 08/08/18 at 0300, For 1 dose, | | | | | | | If patient has never received | | | | | | | TDaP or unknown status, | | | | | | | administer vaccine by day of | | | | | | | discharge, otherwise nurse to | | | | | | | discontinue order., | | | | | | + +-------+ +---------+---+ + +---+---+ | | | +---+---+ documented in this encounter
--- OUTSIDE RECORDS SUMMARY | ~2019-11-19 | XMS | Encounter Summary ---
Demographics + + + | Address | [address] | | | [place] [address] | + + + | Home Phone | | + + + | Preferred Language | Unknown | + + + | Marital Status | Single | + + + | Moravian Affiliation | 1013 | + + + | Race | Unknown | + + + | Ethnic Group | Unknown | + + + Author + + + | Author | [facility] | | | and [place] | + + + | Organization | [facility] | | | and [place] | + + + | Address | Unknown | + + + | Phone | Unavailable | + + + Support + + + + + | Name | Relationship | Address | Phone | + + + + + | Mark Chatterjee | ECON | [place] [address] | | | | | Unknown | | + + + + + | Jean Claude Chatterjee | ECON | Unknown | | + + + + + Care Team Providers + +------+ + | Care Security Researcher Name | Role | Phone | + [...] | +--------+ + + + + | 06/12/ | Routine | [facility] | Caty Schuster | GA: [id number] | | 2018 | | [facility] | [address] | | | | | [address] | [address] | | | | | [address], | [facility] [place], [place] | | | | | [place] [address] | [address] | | | | | [phone] | [phone] | | | | | | | [...] + + + | Blood Pressure | 123/73 | 06/12/2018 1:52 PM | | | | | PST [...] Weight | 66.7 kg (147 lb) | 06/12/2018 1:52 PM | | | | | PST | | + + + + + | Height | - | - | | + + + + + | Body Mass Index | 24.09 | 01/27/2018 2:04 PM | | | | | PDT | | + + + + + documented in this encounter Progress Notes Caty Schuster DO - 06/12/2018 2:00 PM PSTPatient transferred [facility] from [facility] The FOB will be leaving for service and she will not have help there and so she is going to move here to be with family. PN information reviewed. Patient denies LOF or VB. She denies contractions. She is feeling good movement. She tried drinking some sugar water but got nauseated so we will do fasting sugars and A1c along with CBC. She would like those done in [place]. documented in this encounter Plan of Treatment [...]
--- OUTSIDE RECORDS SUMMARY | ~2019-11-19 | XMS | Encounter Summary ---
Demographics + + + | Address | [address] | | | [place] [address] | + + + | Home Phone | | + + + | Preferred Language | Unknown | + + + | Marital Status | Single | + + + | Mu-Ism Affiliation | 1013 | + + + | Race | Unknown | + + + | Ethnic Group | Unknown | + + + Author + + + | Author | [facility] | | | and [place] | + + + | Organization | [facility] | | | and [place] | + + + | Address | Unknown | + + + | Phone | Unavailable | + + + Support + + + + + | Name | Relationship | Address | Phone | + + + + + | Mark Chatterjee | ECON | [place] [address] | | | | | Unknown | | + + + + + | Jean Claude Chatterjee | ECON | Unknown | | + + + + + Care Team Providers + +------+ + | Care President And Chief Executive Officer Name | Role | Phone | [...] GA: 34w4d | | 2019 | | [facility] | [address] | | | | | [address] | [address] | | | | | [address]NA [address]ARCIA, | [facility], [place] | | | | | [place] [address] | [address] | | | | | [phone] | [phone] | | | | | | | [...] Problems: Patient transferred at 28 wks from [place]. Had positive chlamydia at 30 weeks as [...] reviewed it is uncommon. Wants induction [facility] 10th. Will start acyclovir now.Electronically signed by [...] | mL/min/1.73m2 | [facility] | | | [facility] | RATE,ESTIMATED | | HOSPITAL | | | | mL/min/1.32i6Rlby than | | LABORATORY | | | [...] + + | [facility] | [address] | [place] | [phone] | | HOSPITAL LABORATORY | | [address] | | + + + + + [...] + + + | REFERENCE LAB | [address] | [place], [place] | | | [facility] - | | [address] | | | NICOLE VALDEZ | | [...]
--- OUTSIDE RECORDS SUMMARY | ~2019-11-19 | XMS | Encounter Summary ---
Demographics + + + | Address | [address] | | | [place] [address] | + + + | Home Phone [...] Mark Chatterjee | ECON | [place] [address] | | | | | Unknown | | + + + + + | Jean Claude Chatterjee | ECON | Unknown | | + + + + + Care Team Providers + +------+ + | Care Crayon Sorting Machine Feeder Name | Role | Phone | + [...] GA: 28w5d | | 2018 | | [facility] | [address] | | | | | [address] | [address] | | | | | DR TIANNA GARCIA, | [facility], [place] | | | | | [place] [address] | [address] | | | | | [phone] | [phone] | | | | | | | [...] 06/12/2018 2:00 PM PSTPatient transferred care [facility] The FOB will be leaving for [...] CBC. She would like those done in [employer]. documented in this encounter Plan of Treatment [...]
--- OUTSIDE RECORDS SUMMARY | ~2019-11-19 | XMS | Encounter Summary ---
Demographics + + + | Address | [address] | | | [place] [address] | + + + | Home Phone [...] + + + | Author | [facility] | | | and [place] | + + + | Organization | [facility] | | | and [place] | + + + | Address | Unknown | + + + | Phone | Unavailable | + + + Support + + + + + | Name | Relationship | Address | Phone | + + + + + | Mark Chatterjee | ECON | [place] [address] | | | | | Unknown | | + + + + + | Jean Claude Chatterjee | ECON | Unknown | | + + + + + Care Team Providers + +------+ + | Care Microbiology Teacher Name | Role | Phone | + +------+ + | Leroy Dougherty NP | PCP | | + +------+ + Reason for Visit + + + | Reason | Comments | + + + | Advice Only | | + + + Encounter Details +--------+ + + + + | Date | Type | Department | Care Team | Description | +--------+ + + + + | 12/10/ | Telephone | [place] | Howard Lewis | Advice Only | | 2019 | | [facility] | MD [address] | | | | | [address] | [address] | | | | | DR TIANNA GARCIA, | [facility], [place] | | | | | [place] [address] | [address] | | | | | [phone] | [phone] | | | | | | | [...]
--- OUTSIDE RECORDS SUMMARY | ~2019-11-19 | XMS | Encounter Summary ---
Demographics + + + | Address | [address] | | | [place] [address] | + + + | Home Phone | | + + + | Preferred Language | Unknown | + + + | Marital Status | Single | + + + | Yazidism Affiliation | 1013 | + + + | Race | Unknown | + + + | Ethnic Group | Unknown | + + + Author + + + | Author | [facility] | | | and [place] | + + + | Organization | [facility] | | | and [place] | + + + | Address | Unknown | + + + | Phone | Unavailable | + + + Support + + + + + | Name | Relationship | Address | Phone | + + + + + | Mark Chatterjee | ECON | [place] [address] | | | | | Unknown | | + + + + + | Jean Claude Chatterjee | ECON | Unknown | | + + + + + Care Team Providers + +------+ + | Care Human Services Assistant Name | Role | Phone | + +------+ + | Leroy Dougherty NP | PCP | | + +------+ + Encounter Details +--------+ + + + + | Date | Type | Department | Care Team | Description | +--------+ + + + + | 07/01/ | Abstract | [place] | Caitlin Santana, | | | 2018 | | [facility] | TEACHER AIDE | | | | | CL[address] | | | | | | DR [address]NA [address]ARCIA, | | | | | | [place] [address] | | | | | | [phone] | | | +--------+ + + + [...]
--- OUTSIDE RECORDS SUMMARY | ~2019-11-19 | XMS | Encounter Summary ---
Demographics + + + | Address | [address] | | | [place] [address] | + + + | Home Phone | | + + + | Preferred Language | Unknown | + + + | Marital Status | Single | + + + | Yazidism Affiliation | 1013 | + + + | Race | Unknown | + + + | Ethnic Group | Unknown | + + + Author + + + | Author | [facility] | | | and [place] | + + + | Organization | [facility] | | | and [place] | + + + | Address | Unknown | + + + | Phone | Unavailable | + + + Support + + + + + | Name | Relationship | Address | Phone | + + + + + | Mark Chatterjee | ECON | [place] [address] | | | | | Unknown | | + + + + + | Jean Claude Chatterjee | ECON | Unknown | | + + + + + Care Team Providers + +------+ + | Care Tuber Machine Operator Helper Name | Role | Phone | + [...] GA: 30w4d | | 2019 | | [facility] | [address] | | | | | [address] | [address] | | | | | DR TIANNA GARCIA, | [facility], [place] | | | | | [place] [address] | [address] | | | | | [phone] | [phone] | | | | | | | [...] encounter Progress Notes Caitlin Santana LPN - 06/25/2018 2:45 PM PSTCalled and talked with Kristyn and britney moe that she has chlamydia and needs to be treated actually with zithromax and sent that to Denis [facility]quez in [place] and her boyfriend needs to be treated as well and can go to the [facility] er Dr. Schuster. hi Caty soto, [...] 06/26/2018) Patient transferred at 28 wks from [place]. Had positive chlamydia at 30 weeks as [...] partner treated. He can be tested at [facility]. They are not currently having intercourse. The [...] Ph.D., | | | | | | Hr Representative | | | | | | [address] [facility] | | | | | | [place] [address] | | | | | | CLIA #[id number] | | | | + + + [...] + + + | REFERENCE LAB | [address] | [place], [place] | | | [facility] - | | [address] | | | FAVIO VALDEZ | | [...] | | | | | test use 238[address] (C. | | | | | | trachomatis) [place] [address] | | | | | | (N. gonorrhoeae). | | | | + + + + + + | Neisseria | Not detectedComment: | Not detected | REFERENCE | | | gonorrhoeae | This test was performed | | LAB [facility] | | | rRNA PCR | using the [facility] | | [facility] | | | | COMBO2(R) Assay | | - RENICK | | | | (GEN-PROBE(R)). The | [...] Diagnostics | | | | | | [facility] | | | | | | Aimee Gonzales M.D., | | | | | | Ph.D., Laboratory | | | | | | Director [id number] | | | | | | [facility] | | | | | | [place] [address] | | | | | | [place] #[id number] | | | | + + + [...] + + + | REFERENCE LAB | [address] [facility] [address] | [place], [place] | | | [facility] - | | [address] | | | [place] [address]DEZ | | [...]
--- OUTSIDE RECORDS SUMMARY | ~2019-11-19 | XMS | Encounter Summary ---
Demographics + + + | Address | [address] | | | [place] [address] | + + + | Home Phone | | + + + | Preferred Language | Unknown | + + + | Marital Status | Single | + + + | Muslim Affiliation | 1013 | + + + | Race | Unknown | + + + | Ethnic Group | Unknown | + + + Author + + + | Author | [facility] | | | and [place] | + + + | Organization | [facility] | | | and [place] | + + + | Address | Unknown | + + + | Phone | Unavailable | + + + Support + + + + + | Name | Relationship | Address | Phone | + + + + + | Mark Chatterjee | ECON | [place] [address] | | | | | Unknown | | + + + + + | Jean Claude Chatterjee | ECON | Unknown | | + + + + + Care Team Providers + +------+ + | Care Acquisition Professional Name | Role | Phone | + [...] | 2019 | | [facility] | WELFARE ELIGIBILITY WORKER | affecting | | | | [address] | | in third trimester | | | | DR [address]IANNA [address]ARCIA, | | (Primary Dx) | | | | [place] [address] | | | | | | [phone] | | | +--------+ + + + [...]
--- OUTSIDE RECORDS SUMMARY | ~2019-11-19 | XMS | Encounter Summary ---
Demographics + + + | Address | [address] | | | [place] [address] | + + + | Home Phone | | + + + | Preferred Language | Unknown | + + + | Marital Status | Single | + + + | Hindu Affiliation | 1013 | + + + | Race | Unknown | + + + | Ethnic Group | Unknown | + + + Author + + + | Author | [facility] | | | and [place] | + + + | Organization | [facility] | | | and [place] | + + + | Address | Unknown | + + + | Phone | Unavailable | + + + Support + + + + + | Name | Relationship | Address | Phone | + + + + + | Mark Chatterjee | ECON | [place] [address] | | | | | Unknown | | + + + + + | Jean Claude Chatterjee | ECON | Unknown | | + + + + + Care Team Providers + +------+ + | Care Aboriginal Community Council Member Name | Role | Phone | + +------+ + | Leroy Dougherty NP | PCP | | + +------+ + Encounter Details +--------+ + + + + | Date | Type | Department | Care Team | Description | +--------+ + + + + | 07/01/ | Abstract | [facility] | Caitlin Santana, | | | 2018 | | [facility] | SOFTWARE ARCHITECT | | | | | CLIN[address] | | | | | | DR [address]NA [address]ARCIA, | | | | | | [place] [address] | | | | | | [phone] | | | +--------+ + + + [...]
--- OUTSIDE RECORDS SUMMARY | ~2019-11-19 | XMS | Encounter Summary ---
Demographics + + + | Address | [address] | | | [place] [address] | + + + | Home Phone | | + + + | Preferred Language | Unknown | + + + | Marital Status | Single | + + + | Yazidism Affiliation | 1013 | + + + | Race | Unknown | + + + | Ethnic Group | Unknown | + + + Author + + + | Author | [facility] | | | and [place] | + + + | Organization | [facility] | | | and [place] | + + + | Address | Unknown | + + + | Phone | Unavailable | + + + Support + + + + + | Name | Relationship | Address | Phone | + + + + + | Mark Chatterjee | ECON | [place] [address] | | | | | Unknown | | + + + + + | Jean Claude Chatterjee | ECON | Unknown | | + + + + + Care Team Providers + +------+ + | Care Filter Tank Tender Helper Head Name | Role | Phone | + [...] | 2019 | | [facility] | APPLIANCE TECHNICIAN | of | | | | CL[address] | | (Primary Dx) | | | | DR [address]NA [address]ARCIA, | | | | | | [place] [address] | | | | | | [phone] | | | +--------+ + + + [...] the | | | | | | [place] Diabetes | | | | | | [...] Testing Performed at: [facility] [place] CLIA: [id number] - [address] | REFERENCE LAB | | [place] [address] | [facility] | + + + + + + + + | Performing | Address | City/State/Zipcode | Phone Number | | Organization | | | | + + + + + | REFERENCE LAB | [address] | [place] | [phone] | | [facility] | | [address] | | + + + + + | REFERENCE LAB | [address] | [place] | [phone] | | [facility] | | [address] | | + + + + + [...] Testing Performed at: [facility] CLIA: [id number] - [address] | REFERENCE LAB | | [place] [address] | [facility] | + + + + + + + + | Performing | Address | City/State/Zipcode | Phone Number | | Organization | | | | + + + + + | REFERENCE LAB | [address] | [place], [place] | [phone] | | [facility] | | [address] | | + + + + + | REFERENCE LAB | [address] | [place], [place] | [phone] | | [facility] | | [address] | | + + + + + documented in this encounter Visit Diagnoses + + | Diagnosis | + + | 28 weeks gestation of - Primary state, incidental | + + documented in this encounter"
--- OUTSIDE RECORDS SUMMARY | ~2019-11-19 | XMS | Encounter Summary ---
Demographics + + + | Address | [address] | | | [place] [address] | + + + | Home Phone [...] Mark Chatterjee | ECON | [place] [address] | | | | | Unknown | | + + + + + | Jean Claude Chatterjee | ECON | Unknown | | + + + + + Care Team Providers + +------+ + | Care Senior Php Developer Name | Role | Phone | + [...] [place] | | | 2019 | | [address] | [address] | | | | | [phone] | [phone] | | | | | | | [...]
--- OUTSIDE RECORDS SUMMARY | ~2019-11-19 | XMS | Encounter Summary ---
Demographics + + + | Address | [address] | | | [place] [address] | + + + | Home Phone | | + + + | Preferred Language | Unknown | + + + | Marital Status | Single | + + + | Restoration Affiliation | 1013 | + + + | Race | Unknown | + + + | Ethnic Group | Unknown | + + + Author + + + | Author | [facility] | | | and [place] | + + + | Organization | [facility] | | | and [place] | + + + | Address | Unknown | + + + | Phone | Unavailable | + + + Support + + + + + | Name | Relationship | Address | Phone | + + + + + | Mark Chatterjee | ECON | [place] [address] | | | | | Unknown | | + + + + + | Jean Claude Chatterjee | ECON | Unknown | | + + + + + Care Team Providers + +------+ + | Care Head Gauge Unit Operator Name | Role | Phone | [...] [place] | | | 2019 | | [address] | [address] | | | | | [phone] | [phone] | | | | | | | [...] 08/10/2018 Attending Clinician: Caty Schuster, * Primary Rides Attendant: Leroy Dougherty NP Discharge Diagnoses: Principal Problem: [...] through Care Everywhere.Caring for Sore s, Herpes: (Turkmen)documented in this encounter Medications at Time of [...] 7:04 Result Value Ref Range Product Code U6304E18 UNIT # [id number] UNIT ABO O UNIT RH POS Unit Status Crossmatched Blood Product ABORh OPOS Blood Product Expiration Date and Time Product Blood Type Barcode 5100 Product Code W1143R22 UNIT # [id number] UNIT ABO O UNIT RH POS Unit Status Crossmatched Blood Product ABORh OPOS Blood Product Expiration Date and Time 081980122370 Product Blood Type Barcode 5100 Product Code O8876B70 UNIT # [id number] UNIT ABO O UNIT RH POS Unit [...] + + | [facility] | [address] | [place] | [phone] | | HOSPITAL LABORATORY | | [address] | | + + + + + PRODUCT: Plasma (08/09/2018 2:14 PM PST) + + + + + + | Component | Value | Ref Range | Performed | Pathologist | | | | | At | Signature | + + + + + + | Product | [id number] | | [facility] | | | Code | | | [facility] | | | | | | HOSPITAL | | | | | | BLOOD BANK | | + + + + + + | UNIT # | [id number] | | [facility] | | | | [...] + + + + | Blood | [id number] | | [facility] | | | Product [...] + + | [facility] | [address] | [place] | [phone] | | HOSPITAL BLOOD BANK | | [address] | | + + + + + Red Blood Cells (PRBC) - Crossmatch (08/09/2018 12:35 PM PST) + + + + + + | Component | Value | Ref Range | Performed | Pathologist | | | | | At | Signature | + + + + + + | Product | [id number] | | [facility] | | | Code | | | [facility] | | | | | | [facility]OSP[facility] | | | | | | BLOOD BANK | | + + + + + + | UNIT # | [id number] | | [facility] | | | | [...] + + + + | Blood | [id number] | | [facility] | | | Product [...] + + + + | Product | [id number] | | [facility] | | | Code | | | [facility] | | | | | | [facility] | | | | | | BLOOD BANK | | + + + + + + | UNIT # | [id number] | | [facility] | | | | [...] + + + + | Blood | [id number] | | [facility] | | | Product [...] + + + + | Product | [id number] | | [facility] | | | Code | | | [facility] | | | | | | [facility]OS[facility] | | | | | | BLOOD BANK | | + + + + + + | UNIT # | [id number] | | [facility] | | | | [...] + + + + | Blood | [id number] | | [facility] | | | Product [...] + + | [facility] | [address] | [place] | [phone] | | HOSPITAL BLOOD BANK | | [address] | | + + + + + [...] | 32.0 | 32.0 - 36.9 | [facility] | | | | | g/dL | [...] + + | [facility] | [address] | [place], [place] | [phone] | | HOSPITAL LABORATORY | | [address] | | + + + + + [...] + + | [facility] | [address] | [place] | [phone] | | HOSPITAL LABORATORY | | [address] | | + + + + + [...] | 0.00 | 0.00 - 0.70 | MALBE | | | Eosinophils | | K/uL [...] + + | [facility] | [address] | [place] | [phone] | | HOSPITAL LABORATORY | | [address] | | + + + + + [...] DESCRIPTION: Received fresh in a container labeled "Kristyn Kate | | | Von, " is [...] trivascular architecture on cut surfaces, and a junior sales representative section | | | of [...] | semitranslucent, with no lesions identified. A junior sales representative | | | section of [...] | masses or lesions are grossly identified. Alum Plant Operator | | | sections are submitted as follows: (A2) - placenta with area of | | | subchorionic hemorrhage near umbilical cord insertion site, (A3) | | | - junior sales representative section of placenta near cord insertion site, (A4) - | | | random placental disk. NRT:cml PERFORMING LABORATORY: The | | | technical component was performed by [facility] | | | [place] [address] (Medical | | | Director: Mark Blunt MD; CLIA# [id number]). Professional | | | interpretation was performed by [facility] | | | [place] [address] (Medical | | | Director: Mark Blunt MD; CLIA# [id number]). | | | Diagnostician: Georgiana Santana MD [...] Diagnostics | | | | | | [facility] | | | | | | Aimee Gonzales M.D., | | | | | | Ph.D., Laboratory | | | | | | Director [address] | | | | | | [facility] | | | | | | [place] [address] | | | | | | TYREE #[id number] | | | | + + + [...] + + + | REFERENCE LAB | [address] | [place], [place] | | | [facility] - | | [address] | | | [facility] | | [...] + + | [facility] | [address] | [place] | [phone] | | HOSPITAL BLOOD BANK | | [address] | | + + + + + [...] + + | [facility] | [address] | [place] | [phone] | | HOSPITAL BLOOD BANK | | [address] | | + + + + + [...] + + | [facility] | [address] | [place] | [phone] | | HOSPITAL LABORATORY | | [address] | | + + + + + [...] + + | [facility] | [address] | [place] | [phone] | | HOSPITAL LABORATORY | | [address] | | + + + + + [...] | | | | | | hydrocodone-acetaminophen ([place]) | | | | | | | [...] | +---+---+ + +-------+ +---------+---+ + | uvqlqre-kludmyfayg-lnqbxczbw | Given | 08/10/19 | 0.5 mLs [...]
--- OUTSIDE RECORDS SUMMARY | ~2019-11-19 | XMS | Encounter Summary ---
Demographics + + + | Address | [address] | | | [place] [address] | + + + | Home Phone | | + + + | Preferred Language | Unknown | + + + | Marital Status | Single | + + + | Mandaen Affiliation | 1013 | + + + | Race | Unknown | + + + | Ethnic Group | Unknown | + + + Author + + + | Author | [facility] | | | and [place] | + + + | Organization | [facility] | | | and [place] | + + + | Address | Unknown | + + + | Phone | Unavailable | + + + Support + + + + + | Name | Relationship | Address | Phone | + + + + + | Mark Chatterjee | ECON | [place] [address] | | | | | Unknown | | + + + + + | Jean Claude Chatterjee | ECON | Unknown | | + + + + + Care Team Providers + +------+ + | Care Shop Tech Name | Role | Phone | + +------+ + | Leroy Dougherty NP | PCP | | + +------+ + Encounter Details +--------+ + + + + | Date | Type | Department | Care Team | Description | +--------+ + + + + | 08/11/ | Clinical | [facility] | Caty Schuster | Blood pressure check | | 2019 | Support | [facility] | [address] | (Primary Dx) | | | | CLIN[address] | [address] | | | | | [address], | [place], [place] | | | | | [place] [address] | [address] | | | | | [phone] | | | | | | | | | | | | Jenna Brownlee MD | | | | | | [address] | | | | | | [place], [place] | | | | | | [address] | | | | | | | [...] +---------+ + + | Blood Pressure | 128/79 | 08/11/2018 4:33 PM | | | | | PST | | + +---------+ + + | Pulse | - | - | | + +---------+ + + | Temperature | - | - | | + +---------+ + + | Respiratory Rate | - [...] + documented in this encounter Progress Notes Josie Tuttle CNA - 08/11/2018 4:30 PM PSTPt presented to clinic for an appt with her b suzy on the Peds side. She delivered on 08/08. She mentioned in her babys appt that she starte d to notice swelling in her feet, ankles, and hands. Per Dr. Brownlee placed her on the schedu led for a NO BP check. BP was 128/79. No complaints of dizziness,lighthead, or headache. Pt has a F/U appt 08/17. Per Dr. Brownlee advised to monitor symptoms and keep appt on 08/17. Electro nically signed by Josie Tuttle CNA at 08/11/2018 4:47 PM PSTdocumented in this encounter Plan of Treatment Not on filedocumented as of this encounter Visit Diagnoses + + | Diagnosis | + + | Blood pressure check - Primary Screening for hypertension | + + documented in this encounter"
--- OUTSIDE RECORDS SUMMARY | ~2019-11-19 | XMS | Encounter Summary ---
Demographics + + + | Address | [address] | | | [place] [address] | + + + | Home Phone | | + + + | Preferred Language | Unknown | + + + | Marital Status | Single | + + + | Sabianism Affiliation | 1013 | + + + | Race | Unknown | + + + | Ethnic Group | Unknown | + + + Author + + + | Author | [facility] | | | and [place] | + + + | Organization | [facility] | | | and [place] | + + + | Address | Unknown | + + + | Phone | Unavailable | + + + Support + + + + + | Name | Relationship | Address | Phone | + + + + + | Mark Chatterjee | ECON | [place] [address] | | | | | Unknown | | + + + + + | Jean Claude Chatterjee | ECON | Unknown | | + + + + + Care Team Providers + +------+ + | Care Wind Field Manager Name | Role | Phone | [...] | [address], [place] | [place] [address] | | | | | [address] | [phone] | | | | | [phone] | | | +--------+ + + + [...] attachments cannot be sent through Care Everywhere.Lymphadenopathy (Macedonian)documented in this encounter Plan of Treatment + [...] S?MRN: | | | | | | [id number] | | | [id number] | | | riteri | | | [...] | | | St. | | | [facility] | | | y | | | [...] | | | St. | | | [facility] | | | y | | | Hospit | | | al | | | Patien | | | t is | | | curren | | | tly | | | establ | | | ished | | | with | | | St | | | [facility] | | | y | | | [...] St | | | | | | [facility] | | | y | | | [...] | | | St. | | | [facility] | | | y | | | [...] | | | St. | | | [facility] | | | y H. | | [...] | | LERO[facility] | | | R, SWIMMING PROFESSOR | | | Nurse | | | [...]
--- OUTSIDE RECORDS SUMMARY | ~2019-11-19 | XMS | Encounter Summary ---
Demographics + + + | Address | [address] | | | [place] [address] | + + + | Home Phone | | + + + | Preferred Language | Unknown | + + + | Marital Status | Single | + + + | Pentecostalism Affiliation | 1013 | + + + | Race | Unknown | + + + | Ethnic Group | Unknown | + + + Author + + + | Author | [facility] | | | and [place] | + + + | Organization | [facility] | | | and [place] | + + + | Address | Unknown | + + + | Phone | Unavailable | + + + Support + + + + + | Name | Relationship | Address | Phone | + + + + + | Mark Chatterjee | ECON | [place] [address] | | | | | Unknown | | + + + + + | Jean Claude Chatterjee | ECON | Unknown | | + + + + + Care Team Providers + +------+ + | Care [employer] Principal Name | Role | Phone | + [...] check | | 2019 | Support | [facility] | [address] | (Primary Dx) | | | | [address] | [address] | | | | | [address], | [place], [place] | | | | | [place] [address] | [address] | | | | | [phone] | | | | | | | | | | | | Jenna Brownlee MD | | | | | | [address] | | | | | | [place], [place] | | | | | | [address] | | | | | | | [...]
--- OUTSIDE RECORDS SUMMARY | ~2019-11-19 | XMS | Encounter Summary ---
Demographics + + + | Address | [address] | | | [place] [address] | + + + | Home Phone | | + + + | Preferred Language | Unknown | + + + | Marital Status | Single | + + + | Samaritan Affiliation | 1013 | + + + | Race | Unknown | + + + | Ethnic Group | Unknown | + + + Author + + + | Author | [facility] | | | and [place] | + + + | Organization | [facility] | | | and [place] | + + + | Address | Unknown | + + + | Phone | Unavailable | + + + Support + + + + + | Name | Relationship | Address | Phone | + + + + + | Mark Chatterjee | ECON | [place] [address] | | | | | Unknown | | + + + + + | Jean Claude Chatterjee | ECON | Unknown | | + + + + + Care Team Providers + +------+ + | Care Vp Global Marketing [employer] Name | Role | Phone | + [...] [place] | | | | | [place] [address] | [address] | | | | | [phone] | [phone] | | | | | | | [...] Caty Schuster, - 08/17/2018 2:00 PM Tavia Langford Humble Longoria is a 18 y.o. G 4D8223 premenopausal female here for issues. She is feeling overwhelmed and worr ied. She has some help but the FOB has been at training for [employer]. She is feeling overwhelmed. The baby had to be under lights for increased bilirubin. 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 depression I did speak with Alex [place]. I do feel the patient would benefit from having the FOB here t o help care for the baby as they are waiting to see if the HSV will be an issue and as they are working on the jaundice. I Would encourage the patient to really focus on what is and not what could be. She has an appointment with [facility] on Friday. Return in about 1 [...]
--- OUTSIDE RECORDS SUMMARY | ~2019-11-19 | XMS | Encounter Summary ---
Demographics + + + | Address | [address] | | | [place] [address] | + + + | Home Phone | | + + + | Preferred Language | Unknown | + + + | Marital Status | Single | + + + | Shinto Affiliation | 1013 | + + + | Race | Unknown | + + + | Ethnic Group | Unknown | + + + Author + + + | Author | [facility] | | | and [place] | + + + | Organization | [facility] | | | and [place] | + + + | Address | Unknown | + + + | Phone | Unavailable | + + + Support + + + + + | Name | Relationship | Address | Phone | + + + + + | Mark Chatterjee | ECON | [place] [address] | | | | | Unknown | | + + + + + | Jean Claude Chatterjee | ECON | Unknown | | + + + + + Care Team Providers + +------+ + | Care Manganese Wheeler Name | Role | Phone | + [...] GA: 9w2d | | 2018 | | [facility] | [address] | | | | | CL[address] | [address] | | | | | DR [address]NA GARCIA, | [facility], [place] | | | | | [place] [address] | [address] | | | | | [phone] | | | | | | | [...] | Blood Pressure | 115/63 | 01/27/2018 2:04 PM | | | | | PDT | | + + + + + | Pulse | 108 | 01/27/2018 2:04 PM | | | | | PDT | | + + + + + | Temperature | - | - | | + + + + + | Respiratory Rate | 16 | 01/27/2018 2:04 PM | | | | | PDT | | + + + + + | Oxygen Saturation | - | - | | + + + + + | Inhaled Oxygen | - | - | | | Concentration | | | | + + + + + | Weight | 59.1 kg (130 lb 3.2 | 01/27/2018 2:04 PM | | | | oz) | PDT | | + + + + + | Height | 166.4 cm (5' 5.5") | 01/27/2018 2:04 PM | | | | | PDT | | + + + + + | Body Mass Index | 21.34 | 01/27/2018 2:04 PM | | | | | PDT | | + + + + + documented in this encounter Patient Instructions Patient Instructions Caitlin Santana LPN - 01/27/2018 2:21 PM PDTFormatting of this not e might be different from the original. Healthy Eating [...] water with a slice of lemon or [place]. (These can also help ease an upset [...] salmon, pollock, and catfish Date Last Reviewed: 01/29/201519997560-4690 The [employer]. [address] [place] [address]. All [facility] ts reserved. This information is not intended [...] to increase its absorption. Date Last Reviewed: 01/22/201519999520-1905 [employer]. [address] [place] [address]. All righ ts reserved. This information is not intended as a substitute for professional medical care. Always follow your healthcare professional's instructions. documented in this encounter Progress Notes Caty Schuster, - 01/27/2018 2:00 PM PDTFormatting of this note might be diffe rent from the original. Subjective: Kristyn Longoria is being seen today for her first obstetrical visit. This is a plann ed . FOB is involved. She has actually had an IOB with a provider in [place]. 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 She has family here that she could stay with. I am ok with seeing her occasionally during the , but we do need to make sure that she does not have duplicate care such as labs. S he states she had some labs done already in [place] and so we will get those results. 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 Endocrinology: negative Neurologic: negative Musculoskeletal: negative [...] with positive cardiac activity at 180 bpm. [place]-rump length of 2.57 cm was consistent w ith the patient's dates. EGA by US was 9 2/7 weeks. EDC by US today is 08/29/18 . Limited examination of anatomy was normal. Estimated date of confinement was set as Estimated Date of Delivery: 08/30/18 by LMP correlated with ultrasound . Assessment: at9w2d with Estimated Date of Delivery: 08/30/18 1. , unspecified gestational age She has been seeing provider in [place] and not sure where she will deliver. I am ok wit h seeing her occasionally, but will need to make sure that information is passed between the two clinics because we do not want to duplicate orders. 2. Normal in multigravida in first trimester 3. 12 weeks gestation of Plan: labs apparently had done in [place]. Will have her sign a ROR for those results . Patient is taking vitamins. Problem list reviewed and updated. Discussed options for genetic testing. Patient was undecided Discussed using Vit B6 25 mg or more four times a day with or without 1/2 a unisom tablet. Follow up in 3 weeks. States she has a follow up in [place] in 2 weeks. If she does, she does not need to be seen here. Ctay Schuster DO 01/27/18 documented in this encounter Plan of Treatment Not on filedocumented as of this encounter Procedures + +--------+ + + + | Procedure Name | Priori | Date/Time | Associated Diagnosis | Comments | | | ty | | | | + +--------+ + + + | DIAGNOSTIC REPORT - | | 01/29/2018 | | Results for this | | EXTERNAL SCAN | | 12:00 AM | | procedure are in the | | | | PDT | | results section. | + +--------+ + + + documented in this encounter Results DIAGNOSTIC REPORT - EXTERNAL SCAN (01/29/2018 12:00 AM PDT) + + + | Narrative | Performed At | + + + | Ordered by an | | | unspecified provider. | | + + + documented in this encounter Visit Diagnoses + + | Diagnosis | + + | Normal in multigravida in first trimester - Primary | + + | , unspecified gestational age | + + | 12 weeks gestation of state, incidental | + + documented in this encounter
--- OUTSIDE RECORDS SUMMARY | ~2019-11-19 | XMS | Encounter Summary ---
Demographics + + + | Address | [address] | | | [place] [address] | + + + | Home Phone [...] Mark Chatterjee | ECON | [place] [address] | | | | | Unknown | | + + + + + | Jean Claude Chatterjee | ECON | Unknown | | + + + + + Care Team Providers + +------+ + | Care Slot Machine Key Person Name | Role | Phone | + [...] GA: 9w2d | | 2018 | | [facility] | [address] | | | | | CL[address] | [address] | | | | | DR [address]NA [address]ARC[address], | [facility], [place] | | | | | [place] [address] | [address] | | | | | [phone] | [phone] | | | | | | | [...] water with a slice of lemon or [place]. (These can also help ease an upset [...] salmon, pollock, and catfish Date Last Reviewed: 01/29/201519990252-5297 The [employer]. [address] [place] [address]. All [facility] ts reserved. This information is not intended [...] to increase its absorption. Date Last Reviewed: 01/22/201519996652-0804 [employer]. [address] [place] [address]. All righ ts reserved. This information is [...] had an IOB with a provider in [place]. 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 She has family here that she could stay with. I am ok with seeing her occasionally during the , but we do need to make sure that she does not have duplicate care such as labs. S he states she had some labs done already in [place] and so we will get those results. 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 Endocrinology: negative Neurologic: negative Musculoskeletal: negative [...] with positive cardiac activity at 180 bpm. [place]-rump length of 2.57 cm was consistent w [...] age She has been seeing provider in [place] and not sure where she will deliver. I am ok wit h seeing her occasionally, but will need to make sure that information is passed between the two clinics because we do not want to duplicate orders. 2. Normal in multigravida in first trimester 3. 12 weeks gestation of Plan: labs apparently had done in [place]. Will have her sign a ROR for those results . Patient is taking vitamins. Problem list reviewed and updated. Discussed options for genetic testing. Patient was undecided Discussed using Vit B6 25 mg or more four times a day with or without 1/2 a unisom tablet. Follow up in 3 weeks. States she has a follow up in [place] in 2 weeks. If she does, she does not need to be seen here. Caty Schuster DO 01/27/18 documented in this encounter [...]
--- OUTSIDE RECORDS SUMMARY | ~2019-11-19 | XMS | Encounter Summary ---
Demographics + + + | Address | [address] | | | [place] [address] | + + + | Home Phone | | + + + | Preferred Language | Unknown | + + + | Marital Status | Single | + + + | Baptism Affiliation | 1013 | + + + [...] Mark Chatterjee | ECON | [place] [address] | | | | | Unknown | | + + + + + | Jean Claude Chatterjee | ECON | Unknown | | + + + + + Care Team Providers + +------+ + | Care Fine Dining Server Name | Role | Phone | + [...] ideation | | 2018 | Visit | [facility] | Jovanni POLITICAL REPORTER | (Primary Dx); | | | | [facility] [address] | | Depression, | | | | [facility]TH [facility], | | unspecified | | | | [place] [address] | | depression type; | | | | [phone] | | Anxiety | +--------+---------+ + + [...] crisis team from [facility] due to patient expressing intermittent thoughts of suicide. Jun Toussaint LCSW/crisis counselor came to the clinic and met with the patient in my office. Patient has appointment to establish with [facility] in [facility] [place] next Friday. I reagan lg [facility] and was told patient could make an appointment or walk in to be cami luated for marijuana use/dependence. Patient was notified about this. Subjective: Patient presents today to establish care. [facility] [place], [place]. Last seen 11/19/17 for ER follow-up for suicidal ideation and start ed on Vistaril 25 mg tid prn and referred to behavioral health. She reports that she was ref erred to a counselor at [facility] in [place], [place]. She has not been to [facility] yet as she is waiting for her boyfriend to get back in town to go with her. Her boyfriend will be back in town next week. States she has an appointment with [facility] on 12/10/17. 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 She is requesting a referral to psychiatric [...] cutting at age 11. Previously seen at [facility]. 1. Depression and anxiety - [...]
--- OUTSIDE RECORDS SUMMARY | ~2019-11-19 | XMS | Encounter Summary ---
Demographics + + + | Address | [address] | | | [place] [address] | + + + | Home Phone | | + + + | Preferred Language | Unknown | + + + | Marital Status | Single | + + + | Presybeterian Affiliation | 1013 | + + + | Race | Unknown | + + + | Ethnic Group | Unknown | + + + Author + + + | Author | [facility] | | | and [place] | + + + | Organization | [facility] | | | and [place] | + + + | Address | Unknown | + + + | Phone | Unavailable | + + + Support + + + + + | Name | Relationship | Address | Phone | + + + + + | Mark Chatterjee | ECON | [place] [address] | | | | | Unknown | | + + + + + | Jean Claude Chatterjee | ECON | Unknown | | + + + + + Care Team Providers + +------+ + | Care Refrigeration Manager Name | Role | Phone | [...] | unspecified | | | | [place] [address] | [address] | depression type | | | | [phone] | [phone] | | | | | | | [...] -Urinary: negative Feels weird. Not really painful. -Pump Technician: no - bleeding: none now Neurologic: negative [...]
--- OUTSIDE RECORDS SUMMARY | ~2019-11-19 | XMS | Encounter Summary ---
Demographics + + + | Address | [address] | | | [place] [address] | + + + | Home Phone [...] Mark Chatterjee | ECON | [place] [address] | | | | | Unknown | | + + + + + | Jean Claude Chatterjee | ECON | Unknown | | + + + + + Care Team Providers + +------+ + | Care Section Supervisor Name | Role | Phone | + [...] (PT IN | | 2017 | | [facility] | G, FLAT SORTING MACHINE CLERK | [place] [facility] | | | | MEDICAL CLIN[facility] [address] | | PCP ) | | | | [facility]TH [facility], | | | | | | [place] [address] | | | | | | [phone] | | | +--------+ + + + [...]
--- OUTSIDE RECORDS SUMMARY | ~2019-11-19 | XMS | Encounter Summary ---
Demographics + + + | Address | [address] | | | [place] [address] | + + + | Home Phone [...] Mark Chatterjee | ECON | [place] [address] | | | | | Unknown | | + + + + + | Jean Claude Chatterjee | ECON | Unknown | | + + + + + Care Team Providers + +------+ + | Care Jewel Stripper Name | Role | Phone | + [...] Lab Results | | 2019 | | [facility] | [address] | | | | | CL[address] | [address] | | | | | [address]ARC[address], | [facility], [place] | | | | | [place] [address] | [address] | | | | | [phone] | | | | | | | [...]
--- OUTSIDE RECORDS SUMMARY | ~2019-11-19 | XMS | Encounter Summary ---
Demographics + + + | Address | [address] | | | [place] [address] | + + + | Home Phone | | + + + | Preferred Language | Unknown | + + + | Marital Status | Single | + + + | Nondenominational Affiliation | 1013 | + + + [...] Mark Chatterjee | ECON | [place] [address] | | | | | Unknown | | + + + + + | Jena Claude Chatterjee | ECON | Unknown | | + + + + + Care Team Providers + +------+ + | Care Marshmallow Machine Worker Name | Role | Phone | [...] [place] | | | | | [place] [address] | [address] | | | | | [phone] | [phone] | | | | | | | [...] Humble Longoria is a 18 y.o. G 0F9452 premenopausal female here for issues. She is feeling overwhelmed and worr ied. She has some help but the FOB has been at training for [employer]. She is feeling overwhelmed. 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 She has an appointment with [facility] on Friday. Return in about [...]
--- OUTSIDE RECORDS SUMMARY | ~2019-11-19 | XMS | Encounter Summary ---
Demographics + + + | Address | [address] | | | [place] [address] | + + + | Home Phone | | + + + | Preferred Language | Unknown | + + + | Marital Status | Single | + + + | Restorationism Affiliation | 1013 | + + + | Race | Unknown | + + + | Ethnic Group | Unknown | + + + Author + + + | Author | [facility] | | | and [place] | + + + | Organization | [facility] | | | and [place] | + + + | Address | Unknown | + + + | Phone | Unavailable | + + + Support + + + + + | Name | Relationship | Address | Phone | + + + + + | Mark Chatterjee | ECON | [place] [address] | | | | | Unknown | | + + + + + | Jean Claude Chatterjee | ECON | Unknown | | + + + + + Care Team Providers + +------+ + | Care Vp Public Relations Name | Role | Phone | + [...] 08/07/ | Anesthesia | [facility] | Fiorella Betancourt | | | 2019 | Event | [facility] | D, COMPUTER SYSTEM TECHNICIAN [address] | | | | | DELIVERY [address] | [address] [place] | | | | | [place], [place] | [address] | | | | | [address] | | | | | | [phone] | | | +--------+ + + + + Anesthesia Record + + + + + | Procedure Name | Responsible | Anesthesia Start | Anesthesia Stop Time | | | Anesthesiologist | Time | | + + + + + | NEURAXIAL LABOR | Fiorella Betancourt, | 08/07/181956 | 08/08/18 0128 | | ANALGESIA/ANESTHESIA | COMPUTER SYSTEM TECHNICIAN | | | + + + + [...] 08/10/18 1200 by | | eral | [id number] catheter system; | Dot Coffey RN | [...] 2005 (created via | 08/07/182005 by | 08/08/18257 by | | al/Spi | procedure documentation); no | Fiorella Betancourt, | Dot Coffey RN | | nal | longer indicated, catheter | COMPUTER SYSTEM TECHNICIAN | | | | intact; 08/08/18; 0258 [...] use; | | | | | 08/08/18; 0035 | | | +--------+ + + + [...] Performed At | + + + | Fiorella Betancourt CRNA 08/07/2018 20:19 Neuraxial Procedure | [...] | transparent dressing and tape Performing provider: FIORELLA BETANCOURT | | | D Please see anesthesia record or flowsheet for vital sign | | | documentation and see anesthesia record or MAR for all medication | | | documentation. Electronically Signed by: Fiorella Betancourt CRNA | | | ESig date/time: 08/07/2018 20:18 | | | | | + + + + + | Procedure Note | + + | Fiorella Betancourt CRNA - 08/07/2018 8:18 PM PST [...] procedure: easyDressing: transparent dressing and tapePerforming provider: ASIA, | | FIORELLA DPnadya see anesthesia record or flowsheet for [...] transparent dressing and tape | |Performing provider: FIORELLA BETANCOURT | | | |Please see anesthesia record or flowsheet for vital sign documentation and see anesthesia r ecord or MAR for all medication documentation. | | | |Electronically Signed by: KHANG Campbell date/time: 07/18 20:18 | + + documented [...]
--- OUTSIDE RECORDS SUMMARY | ~2019-11-19 | XMS | Encounter Summary ---
Demographics + + + | Address | [address] | | | [place] [address] | + + + | Home Phone | | + + + | Preferred Language | Unknown | + + + | Marital Status | Single | + + + | Islam Affiliation | 1013 | + + + | Race | Unknown | + + + | Ethnic Group | Unknown | + + + Author + + + | Author | [facility] | | | and [place] | + + + | Organization | [facility] | | | and [place] | + + + | Address | Unknown | + + + | Phone | Unavailable | + + + Support + + + + + | Name | Relationship | Address | Phone | + + + + + | Mark Chatterjee | ECON | [place] [address] | | | | | Unknown | | + + + + + | Jean Claude Chatterjee | ECON | Unknown | | + + + + + Care Team Providers + +------+ + | Care Flatbed Driver Name | Role | Phone | [...] 2017 | | [facility] | G, FRANCHISE SALES MANAGER | [place] [facility] | | | | [facility]ICAL [facility] [address] | | PCP ) | | | | [facility], | | | | | | [place] [address] | | | | | | [phone] | | | +--------+ + + + [...]
--- OUTSIDE RECORDS SUMMARY | ~2019-11-19 | XMS | Encounter Summary ---
Demographics + + + | Address | [address] | | | [place] [address] | + + + | Home Phone | | + + + | Preferred Language | Unknown | + + + | Marital Status | Single | + + + | Synagogue Affiliation | 1013 | + + + [...] Mark Chatterjee | ECON | [place] [address] | | | | | Unknown | | + + + + + | Jean Claude Chatterjee | ECON | Unknown | | + + + + + Care Team Providers + +------+ + | Care Lasting Machine Operator Name | Role | Phone [...] Advice Only | | 2019 | | [facility] | [address] | | | | | CL[address] | [address] | | | | | DR [address]NA [address]ARC[address], | [facility], [place] | | | | | [place] [address] | [address] | | | | | [phone] | | | | | | | [...]
--- OUTSIDE RECORDS SUMMARY | ~2019-11-19 | XMS | Encounter Summary ---
Demographics + + + | Address | [address] | | | [place] [address] | + + + | Home Phone [...] + | Author | [facility] | | | and [place] | + + + | Organization | [facility] | | | and [place] | + + + | Address | Unknown | + + + | Phone | Unavailable | + + + Support + + + + + | Name | Relationship | Address | Phone | + + + + + | Mark Chatterjee | ECON | [place] [address] | | | | | Unknown | | + + + + + | Jean Claude Chatterjee | ECON | Unknown | | + + + + + Care Team Providers + +------+ + | Care Nanoelectronics Engineer Name | Role | Phone | [...] Appointment Question | | 2018 | | [facility] | [address] | | | | | CL[address] | [address] | | | | | DR [address], | [place] | | | | | [place] [address] | [address] | | | | | [phone] | | | | | | | [...]
--- OUTSIDE RECORDS SUMMARY | ~2019-11-19 | XMS | Encounter Summary ---
Demographics + + + | Address | [address] | | | [place] [address] | + + + | Home Phone | | + + + | Preferred Language | Unknown | + + + | Marital Status | Single | + + + | Yazdanism Affiliation | 1013 | + + + [...] Mark Chatterjee | ECON | [place] [address] | | | | | Unknown | | + + + + + | Jean Claude Chatterjee | ECON | Unknown | | + + + + + Care Team Providers + +------+ + | Care Inspector Glass Or Mirror Name | Role | Phone | + [...] GA: [id number] | | 2019 | | [facility] | [address] | | | | | CL[address] | [address] | | | | | DR [address]NA [address], | [facility], [place] | | | | | [place] [address] | [address] | | | | | [phone] | [phone] | | | | | | | [...] Problems: Patient transferred at 28 wks from [place]. Had positive chlamydia at 30 weeks as [...] pH, Urine 7.0 5.0 - 7.0 Specific [place] 1.010 1.003 - 1.030 Protein, Urine 30 [...] pH, Urine 7.0 5.0 - 7.0 Specific [place] 1.005 1.003 - 1.030 Protein, Urine Negative [...] + + | [facility] | [address] | [place] | [phone] | | H[facility] | | [address] | | + + + + + documented in this encounter Visit Diagnoses + + | Diagnosis | + + | 36 weeks gestation of - Primary state, incidental | + + | Normal in multigravida in third trimester | + + documented in this encounter"
--- OUTSIDE RECORDS SUMMARY | ~2019-11-19 | XMS | Encounter Summary ---
Demographics + + + | Address | [address] | | | [place] [address] | + + + | Home Phone [...] + | Author | [facility] | | | and [place] | + + + | Organization | [facility] | | | and [place] | + + + | Address | Unknown | + + + | Phone | Unavailable | + + + Support + + + + + | Name | Relationship | Address | Phone | + + + + + | Mark Chatterjee | ECON | [place] [address] | | | | | Unknown | | + + + + + | Jean Claude Chatterjee | ECON | Unknown | | + + + + + Care Team Providers + +------+ + | Care Blunger Loader Name | Role | Phone | + +------+ + | Leroy Dougherty NP | PCP | | + +------+ + Reason for Visit +---------+ + | Reason | Comments | +---------+ + | Results | | +---------+ + Encounter Details +--------+ + + + + | Date | Type | Department | Care Team | Description | +--------+ + + + + | 07/30/ | Telephone | [facility] [facility] | Caty Schuster | Results | | 2019 | | [facility] | [address] | | | | | CL[address] | [address] | | | | | [address], | [place], [place] | | | | | [place] [address] | [address] | | | | | [phone] | [phone] | | | | | | | [...]
--- OUTSIDE RECORDS SUMMARY | ~2019-11-19 | XMS | Encounter Summary ---
Demographics + + + | Address | [address] | | | [place] [address] | + + + | Home Phone | | + + + | Preferred Language | Unknown | + + + | Marital Status | Single | + + + | Temple Affiliation | 1013 | + + + | Race | Unknown | + + + | Ethnic Group | Unknown | + + + Author + + + | Author | [facility] | | | and [place] | + + + | Organization | [facility] | | | and [place] | + + + | Address | Unknown | + + + | Phone | Unavailable | + + + Support + + + + + | Name | Relationship | Address | Phone | + + + + + | Mark Chatterjee | ECON | [place] [address] | | | | | Unknown | | + + + + + | Jean Claude Chatterjee | ECON | Unknown | | + + + + + Care Team Providers + +------+ + | Care Putty And Caulking Supervisor Name | Role | Phone | [...] | Results | | 2019 | | [facility] | [address] | | | | | CL[address] | [address] | | | | | DR [address]NA [address], | [place], [place] | | | | | [place] [address] | [address] | | | | | [phone] | [phone] | | | | | | | [...]
--- OUTSIDE RECORDS SUMMARY | ~2019-11-19 | XMS | Encounter Summary ---
Demographics + + + | Address | [address] | | | [place] [address] | + + + | Home Phone | | + + + | Preferred Language | Unknown | + + + | Marital Status | Single | + + + | Scientology Affiliation | 1013 | + + + | Race | Unknown | + + + | Ethnic Group | Unknown | + + + Author + + + | Author | [facility] | | | and [place] | + + + | Organization | [facility] | | | and [place] | + + + | Address | Unknown | + + + | Phone | Unavailable | + + + Support + + + + + | Name | Relationship | Address | Phone | + + + + + | Mark Chatterjee | ECON | [place] [address] | | | | | Unknown | | + + + + + | Jean Claude Chatterjee | ECON | Unknown | | + + + + + Care Team Providers + +------+ + | Care Area Captain Name | Role | Phone | + [...] Event | [facility]OSP[facility] | D, CD MIXER HELPER [address] | | | | | DELIVERY [address] | [address] [place] | | | | | [place], [place] | [address] | | | | | [address] | | | | | | [phone] | | | +--------+ + + + + Anesthesia Record + + + + + | Procedure Name | Responsible | Anesthesia Start | Anesthesia Stop Time | | | Anesthesiologist | Time | | + + + + + | NEURAXIAL LABOR | Fiorella Betancourt, | [birth year] | 08/08/18 0128 | | ANALGESIA/ANESTHESIA | CD MIXER HELPER | | | + + + + [...] 08/10/18 1200 by | | eral | ovje-xdw-[id number] catheter system; | Dot Coffey RN | [...] | nal | longer indicated, catheter | CD MIXER HELPER | | | | intact; 08/08/18; 0258 [...]
[~2019-11-19 23:06] MED LIST changes: +ALEVE220 MG PO; +INDOMETHACIN50 MG PO
--- OUTSIDE RECORDS SUMMARY | 2019-11-19 23:10 | XMS ---
PreManage Notification: BRIGITTE IVY Security Staff Counselor Events No recent Security Events currently on file CRITERIA MET - [facility] PROVIDERS RAYMOND RASHEED Nurse Practitioner: Family 12/29/2017-Current PHONE: [phone] IDA [facility] [place] Current PHONE: [phone] PENNY [place] 03/11/2018-Current PHONE: [phone] Guidelines Source: [facility] [place] Guidelines Date: 04/12/2019 Care Coordination: Receives mental health services with [facility].\T\nbsp; Please contact [facility] for any mental health concerns.\T\nbsp; [facility]: [phone]\ T\nbsp; Brooke: [phone]. Care History Medical/Surgical 03/11/2018 [facility] - CHW SPOKE WITH PATIENT ABOUT ED UTILIZATION. - CHW DISCUSSED THE IMPORTANCE OF FOLLOW UP CARE WITH OBGYN DR ROCHA. - CHW DISCUSSED REFERRAL FOR [facility] WHICH HELPS WITH FIRST TIME MOMS/. PATIENT DECLINED THE REFERRAL. - PATIENT STATED SHE WILL FOLLOW UP WITH HER OBGYN AND WILL SEEK NON EMERGENT MEDICAL CONCERNS THROUGH THE WALK IN CLINIC. 12/29/2017 [facility] - Patient is currently established with [facility]. If patient is seen in the ED during business hours. Please contact CHWs at [facility] at [phone]. Care Recommendation: This patient has had 5 or more Emergency Department visits in the last 12 months.\T\nbsp; Patient requires education on the scope and purpose of the ED as an acute care provider not a Primary Care Provider and should not be utilized for chronic conditions.\T\nbsp; If patient returns to ED please contact [facility] Corinna Armendariz at [phone]. These are guidelines and the provider should exercise clinical judgment when providing care. 12/08/2017 [facility] Care Recommendation: \T\nbsp;Please refer patient to [facility] for non emergent visits and follow care. Patient is established with [facility]. This patient has had 5 or more Emergency Department visits in the last 12 months.\T\nbsp; Patient requires education on the scope and purpose of the ED as an acute care provider not a Primary Care Provider and should not be utilized for chronic conditions.\T\nbsp; If patient returns to ED please contact [facility] Corinna Armendariz at [phone]. These are guidelines and the provider should exercise clinical judgment when providing care. E.D. VISIT COUNT (12 MO.) [address] [facility] [place] [facility] [place] 2 L[place]SEY [place] TOTAL 5 NOTE: Visits indicate total known visits. ED/UCC VISIT TRACKING (12 MO.) 11/19/2019 23:07 [place] TYPE: Emergency COMPLAINT: - VAGINAL BLEEDING 08/23/2019 16:34 [place] TYPE: Emergency DIAGNOSES: - FEVER, COUGH - Fever, unspecified - Hematuria, unspecified - Urinary tract infection, site not specified 08/05/2019 16:38 [facility] [place] TYPE: Emergency DIAGNOSES: - Abnormal uterine and vaginal bleeding, unspecified - Vaginal Bleeding 04/11/2019 16:56 [place] TYPE: Emergency COMPLAINT: - LACERATION DIAGNOSES: - Disease of tongue, unspecified - Personal history of nicotine dependence 03/26/2019 15:59 [place]io [place] TYPE: Emergency DIAGNOSES: - Localized enlarged lymph nodes - Pelvic Pain INPATIENT VISIT TRACKING (12 MO.) No inpatient visits to display in this time frame [email or web address]
== END 2019-11-20 00:40 | disposition home or self-care (01) ==
LOC: ED 23:06
DX: O26.851 Spotting complicating pregnancy, first trimester (principal); O99.341 Other mental disorders complicating pregnancy, first trimester; F41.9 Anxiety disorder, unspecified; F32.9 Major depressive disorder, single episode, unspecified; Z87.891 Personal history of nicotine dependence; Z3A.10 10 weeks gestation of pregnancy
CPT/HCPCS: 84702; 85025; 99284

== ENCOUNTER 2020-03-22 17:29 | Emergency (ER) | payer MEDICAID ==
[~2020-03-22] VITALS: Ht 165.1 cm; Wt 66.7 kg
--- OUTSIDE RECORDS SUMMARY | ~2020-03-22 | XMS | Encounter Summary ---
Demographics + + + | Address | [address] | | | [place] [address] | + + + | Home Phone | | + + + | Preferred Language | Unknown | + + + | Marital Status | Single | + + + | Scientologist Affiliation | 1013 | + + + | Race | White | + + + | Ethnic Group | Not or | + + + Author + + + | Author | [facility] | | | and [place] | + + + | Organization | [facility] | | | and [place] | + + + | Address | Unknown | + + + | Phone | Unavailable | + + + Support + + + + + | Name | Relationship | Address | Phone | + + + + + | Mark Chatterjee | ECON | [place] [address] | | | | | Unknown | | + + + + + | Jean Claude Chatterjee | ECON | Unknown | | + + + + + Care Team Providers + +------+ + | Care Assistant Manager Quality Management Name | Role | Phone | + +------+ + | Leroy Dougherty NP | PCP | | + +------+ + Reason for Visit Auth/Cert +--------+--------+ + + + + | Status | Reason | Specialty | Diagnoses / | Referred By | Referred To | | | | | Procedures | Contact | Contact | +--------+--------+ + + + + | | | | | | | +--------+--------+ + + + + Encounter Details +--------+ + + + + | Date | Type | Department | Care Team | Description | +--------+ + + + + | 08/07/ | Anesthesia | [facility] | Pauly Betancourt | | | 2019 | Event | [facility]OSP[facility] | D, COMPONENT LAB TECH [address] | | | | | DELIVERY [address] | [address] [place] | | | | | [place], [place] | [address] | | | | | [address] | | | | | | [phone] | | | +--------+ + + + + Anesthesia Record + + + + + | Procedure Name | Responsible | Anesthesia Start | Anesthesia Stop Time | | | Anesthesiologist | Time | | + + + + + | NEURAXIAL LABOR | Pauly Betancourt, | [birth year] | 08/08/18 0128 | | ANALGESIA/ANESTHESIA | COMPONENT LAB TECH | | | + + + + + +----+---+ + + | Da | T | Event | Comment | | te | i | | | | | m | | | | | e | | | +----+---+ + + | 02 | 1 | | | | /2 | 9 | | | | 2/ | 5 | | | | 20 | 5 | | | | 19 | | | | +----+---+ + + | | 1 | An Start | Reassessment prior to anesthesia induction/procedure. | | | 9 | | | | | 5 | | | | | 7 | | | +----+---+ + + | | 1 | Pre-Procedu | | | | 9 | ral Timeout | | | | 5 | Completed | | | | 7 | | | +----+---+ + + | | 1 | Block Start | | | | 9 | | | | | 5 | | | | | 8 | | | +----+---+ + + | | 2 | Epi/spinal | | | | 0 | Stop | | | | 0 | | | | | 7 | | | +----+---+ + + | | 2 | Test Dose | | | | 0 | | | | | 0 | | | | | 7 | | | +----+---+ + + | | 2 | Epidural | | | | 0 | Bolus | | | | 1 | | | | | 2 | | | +----+---+ + + | | 2 | Epidural | | | | 0 | Infusion | | | | 2 | Started | | | | 2 | | | +----+---+ + + | 02 | 0 | Baby Deliv | | | /2 | 1 | | | | 3/ | 2 | | | | 20 | 8 | | | | 19 | | | | +----+---+ + + | | 0 | An Stop | Patient handed off to recovery nurse. | | | 2 | | | | | 8 | | | +----+---+ + + +------+ | Meds | +------+ + +---------+ | Name | Total | + +---------+ | lidocaine 1.5%-EPINEPHrine | 3 mL | | 1:200,000 (PF) injection | | + +---------+ | bupivacaine 0.25% (Epidural) | 8 mL | + +---------+ | fentaNYL 2 mcg/mL and ropivacaine | 61.4 mL | | 0.125% in saline EPIDURAL | | | (premix) | | + +---------+ + + | No agents on file. | + + + + | No blood administrations on file. | + + +--------+ + + + | Type | Details | Placement | Removal | +--------+ + + + | Periph | 08/07/18; 1929; Left; Upper Arm; | 08/07/181929 by | 08/10/18 1200 by | | eral | toif-puj-rdevru catheter system; | Dot Coffey RN | Brigida Berry, | | IV | 18 gauge; distraction, tolerated | | RN | | | well, appears comfortable; | | | | | removed per policy/procedure, no | | | | | longer indicated, catheter/device | | | | | intact; 08/10/18; 1200 | | | +--------+ + + + | Epidur | 08/07/18; 2005 (created via | 08/07/182005 by | 08/08/18 025 by | | al/Spi | procedure documentation); no | Pauly Betancourt, | Dot Coffey RN | | nal | longer indicated, catheter | COMPONENT LAB TECH | | | | intact; 08/08/18; 0258 | | | +--------+ + + + | Urethr | 08/07/18; 2049; indicated for | 08/07/182049 by | 08/08/1834 by | | al | acute urinary | Dot Coffey RN | Dot Coffey RN | | Cathet | retention/obstruction; All | | | | er | elements; All elements; All | | | | | elements; indwelling single lumen | | | | | catheter; 16; 1; 10; 10; | | | | | urethral catheter removed, tubing | | | | | intact; short term use; | | | | | 08/08/18; 34 | | | +--------+ + + + documented in this encounter Social History + +-------+ +--------+ + | Tobacco Use | Types | Packs/Day | Years | Date | | | | | Used | | + +-------+ +--------+ + | Former Smoker | | 0.1 | | Quit: 10/14/2017 | + +-------+ +--------+ + + +---+---+---+ | Smokeless Tobacco: | | | | | Never Used | | | | + +---+---+---+ + + +---------+ + | Alcohol Use | Drinks/Week | oz/Week | Comments | + + +---------+ + | No | | | | + + +---------+ + + + + | Sex Assigned at | Date Recorded | | | | + + + | Not on file | | + + + documented as of this encounter [place] Notes Anesthesia Postprocedure Evaluation - Pauly Betancourt CRNA - 08/08/2018 11:10 AM PSTFo rmatting of this note might be different from the original. ANESTHESIA POSTANESTHESIA EVALUATION Kristyn [place] 18 y.o. female 2000 [id number] Procedure(s) NEURAXIAL LABOR ANALGESIA/ANESTHESIA Cooperates? Yes Mental Status Performs simple tasks. Respiratory Satisfactory - Airway patent (self maintained). Cardiovascular Satisfactory - Blood pressure and heart rate acceptable Temperature Satisfactory Pain Satisfactory N/V Control Satisfactory Hydration Satisfactory - No signs of dehydration Complications None apparent Vitals: 08/07/18 2039 08/08/18 0515 08/08/18 0810 BP: 130/66 114/70 124/81 Pulse: 87 107 112 Temp: 36.5 C (97.7 F) 36.8 C (98.2 F) 36.7 C (98.06 F) Resp: 18 18 18 SpO2: 100% 96% 96% Electronically signed by Pauly Betancourt CRNA 08/08/2018 11:10 [facility] nesthesia Procedure Notes - Pauly Betancourt CRNA - 08/07/2018 8:18 PM PS TAssociated Order(s): ANE EPIDURAL NOTENeuraxial Procedure Note 08/07/2018 20:06 Procedure: epidural catheter placement Provider requested procedure: Leif Schuster DO Indication: labor analgesia and see requesting provider's documentation Preprocedure check: patient identified, procedure and rescue equipment checked, preevaluati on including airway assessment complete, risks/benefits discussed, consent obtained, timeout performed and reassessment prior to procedure Patient position: sitting Preparation: chlorhexidine/isopropyl alcohol, 1% lidocaine infiltration, Introducer used: yes Local anesthetic infiltration volume: 3 mL Procedure level: L4-5 Approach: midline Needle: Tuohy Needle size: 17 g Needle length: 3.5 in Loss of resistance to: saline Loss of resistance: 5 cm Catheter depth at skin: 10 cm Medication administered through: catheter and incremental injection Negative findings: no blood aspirated, no CSF and no paresthesia Test dose response: negative Attempts: 1 Ease of procedure: easy Dressing: transparent dressing and tape Performing provider: PAULY BETANCOURT Please see anesthesia record or flowsheet for vital sign documentation and see anesthesia r ecord or MAR for all medication documentation. Electronically Signed by: Pauly Betancourt CRNA ESig date/time: 07/18 20:18 nesthesia Prep rocedure Evaluation - Pauly Betancourt CRNA - 08/07/2018 7:50 PM PST ANESTHESIA PREANESTHESIA EVALUATION Kristyn [place] 18 y.o. female 2000 [id number] Procedure(s): NEURAXIAL LABOR ANALGESIA/ANESTHESIA Medical history, anesthesia, medications, allergy, NPO status verified histories reviewed. Labs reviewed. Review of Systems / Med History Anesthesia History No anesthesia complications. (-) PONV, difficult intubation Cardiovascular Negative except where noted below. , Exercise tolerance >4 METS Pulmonary Negative except where noted below. Neurology Negative except where noted below. (+) headaches, back pain Psychology (+) anxiety, substance abuse (states none for 1 year) Gastrointestinal/Hepatic Negative except where noted below. (-) reflux/GERD. Endocrine Negative except where noted below. Obstetrics Negative except where noted below. EGA: 36 5/7 weeks Other (-) coagulopathy 5 cm at last check Intact GBS unkown Physical Exam Airway MP I, TM >3 FB, Mouth opening >2 FB. Neck: full ROM, extends >30 degrees. Jaw protrusi on normal. Dental Grossly normal except where noted below.; (+) Age appropriate dentition. CV cardiovascular normal Rhythm regular. Rate Normal. (-) murmur and peripheral edema. Pulm Clear to auscultation bilaterally. (-) wheezing. Neuro Grossly normal. Anesthesia Plan ASA 2 Type: Epidural. Induction: Local anesthesia. Potential problems: None anticipated. Monitors: Standard ASA monitors. Consent statement:Anesthetic plan, alternatives, risks and benefits discussed with patient. . Consenting person understands and agrees to proceed. Anesthesia consent form used. PARQ. documented in t his encounter Plan of Treatment Not on filedocumented as of this encounter Procedures + +--------+ + + + | Procedure Name | Priori | Date/Time | Associated Diagnosis | Comments | | | ty | | | | + +--------+ + + + | ANE EPIDURAL NOTE | Routin | 08/07/2018 | | Results for this | | | e | 8:18 PM | | procedure are in the | | | | PST | | results section. | + +--------+ + + + documented in this encounter Results Anesthesia Epidural Note (08/07/2018 8:18 PM PST) + + + | Narrative | Performed At | + + + | Pauly Betancourt CRNA 08/07/2018 20:19 Neuraxial Procedure | | | Note 08/07/2018 20:06 Procedure: epidural catheter placement | | | Provider requested procedure: Leif Schuster DO Indication: labor | | | analgesia and see requesting provider's documentation Preprocedure | | | check: patient identified, procedure and rescue equipment checked, | | | preevaluation including airway assessment complete, risks/benefits | | | discussed, consent obtained, timeout performed and reassessment | | | prior to procedure Patient position: sitting Preparation: | | | chlorhexidine/isopropyl alcohol, 1% lidocaine infiltration, | | | Introducer used: yes Local anesthetic infiltration volume: 3 mL | | | Procedure level: L4-5 Approach: midline Needle: Tuohy Needle size: | | | 17 g Needle length: 3.5 in Loss of resistance to: saline Loss of | | | resistance: 5 cm Catheter depth at skin: 10 cm Medication | | | administered through: catheter and incremental injection Negative | | | findings: no blood aspirated, no CSF and no paresthesia Test dose | | | response: negative Attempts: 1 Ease of procedure: easy Dressing: | | | transparent dressing and tape Performing provider: PAULY BETANCOURT | | | D Please see anesthesia record or flowsheet for vital sign | | | documentation and see anesthesia record or MAR for all medication | | | documentation. Electronically Signed by: Pauly Betancourt CRNA | | | ESig date/time: 08/07/2018 20:18 | | | | | + + + + + | Procedure Note | + + | Pauly Betancourt CRNA - 08/07/2018 8:18 PM PST Neuraxial Procedure Note08/07/2018 | | 20:06Procedure: epidural catheter placementProvider requested procedure: Leif Schuster, | | DOIndication: labor analgesia and see requesting provider's documentationPreprocedure | | check: patient identified, procedure and rescue equipment checked, preevaluation | | including airway assessment complete, risks/benefits discussed, consent obtained, | | timeout performed and reassessment prior to procedurePatient position: | | sittingPreparation: chlorhexidine/isopropyl alcohol, 1% lidocaine infiltration, | | Introducer used: yesLocal anesthetic infiltration volume: 3 mLProcedure level: | | L4-5Approach: midlineNeedle: TuohyNeedle size: 17 gNeedle length: 3.5 inLoss of | | resistance to: salineLoss of resistance: 5 cmCatheter depth at skin: 10 cmMedication | | administered through: catheter and incremental injectionNegative findings: no blood | | aspirated, no CSF and no paresthesiaTest dose response: negativeAttempts: 1Ease of | | procedure: easyDressing: transparent dressing and tapePerforming provider: ASIA | | PAULY DPnadya see anesthesia record or flowsheet for vital sign documentation and see | | anesthesia record or MAR for all medication documentation. Electronically Signed by: | | KHANG Campbell date/time: 08/07/2018 20:18 | |Loss of resistance to: saline | |Loss of resistance: 5 cm | |Catheter depth at skin: 10 cm | |Medication administered through: catheter and incremental injection | |Negative findings: no blood aspirated, no CSF and no paresthesia | |Test dose response: negative | |Attempts: 1 | |Ease of procedure: easy | |Dressing: transparent dressing and tape | |Performing provider: PAULY BETANCOURT | | | |Please see anesthesia record or flowsheet for vital sign documentation and see anesthesia r ecord or MAR for all medication documentation. | | | |Electronically Signed by: Pauly Betancourt CRNA ESinolan date/time: 07/18 20:18 | + + documented in this encounter Visit Diagnoses Not on filedocumented in this encounter Administered Medications + +--------+ +-------+------+------+ | Medication Order | MAR | Action | Dose | Rate | Site | | | Action | Date | | | | + +--------+ +-------+------+------+ | bupivacaine (PF) (MARCAINE) | Given | 08/07/19 | 4 mLs | | | | 0.25% injection EPIDURAL, PRN, | | 19 8:17 | | | | | Starting 08/07/18 at 2011, | | PM PST | | | | | Anesthesia Intra-op | | | | | | + +--------+ +-------+------+------+ +-------+ +-------+---+---+ | Given | 08/07/19 | 4 mLs | | | | | 19 8:12 | | | | | | PM PST | | | | +-------+ +-------+---+---+ +---+---+ | | | +---+---+ + +---------+ + + +---+ | fentaNYL 2 mcg/mL and | New Bag | 08/07/19 | 12 mL/hr | 12 mL/hr | | | ropivacaine 0.125% in saline (PF) | | 19 8:21 | | | | | CONTINUOUS PRN, Starting Fri | | PM PST | | | | | 08/07/18 at 2020, Anesthesia | | | | | | | Intra-op | | | | | | + +---------+ + + +---+ +---+---+ | | | +---+---+ + +-------+ +-------+---+---+ | lidocaine 1.5%-EPINEPHrine | Given | 08/07/19 | 3 mLs | | | | 1:200,000 (PF) injection | | 19 8:07 | | | | | EPIDURAL, PRN, Starting Fri | | PM PST | | | | | 08/07/18 at 2006, Anesthesia | | | | | | | Intra-op | | | | | | + +-------+ +-------+---+---+ +---+---+ | | | +---+---+ documented in this encounter"
--- OUTSIDE RECORDS SUMMARY | ~2020-03-22 | XMS | Encounter Summary ---
Demographics + + + | Address | [address] | | | [place] [address] | + + + | Home Phone | | + + + | Preferred Language | Unknown | + + + | Marital Status | Single | + + + | Jewish Affiliation | 1013 | + + + [...] Mark Chatterjee | ECON | [place] [address] | | | | | Unknown | | + + + + + | Jean Claude Chatterjee | ECON | Unknown | | + + + + + Care Team Providers + +------+ + | Care Log Driver Name | Role | Phone | + +------+ + | Leroy Dougherty NP | PCP | | + +------+ + Reason for Visit + +--------+ + | Reason | Onset | Comments | | | Date | | + +--------+ + | Lab Results | 06/29/ | | | | 2019 | | + +--------+ + Encounter Details +--------+ + + + + | Date | Type | Department | Care Team | Description | +--------+ + + + + | 06/29/ | Telephone | [facility] | Caty Schuster | Lab Results | | 2018 | | [facility] | [address] | | | | | [address] | [address] | | | | | [address], | [place] | | | | | [place] [address] | [address] | | | | | [phone] | | | | | | | [...] + + documented as of this encounter Miscellaneous Notes Telephone Encounter - Caitlin Santana LPN - 06/29/2018 2:44 PM PSTWanting results of he r gc/chlamydia test. TTelephone Encounter - Chelsey Jalloh - 06/29/2018 2:25 PM PSTKylie called stating she has been waiting for lab results for the chlamydia and HSV test. She was told that these should be in a day after the test, which was done 06/25. Nothing is on MyChart and she hasn't receiv ed a call. Please call to follow up. 2 :26 PM PSTdocumented in this encounter Plan of Treatment Not on filedocumented as of this encounter Visit Diagnoses Not on filedocumented in this encounter"
--- OUTSIDE RECORDS SUMMARY | ~2020-03-22 | XMS | Encounter Summary ---
Demographics + + + | Address | [address] | | | [place] [address] | + + + | Home Phone | | + + + | Preferred Language | Unknown | + + + | Marital Status | Single | + + + | Congregation Affiliation | 1013 | + + + | Race | White | + + + | Ethnic Group | Not or | + + + Author + + + | Author | [facility] | | | and [place] | + + + | Organization | [facility] | | | and [place] | + + + | Address | Unknown | + + + | Phone | Unavailable | + + + Support + + + + + | Name | Relationship | Address | Phone | + + + + + | Mark Chatterjee | ECON | [place] [address] | | | | | Unknown | | + + + + + | Jean Claude Chatterjee | ECON | Unknown | | + + + + + Care Team Providers + +------+ + | Care Manager Corporate Responsibility Name | Role | Phone | + +------+ + | Jane Mercado | PCP | Unavailable | + +------+ + Reason for Visit +---------+ + | Reason | Comments | +---------+ + | Anxiety | | +---------+ + Encounter Details +--------+---------+ + + + | Date | Type | Department | Care Team | Description | +--------+---------+ + + + | 12/05/ | Office | [facility] | Jane Mercado | Suicidal ideation | | 2018 | Visit | [facility] | Jovanni RAILCAR SWITCHER | (Primary Dx); | | | | [facility] [address] | | Depression, | | | | [facility], | | unspecified | | | | [place] [address] | | depression type; | | | | [phone] | | Anxiety | +--------+---------+ + + + Social History + +-------+ +--------+------+ | Tobacco Use | Types | Packs/Day | Years | Date | | | | | Used | | + +-------+ +--------+------+ | Current Every Day | | 0.1 | | | | Smoker | | | | | + +-------+ +--------+------+ + +---+---+---+ | Smokeless Tobacco: | | [...] + + + | Blood Pressure | 102/58 | 12/05/2017 8:37 AM | | | | | PDT | | + + + + + | Pulse | 83 | 12/05/2017 8:37 AM | | | | | PDT | | + + + + + | Temperature | - | - | | + + + + + | Respiratory Rate | 16 | 12/05/2017 8:37 AM | | | | | PDT | | + + + + + | Oxygen Saturation | 97% | 12/05/2017 8:37 AM | | | | | PDT | | + + + + + | Inhaled Oxygen | - | - | | | Concentration | | | | + + + + + | Weight | 60.4 kg (133 lb 3.2 | 12/05/2017 8:37 AM | | | | oz) | PDT | | + + + + + | Height | 166.4 cm (5' 5.5") | 12/05/2017 8:37 AM | | | | | PDT | | + + + + + | Body Mass Index | 21.83 | 12/05/2017 8:37 AM | | | | | PDT | | + + + + + documented in this encounter Progress Notes Jane Mercado, FAY - 12/05/2017 8:30 AM PDTFormatting of this note might be differe nt from the original. Patient ID: Kristyn Longoria is a 17 y.o. year old female Chief Complaint: Chief Complaint Patient presents with Anxiety Assessment and Plan: 1. Suicidal ideation 2. Depression, unspecified depression type 3. Anxiety Called crisis team from [facility] due to patient expressing intermittent thoughts of suicide. Jun Toussaint LCSW/crisis counselor came to the clinic and met with the patient in my office. Patient has appointment to establish with [facility] in [place], [place] next Friday. I reagan lg [facility] and was told patient could make an appointment or walk in to be cami luated for marijuana use/dependence. Patient was notified about this. Subjective: Patient presents today to establish care. Was previously seen at [facility] in [place], [place]. Last seen 11/19/17 for ER follow-up for suicidal ideation and start ed on Vistaril 25 mg tid prn and referred to behavioral health. She reports that she was ref erred to a counselor at [facility] in [place], [place]. She has not been to [facility] yet as she is waiting for her boyfriend to get back in town to go with her. Her boyfriend will be back in town next week. States she has an appointment with [facility] on 12/10/17. She reportedly had no suicide plan when she was in the ER on 11/19/17 and appeared safe, with good support fr om significant other at home during crisis. She reports that her neighbor and best friend is also a good support system. She reports that the only reason she is here today is to get a marijuana card. 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 She is requesting a referral to psychiatric prescriber to see if they could give her a card. States she thinks frequently thinks about hurting herself by cutting. Denies suicide plan o r thoughts today but reports that she might be suicidal later in the day as suicidal thought s come and go. Denies using any street drugs. Reports that she does use marijuana. States winston perdomo lives with her boyfriend but he is out of town for 2 weeks. States she spends a lot of mayelin e with her boyfriends parents who live in [place]. Reports her mom is a methamphetamine addict but she recently moved out of her house and in with her boyfriend. Has tried to commit suic vickie 3x in the past year by cutting veins, drowning self in bath tub and overdosing on multip le drugs. Has tried cocaine and last used a few months ago. Reports that she has been depres sed since age 11. Reports she started cutting at age 11. Previously seen at [facility]. 1. Depression and anxiety - states she has Vistaril and has used this twice and is not sure if this helped or not. Benítez kylah tried Paxil, prozac and clonazepam. States she has panic attacks every couple of days. Jeferson e panic attacks are worse than others. 2. Delayed menses - test negative about one month ago 3. Tobacco use disorder - states she smokes a couple of cigarettes per week Allergies: No Known Allergies Medications: No current outpatient prescriptions on file. No current facility-administered medications for this visit. There is no problem list on file for this patient. Past Surgical History: Procedure Laterality Date tailbone Review of Systems Constitutional: Positive for activity change and fatigue. Negative for appetite change, chi lls, diaphoresis, fever and unexpected weight change. HENT: Positive for congestion, rhinorrhea and sneezing. Negative for ear discharge, ear breanna n, facial swelling, sinus pain, sinus pressure and sore throat. Eyes: Negative. Respiratory: Positive for cough. Negative for chest tightness, shortness of breath and whee zing. Cardiovascular: Negative. Gastrointestinal: Positive for abdominal distention and nausea. Negative for abdominal pain , blood in stool, constipation, diarrhea and vomiting. Endocrine: Positive for polyphagia. Negative for cold intolerance, heat intolerance, polydi psia and polyuria. Genitourinary: Negative for difficulty urinating, dyspareunia, dysuria, flank pain, hematur ia, menstrual problem, pelvic pain, urgency and vaginal pain. Musculoskeletal: Negative. Skin: Negative for rash and wound. Allergic/Immunologic: Positive for environmental allergies. Negative for food allergies. Psychiatric/Behavioral: Positive for agitation, confusion, decreased concentration, halluci nations, self-injury, sleep disturbance and suicidal ideas. Negative for behavioral problems . The patient is nervous/anxious and is hyperactive. Family History Problem Relation Age of Onset Cancer Maternal Grandfather Stroke Paternal Grandmother Social History Social History Marital status: Single Spouse name: N/A Number of children: N/A Years of education: N/A Occupational History Not on file. Social History Main Topics Smoking status: Current Every Day Smoker Packs/day: 0.10 Smokeless tobacco: Never Used Alcohol use No Drug use: No Sexual activity: Not on file Other Topics Concern Not on file Social History Narrative No narrative on file Objective: Vitals: BP 102/58 | Pulse 83 | Resp 16 | Ht 1.664 m (5' 5.5") | Wt 60.4 kg (133 lb 3.2 oz) | S pO2 97% | ? No | BMI 21.83 kg/m Physical Exam Constitutional: She is oriented to person, place, and time. She appears well-developed and well-nourished. HENT: Head: Normocephalic and atraumatic. Right Ear: External ear normal. Left Ear: External ear normal. Mouth/Throat: Oropharynx is clear and moist. Eyes: Conjunctivae and EOM are normal. Pupils are equal, round, and reactive to light. Neck: Normal range of motion. Neck supple. Cardiovascular: Normal rate, regular rhythm, normal heart sounds and intact distal pulses. Pulmonary/Chest: Effort normal and breath sounds normal. Abdominal: Soft. Bowel sounds are normal. Musculoskeletal: Normal range of motion. Neurological: She is alert and oriented to person, place, and time. She has normal reflexes . Skin: Skin is warm and dry. Scars on left arm that patient reports are from cutting Psychiatric: Flat affect. KAMILAH Melvin12/05/20179:41 documented in t his encounter Plan of Treatment Not on filedocumented as of this encounter Visit Diagnoses + + | Diagnosis | + + | Suicidal ideation - Primary | + + | Depression, unspecified depression type | + + | Anxiety Anxiety state, unspecified | + + documented in this encounter
--- OUTSIDE RECORDS SUMMARY | ~2020-03-22 | XMS | Encounter Summary ---
Demographics + + + | Address | [address] | | | [place] [address] | + + + | Home Phone | | + + + | Preferred Language | Unknown | + + + | Marital Status | Single | + + + | Hoahaoism Affiliation | 1013 | + + + | Race | White | + + + | Ethnic Group | Not or | + + + Author + + + | Author | [facility] | | | and [place] | + + + | Organization | [facility] | | | and [place] | + + + | Address | Unknown | + + + | Phone | Unavailable | + + + Support + + + + + | Name | Relationship | Address | Phone | + + + + + | Mark Chatterjee | ECON | [place] [address] | | | | | Unknown | | + + + + + | Jean Claude Chatterjee | ECON | Unknown | | + + + + + Care Team Providers + +------+ + | Care Dog Trainer Name | Role | Phone | + [...] GA: 34w4d | | 2019 | | [facility] | [address] | | | | | [address] | [address] | | | | | [address], | [place] | | | | | [place] [address] | [address] | | | | | [phone] | [phone] | | | | | | | [...] PSTCalled and informed Kristyn the results of he r lab testing. Per Dr. Schuster hCaty sotelo DO - 07/23/2018 3:30 PM PSTBile acids are fine.Electro nically signed by Caty Schuster DO at 07/30/2018 6:51 AM Caty Magallanes DO - 07/23/2018 3:30 PM PST . Patient Active Problem List Diagnosis Date Noted Herpes simplex vulvovaginitis 07/10/2018 , unspecified gestational age 0801/27/2018 Overview Note: (last update: 07/10/2018) Blood type Lab Results Component Value Date ABO O 02/14/2018 RH Rh Positive 02/14/2018 Rhogam n/a LINDSEY/NIPT Flu Tdap declined Problems: Patient transferred at 28 wks from [facility]. Had positive chlamydia at 30 weeks as [...] reviewed it is uncommon. Wants induction Ma h 10th. Will start acyclovir now.Electronically signed by [...] + + + + + + | eGFR, | >60Comment: GLOMERULAR | >=60 | [facility] | | | non- | FILTRATION | mL/min/1.73m2 | [facility] | | | Swazi | RATE,ESTIMATED | | HOSPITAL | | | | mL/min/1.63u5Sgpq than | | LABORATORY | | | [...] + + | [facility] | [address] | [place] | [phone] | | HOSPITAL LABORATORY | | [address] | | + + + + + [...] | | | | | | - [place]LE | | | | | | [place] | | + + + + + [...] + + + | REFERENCE LAB | [address] | [place], [place] | | | [facility] - | | [address] | | | [place] | | | | + + + [...]
--- OUTSIDE RECORDS SUMMARY | ~2020-03-22 | XMS | Encounter Summary ---
Demographics + + + | Address | [address] | | | [place] [address] | + + + | Home Phone | | + + + | Preferred Language | Unknown | + + + | Marital Status | Single | + + + | Judaism Affiliation | 1013 | + + + | Race | White | + + + | Ethnic Group | Not or | + + + Author + + + | Author | [facility] | | | and [place] | + + + | Organization | [facility] | | | and [place] | + + + | Address | Unknown | + + + | Phone | Unavailable | + + + Support + + + + + | Name | Relationship | Address | Phone | + + + + + | Mark Chatterjee | ECON | [place] [address] | | | | | Unknown | | + + + + + | Jean Claude Chatterjee | ECON | Unknown | | + + + + + Care Team Providers + +------+ + | Care Air Surveillance Operator Name | Role | Phone | + +------+ + | Leroy Dougherty NP | PCP | | + +------+ + Reason for Visit + + + | Reason | Comments | + + + | Depression | | + + + Encounter Details +--------+ + + + + | Date | Type | Department | Care Team | Description | +--------+ + + + + | 08/17/ | Clinical | [facility] | Caty Schuster | Anxiety (Primary | | 2019 | Support | [facility] | [address] | Dx); | | | | [address] | [address] | depression | | | | DR [address], | [place], [place] | | | | | [place] [address] | [address] | | | | | [phone] | | | | | | | [...] this encounter Last Filed Vital Signs + +---------+ + + | Vital Sign | Reading | Time Taken | Comments | + +---------+ + + | Blood Pressure | 117/70 | 08/19/2018 4:42 PM | | | | | PST | | + +---------+ + + | Pulse | 92 | 08/19/2018 4:42 PM | | | | | PST | | + +---------+ + + | Temperature | - | - | | + +---------+ + + | Respiratory Rate | 16 | 08/19/2018 4:42 PM | | | | | PST | | + +---------+ + + | Oxygen Saturation | - | - | | + +---------+ + + | Inhaled Oxygen | - | - | | | Concentration | | | | + +---------+ + + | Weight | - | - | | + +---------+ + + | Height | - | - | | + +---------+ + + | Body Mass Index | - | - | | + +---------+ + + documented in this encounter Progress Notes Caty Schuster, - 08/17/2018 2:00 PM Tavia Kate Von is a 18 y.o. G [id number] premenopausal female here for issues. She is feeling overwhelmed and worr ied. She has some help but the FOB has been at training for [employer]. She is feeling overwhelmed. The baby had to be under lights for increased bilirubin. She saw that the [employer] by's blood work showed positive IGG for HSV2. I did discuss this with Dr. Balbuena and we sp th feel that this is from maternal blood. The baby is not having any signs of infection. T his is something that she needs to follow closely but I would like her to remember that at t his time, the baby is doing fine. She has had issues with depression in the past and she do es not want to get bad again. She has not has success with medication. She has no sores. We discussed that it is possible the baby could have HSV from the process but the sore s she had that we covered did not appear to be an active HSV and she was on medication. No Known Allergies Current Outpatient Prescriptions: acyclovir (ZOVIRAX) 400 MG tablet, Take 1 tablet by mouth 2 times daily., Disp: 60 tab let, Rfl: 0 ferrous sulfate 325 mg tablet, Take 1 tablet by mouth daily (with breakfast)., Disp: 3 0 tablet, Rfl: 1 ibuprofen (ADVIL,MOTRIN) 800 MG tablet, Take 1 tablet by mouth every 8 hours as needed for up to 14 days., Disp: 42 tablet, Rfl: 0 oxyCODONE (ROXICODONE) 5 mg tablet, Take 1 tablet by mouth every 4 hours as needed for up to 20 doses., Disp: 20 tablet, Rfl: 0 Sash Assembler history: Menstrual history: Patient's last menstrual period was 11/23/2017 (exact date). Control: none STD history: HSV, h/o chlamydia but last testing was negative. Sexual history: Patient is sexuall active with Male. She has single partner/s. ROS: General: negative Gastrointestinal: negative Breast: negative -Urinary: negative Psychiatric: positive for - anxiety and depression PE : General: thin female. She appears depressed Psych: oriented to time, place and person. Patient with depressed affect. Assessment/Plan: 1. Anxiety 2. depression I did speak with [place]. I do feel the patient would benefit from having the FOB here t o help care for the baby as they are waiting to see if the HSV will be an issue and as they are working on the jaundice. I Would encourage the patient to really focus on what is and not what could be. She has an appointment with peds clinic on Friday. Return in about 1 week (around 08/24/2018). Caty Schuster DO 08/17/18 documented in this encounter Plan of Treatment Not on filedocumented as of this encounter Visit Diagnoses + + | Diagnosis | + + | Anxiety - Primary Anxiety state, unspecified | + + | depression Mental disorders of mother, complicating , childbirth, | | or the puerperium, unspecified as to episode of care | + + documented in this encounter"
--- OUTSIDE RECORDS SUMMARY | ~2020-03-22 | XMS | Encounter Summary ---
Demographics + + + | Address | [address] | | | [place] [address] | + + + | Home Phone | | + + + | Preferred Language | Unknown | + + + | Marital Status | Single | + + + | Orthodox Affiliation | 1013 | + + + | Race | White | + + + | Ethnic Group | Not or | + + + Author + + + | Author | [facility] | | | and [place] | + + + | Organization | [facility] | | | and [place] | + + + | Address | Unknown | + + + | Phone | Unavailable | + + + Support + + + + + | Name | Relationship | Address | Phone | + + + + + | Mark Chatterjee | ECON | [place] [address] | | | | | Unknown | | + + + + + | Jean Claude Chatterjee | ECON | Unknown | | + + + + + Care Team Providers + +------+ + | Care Litigation Coordinator Name | Role | Phone | + +------+ + | Leroy Dougherty NP | PCP | | + +------+ + Reason for Visit + +--------+ + | Reason | Onset | Comments | | | Date | | + +--------+ + | Pharmacy / Med | 07/01/ | | | | 2019 | | + +--------+ + Encounter Details +--------+ + + + + | Date | Type | Department | Care Team | Description | +--------+ + + + + | 07/01/ | Telephone | [facility] | Caty Schuster | Pharmacy / Med | | 2019 | | [facility] | [address] | | | | | [address] | [address] | | | | | [address], | [facility], [place] | | | | | [place] [address] | [address] | | | | | [phone] | [phone] | | | | | | | [...] Telephone Encounter - Caitlin Santana LPN - 07/01/2018 4:33 PM PSTRx called [facility] and also faxed over her insurance information to [facility] as it's saying that he r insurance is no good. Per Dr. Schuster. elephone Encounter - Caty Schuster DO - 07/01/2018 3:37 PM PSTI can prescribe it for her partner if he does not want to go to [facility]. However, I will need to have his name and date. I have to prescribe it to him. elephone Encounter - Josie Tuttle CNA - 07/01/2018 3:17 PM PSTPlease see messge below. elephone Encounter - Vanessa Yeepz - 07/01/2018 3:15 P M Tavia called. She said she was at the pharmacy and was being told they would only give her one bottle of the medication Dr. Schuster has prescribed at her last appointment. Kristyn said she was under the impression that Dr. Schuster was going to prescribe 2 bottles, one for her and one for her partner. Dr. Schuster was with a patient so I told her we would give her a call back. Vanessa Cheney documented in this encounter Plan of Treatment Not on filedocumented as of this encounter Visit Diagnoses Not on filedocumented in this encounter"
--- OUTSIDE RECORDS SUMMARY | ~2020-03-22 | XMS | Encounter Summary ---
Demographics + + + | Address | [address] | | | [place] [address] | + + + | Home Phone [...] Author + + + | Author | [facility] | | | and [place] | + + + | Organization | [facility] | | | and [place] | + + + | Address | Unknown | + + + | Phone | Unavailable | + + + Support + + + + + | Name | Relationship | Address | Phone | + + + + + | Mark Chatterjee | ECON | [place] [address] | | | | | Unknown | | + + + + + | Jean Claude Chatterjee | ECON | Unknown | | + + + + + Care Team Providers + +------+ + | Care Work And Family Life Consultant Name | Role | Phone | + [...] GA: 36w4d | | 2019 | | [facility] | [address] | | | | | [address] | [address] | | | | | DR [address], | [place] | | | | | [place] [address] | [address] | | | | | [phone] | [phone] | | | | | | | [...] + documented in this encounter Progress Notes Mariely Caty Fergusonlani, DO - 08/06/2018 3:15 PM PSTFormatting of this note might be diffe rent from the original. Patient Active Problem List Diagnosis Date Noted Herpes simplex vulvovaginitis 07/10/2018 , unspecified gestational age 0801/27/2018 Overview Note: (last update: 07/10/2018) Blood type Lab Results Component Value Date ABO O 02/14/2018 RH Rh Positive 02/14/2018 Rhogam n/a LINDSEY/NIPT Flu Tdap declined Problems: Patient transferred at 28 wks from [place]. Had positive chlamydia at 30 weeks as [...] pH, Urine 7.0 5.0 - 7.0 Specific [place] 1.010 1.003 - 1.030 Protein, Urine 30 [...] pH, Urine 7.0 5.0 - 7.0 Specific [place] 1.005 1.003 - 1.030 Protein, Urine Negative [...] | + +--------+ + + + | CULTURE, STREP GROUP | Routin | 08/06/2018 | [...] + + + + + | [facility] | [address] | [place] | [phone] | | HOSPITAL LAB[facility]ORY | | [address] | | + + + + + documented in this encounter Visit Diagnoses + + | Diagnosis | + + | 36 weeks gestation of - Primary state, incidental | + + | Normal in multigravida in third trimester | + + documented in this encounter"
--- OUTSIDE RECORDS SUMMARY | ~2020-03-22 | XMS | Encounter Summary ---
Demographics + + + | Address | [address] | | | [place] [address] | + + + | Home Phone | | + + + | Preferred Language | Unknown | + + + | Marital Status | Single | + + + | Samaritan Affiliation | 1013 | + + + | Race | White | + + + | Ethnic Group | Not or | + + + Author + + + | Author | [facility] | | | and [place] | + + + | Organization | [facility] | | | and [place] | + + + | Address | Unknown | + + + | Phone | Unavailable | + + + Support + + + + + | Name | Relationship | Address | Phone | + + + + + | Mark Chatterjee | ECON | [place] [address] | | | | | Unknown | | + + + + + | Jean Claude Chatterjee | ECON | Unknown | | + + + + + Care Team Providers + +------+ + | Care Water Resources Business Segment Leader Name | Role | Phone | + [...] | [address], [place] | [place] [address] | | | | | [address] | [phone] | | | | | [phone] | | | +--------+ + + + [...] + documented in this encounter Discharge Instructions Instructions Luisito Siegel DO - 03/26/2019Follow up with your primary provider. AttachmentsThe following attachments cannot be sent through Care Everywhere.Lymphadenopathy (Greenlandic)documented in this encounter ED Notes Luisito Siegel DO - 03/26/2019 4:32 PM PDTFormatting of this note might be diff erent from the original. [facility] Emergency Department Provider Note Name: Kristyn Longoria Date: 03/26/2019 : 2000 Room Number: ED04 PCP: Leroy Dougherty NP ED COURSE Patient was seen and evaluated in room 10. Clinical considerations include, but are not vicente ited to: lymphadenopathy, abscess. Ultrasound was performed. I spoke with the radiologist. Exam was negative for abscess. Lymph nodes were noted. Visuals informed the workup and d ischarged in stable condition. I recommended that she follow up with her primary provider. Clinical Impression and Plan Final diagnoses: Inguinal lymphadenopathy ED Prescriptions None Follow-up Information Schedule an appointment as soon as possible for a visit with Leroy Dougherty NP. Specialty: Nurse Practitioner Contact information: [address] [place] [address] Extended ED Note CC: Chief Complaint Patient presents with Pelvic Pain Method of Arrival: walk-in History obtained from: Patient HPI: Kristyn Longoria is a 18 y.o. female who presents with a small area of pain and swel ling to the R anterior hip/inguinal region for about 2-3 days. Patient has a Hx of chlamydia and HSV. Her last HSV flare up was about 1 week ago. She states that she has noticed a few small "lumps" to her R inguinal region that have been there for a while, but a few days ago the area became mildly more swollen with associated new onset pain in that area. She is also 7 months and has been having frequent vaginal discharge since, although she stat es she has seen Dr. Schuster for this issue who told patient that it was a normal occurrence. Patient also c/o some mild nausea currently. No vomiting, diarrhea, difficulty urinating, or dysuria. She denies open wounds or skin discoloration. Review of Systems Review of Systems Gastrointestinal: Positive for nausea. Negative for diarrhea and vomiting. Genitourinary: Positive for vaginal discharge. Negative for difficulty urinating and dysuri a. Skin: Negative for color change and wound. Physical Exam Pulse: 75- Resp: 16- BP: 109/66 - SpO2: 100 % - Temp: 36.5 C (97.7 F) Physical Exam Constitutional: She is oriented to person, place, and time. She appears well-developed and well-nourished. No distress. HENT: Head: Normocephalic. Eyes: Conjunctivae are normal. Neck: Normal range of motion. Cardiovascular: Good peripheral perfusion. Pulmonary/Chest: Effort normal. No respiratory distress. Abdominal: Small bilateral inguinal lymphadenopathy. Neurological: She is alert and oriented to person, place, and time. Skin: Skin is warm and dry. She is not diaphoretic. Psychiatric: Her behavior is normal. Nursing note and vitals reviewed. Past Medical, Surgical, Social, and Family History History reviewed. No pertinent past medical history. Past Surgical History: Procedure Laterality Date tailbone Social History Tobacco Use Smoking status: Former Smoker Packs/day: 0.10 Last attempt to quit: 10/14/2017 Years since quittin.4 Smokeless tobacco: Never Used Substance Use Topics Alcohol use: Yes Comment: monthly Drug use: Yes Types: Marijuana Comment: monthly No current outpatient medications on file prior to encounter. This document serves as a record of the serviced and decision personally performed by Christiane Siegel DO. It was created on their behalf by Shawn Foley, a trained medical/surgery registered nurse. The creation of this document is based on the provider's statements to the medical/surgery registered nurse. Parts of this note may have been created using [employer] which is a voice recognition software . It inherently makes mistakes with substitution of words that sound similar. Luisito Siegel DO 03/27/19 0143 Mickey Robbins RN - 03/26/2019 4:11 PM PDTPt states that she has abd pain that is "a cyst" it is locat ed in her R) groin "three bump" and the pain goes to "pelvis bone' documented in this encounter Plan of Treatment + [...] | | | FICATI | | | ON?10/ | | | 11/201 | | | 9 | | | 15:59? | | | DECKER | | | VON | | | , | | | KRISTYN | | | S?MRN: | | | | | | [id number] | | | [id number] | | | riteri | | | [...] | | | St. | | | [place] | | | y | | | [...] | | | St. | | | [place] | | | y | | | Hospit | | | al | | | Patien | | | t is | | | curren | | | tly | | | establ | | | ished | | | with | | | St | | | [place] | | | y | | | [...] St | | | | | | [place] | | | y | | | [...] | | | [phone] | | | [phone] | | | .These | | | [...] | | | St. | | | [place] | | | y | | | [...] | | | St. | | | [place] | | | y H. | | [...] | | LEROY | | | R, DIP DYER | | | Nurse | | | [...]
--- OUTSIDE RECORDS SUMMARY | ~2020-03-22 | XMS | Encounter Summary ---
Demographics + + + | Address | [address] | | | [place] [address] | + + + | Home Phone | | + + + | Preferred Language | Unknown | + + + | Marital Status | Single | + + + | Sikhism Affiliation | 1013 | + + + | Race | White | + + + | Ethnic Group | Not or | + + + Author + + + | Author | [facility] | | | and [place] | + + + | Organization | [facility] | | | and [place] | + + + | Address | Unknown | + + + | Phone | Unavailable | + + + Support + + + + + | Name | Relationship | Address | Phone | + + + + + | Mark Chatterjee | ECON | [place] [address] | | | | | Unknown | | + + + + + | Jean Claude Chatterjee | ECON | Unknown | | + + + + + Care Team Providers + +------+ + | Care Nurse Recruiter Name | Role | Phone | + [...] [place] | | | 2019 | | [address] | [address] | | | | | [phone] | [phone] | | | | | | | [...] documented as of this encounter Miscellaneous Notes OB Triage Notes - Carmel Nguyen RN - 08/06/2018 9:50 PM PSTPatient here with concerns o f mucous and bloody discharge after exam in the office earlier today. Patient reports ede RUIZ and gabrielle AREVALO. do cumented in this encounter Plan of Treatment Not on filedocumented as of this encounter Visit Diagnoses Not on filedocumented in this encounter"
--- OUTSIDE RECORDS SUMMARY | ~2020-03-22 | XMS | Encounter Summary ---
Demographics + + + | Address | [address] | | | [place] [address] | + + + | Home Phone | | + + + | Preferred Language | Unknown | + + + | Marital Status | Single | + + + | Protestant Affiliation | 1013 | + + + | Race | White | + + + | Ethnic Group | Not or | + + + Author + + + | Author | [facility] | | | and [place] | + + + | Organization | [facility] | | | and [place] | + + + | Address | Unknown | + + + | Phone | Unavailable | + + + Support + + + + + | Name | Relationship | Address | Phone | + + + + + | Mark Chatterjee | ECON | [place] [address] | | | | | Unknown | | + + + + + | Jean Claude Chatterjee | ECON | Unknown | | + + + + + Care Team Providers + +------+ + | Care Water Truck Driver Name | Role | Phone | [...] GA: 32w4d | | 2019 | | [facility] | [address] | | | | | [address] | [address] | | | | | [address], | [place] | | | | | [place] [address] | [address] | | | | | [phone] | [phone] | | | | | | | [...] documented in this encounter Progress Notes Caty Schuster DO - 07/09/2018 3:30 PM PSTFormatting of this [...] Patient transferred at 28 wks from [place]. Had positive chlamydia at 30 weeks as [...]
--- OUTSIDE RECORDS SUMMARY | ~2020-03-22 | XMS | Encounter Summary ---
Demographics + + + | Address | [address] | | | [place] [address] | + + + | Home Phone [...] Author + + + | Author | [facility] | | | and [place] | + + + | Organization | [facility] | | | and [place] | + + + | Address | Unknown | + + + | Phone | Unavailable | + + + Support + + + + + | Name | Relationship | Address | Phone | + + + + + | Mark Chatterjee | ECON | [place] [address] | | | | | Unknown | | + + + + + | Jean Claude Chatterjee | ECON | Unknown | | + + + + + Care Team Providers + +------+ + | Care Disability Coordinator Name | Role | Phone | + +------+ + | Leroy Dougherty NP | PCP | | + +------+ + Encounter Details +--------+ + + + + | Date | Type | Department | Care Team | Description | +--------+ + + + + | 06/11/ | Abstract | [place] | Caitlin Santana, | | | 2017 | | [facility] | SENIOR RESEARCH PROJECT MANAGER | | | | | [address] | | | | | | [address], | | | | | | [place] [address] | | | | | | [phone] | | | +--------+ + + + [...]
--- OUTSIDE RECORDS SUMMARY | ~2020-03-22 | XMS | Encounter Summary ---
Demographics + + + | Address | [address] | | | [place] [address] | + + + | Home Phone | | + + + | Preferred Language | Unknown | + + + | Marital Status | Single | + + + | Jehovah'S Witness Affiliation | 1013 | + + + | Race | White | + + + | Ethnic Group | Not or | + + + Author + + + | Author | [facility] | | | and [place] | + + + | Organization | [facility] | | | and [place] | + + + | Address | Unknown | + + + | Phone | Unavailable | + + + Support + + + + + | Name | Relationship | Address | Phone | + + + + + | Mark Chatterjee | ECON | [place] [address] | | | | | Unknown | | + + + + + | Jean Claude Chatterjee | ECON | Unknown | | + + + + + Care Team Providers + +------+ + | Care Service Team Leader Name | Role | Phone | + +------+ + | Leroy Dougherty NP | PCP | | + +------+ + Encounter Details +--------+ + + + + | Date | Type | Department | Care Team | Description | +--------+ + + + + | 06/19/ | Hospital | [facility] | Cheryl Sebastian, | | | 2019 | Encounter | [facility] | FLASH DEVELOPER [address] | | | | | LAB[address] | [place] | | | | | [address] [place] | [id number] | | | | | [address] | | | | | | [phone] | | | +--------+ + + + [...]
--- OUTSIDE RECORDS SUMMARY | ~2020-03-22 | XMS | Encounter Summary ---
Demographics + + + | Address | [address] | | | [place] [address] | + + + | Home Phone | | + + + | Preferred Language | Unknown | + + + | Marital Status | Single | + + + | Adventism Affiliation | 1013 | + + + [...] Mark Chatterjee | ECON | [place] [address] | | | | | Unknown | | + + + + + | Jean Claude Chatterjee | ECON | Unknown | | + + + + + Care Team Providers + +------+ + | Care Fire Tower Keeper Name | Role | Phone | + [...] | 2019 | | [facility] | FRONT END UI DEVELOPER | affecting | | | | [address] | | in third trimester | | | | DR [address], | | (Primary Dx) | | | | [place] [address] | | | | | | [phone] | | | +--------+ + + + [...]
--- OUTSIDE RECORDS SUMMARY | ~2020-03-22 | XMS | Encounter Summary ---
Demographics + + + | Address | [address] | | | [place] [address] | + + + | Home Phone [...] Mark Chatterjee | ECON | [place] [address] | | | | | Unknown | | + + + + + | Jean Claude Chatterjee | ECON | Unknown | | + + + + + Care Team Providers + +------+ + | Care Sliver Former Name | Role | Phone | + +------+ + PCP | Unavailable | + +------+ + Reason for Visit + +--------+ + | Reason | Onset | Comments | | | Date | | + +--------+ + | Imaging Only | 01/12/ | PT IN [place] WITH NEW PCP | | | 2017 | | + +--------+ + Encounter Details +--------+ + + + + | Date | Type | Department | Care Team | Description | +--------+ + + + + | 01/12/ | Telephone | [place] | Jane Mercado | Imaging Only (PT IN | | 2017 | | [facility] | G, SPACE CONTROL SUPERVISOR | [place] WITH NEW | | | | [facility] [address] | | PCP ) | | | | [address] [facility], | | | | | | [place] [address] | | | | | | [phone] | | | +--------+ + + + [...] this encounter Miscellaneous Notes Telephone Encounter - Emily Arevalo LPN - 01/12/2018 5:07 PM PDTI called pt back. Pt stated that "she had an U/S in [place] but it wasn't good enough to show what was going o n with her baby so her obgyn told her to try and get a TV u/s here at [facility]." Pt stated she h as had several positive tests and just had an HCG drawn that she is waiting to get results on. I explained to pt that she would need to see Jane and talk to her about wha t was going on before Jane could order anything. Pt stated that, "This was not necessa ry, her pcp told her all she needed was an order and that Jane was no longer her pcp, her pcp was in [place], she had just wanted Jane to write the order for the TV u/s.". I explained again to pt that she would need to have an OV with Jane before Jane could o rder any imaging and I suggested to her that she have her PCP in [place] possibly order th e u/s and she could call the hospital to schedule.. Pt said thank you and hung up. Thanks sls. I removed Jane's name as PCP> Electronically signed by Emily Arevalo LPN at 5:12 PM PDTTelephone Encounter - Silviano Ledezma - 01/12/2018 2:38 PM PDTPt sta hattie that she went to the hospital in [place] and was recommended to get a transvaginal ult rasound. Pt has an appt with an OBGYN in january but states that she think she should have th is done in the next couple days. Please call the pt what can be done at this time. Thanks, Silviano Ledezma P DTdocumented in this encounter Plan of Treatment Not on filedocumented as of this encounter Visit Diagnoses Not on filedocumented in this encounter
--- OUTSIDE RECORDS SUMMARY | ~2020-03-22 | XMS | Encounter Summary ---
Demographics + + + | Address | [address] | | | [place] [address] | + + + | Home Phone | | + + + | Preferred Language | Unknown | + + + | Marital Status | Single | + + + | Temple Affiliation | 1013 | + + + | Race | White | + + + | Ethnic Group | Not or | + + + Author + + + | Author | [facility] | | | and [place] | + + + | Organization | [facility] | | | and [place] | + + + | Address | Unknown | + + + | Phone | Unavailable | + + + Support + + + + + | Name | Relationship | Address | Phone | + + + + + | Mark Chatterjee | ECON | [place] [address] | | | | | Unknown | | + + + + + | Jean Claude Chatterjee | ECON | Unknown | | + + + + + Care Team Providers + +------+ + | Care Timber Inspector Name | Role | Phone | + +------+ + | Leroy Dougherty NP | PCP | | + +------+ + Reason for Visit +---------+--------+ + | Reason | Onset | Comments | | | Date | | +---------+--------+ + | Results | 07/30/ | | | | 2019 | | +---------+--------+ + Encounter Details +--------+ + + + + | Date | Type | Department | Care Team | Description | +--------+ + + + + | 07/30/ | Telephone | [place] | Caty Schuster | Results | | 2018 | | [facility] | [address] | | | | | [address] | [address] | | | | | [address], | [facility], [place] | | | | | [place] [address] | [address] | | | | | [phone] | [phone] | | | | | | | [...] Telephone Encounter - Caitlin Santana LPN - 07/30/2018 2:32 PM PSTSee result note for d ocumentation. [facility]p [facility] Encounter - Zenia Espinoza - 07/30/2018 9:44 AM PSTThe patient received test resul ts and would like to speak with someone about them. Julsharlenete documented in this encounter Plan of Treatment Not on filedocumented as of this encounter Visit Diagnoses Not on filedocumented in this encounter"
--- OUTSIDE RECORDS SUMMARY | ~2020-03-22 | XMS | Encounter Summary ---
Demographics + + + | Address | [address] | | | [place] [address] | + + + | Home Phone | | + + + | Preferred Language | Unknown | + + + | Marital Status | Single | + + + | Yarsanism Affiliation | 1013 | + + + | Race | White | + + + | Ethnic Group | Not or | + + + Author + + + | Author | [facility] | | | and [place] | + + + | Organization | [facility] | | | and [place] | + + + | Address | Unknown | + + + | Phone | Unavailable | + + + Support + + + + + | Name | Relationship | Address | Phone | + + + + + | Mark Chatterjee | ECON | [place] [address] | | | | | Unknown | | + + + + + | Jean Claude Chatterjee | ECON | Unknown | | + + + + + Care Team Providers + +------+ + | Care Mold Changer Name | Role | Phone | + [...] [place] | Caty Schuster | GA: 30w | | 2019 | | [facility] | [address] | | | | | [address] | [address] | | | | | [address], | [place] | | | | | [place] [address] | [address] | | | | | [phone] | [phone] | | | | | | | [...] PM PSTCalled and talked with Kristyn and informed h er that she has chlamydia and needs to be treated actually with zithromax and sent that to [facility] in [place] and her boyfriend needs to be treated as well and can go to the [facility] er Dr. Schuster. hi taker, Caty Rivas DO - 06/25/2018 2:45 PM PSTTesting shows chlamydia. [...] s from here on out. A M PSTWhitakerCaty DO - 06/25/2018 2:45 PM PSTFormatting of this note might be d ifferent from the original. Patient Active Problem List Diagnosis Date Noted , unspecified gestational age 0801/27/2018 Overview Note: (last update: 06/26/2018) Patient transferred at 28 wks from [place]. Had positive chlamydia at 30 weeks as [...] partner treated. He can be tested at [facility]. They are not currently having intercourse. The [...] Ph.D., | | | | | | [address]ker | | | | | | [address] [facility] | | | | | | [place] [address] | | | | | | TYREE #[id number] | | | | + + + [...] + + + | REFERENCE LAB | [address] [facility] | [place], [place] | | | [facility] - | | [address] | | | FAVIO VALDEZ | | [...] | | Amplification Test | | - RIVERA | | | | (NAAT) resultshould be [...] | | | | | test use [address] (C. | | | | | | trachomatis) [place] [address] | | | | | | (N. [...] Diagnostics | | | | | | [facility] | | | | | | Aimee Gonzales M.D., | | | | | | Ph.D., Laboratory | | | | | | Director [address] | | | | | | [facility] | | | | | | [place] [address] | | | | | | TYREE #[id number] | | | | + + + [...] + + + | REFERENCE LAB | [address] [facility] | [place], [place] | | | [facility] - | | [address] | | | FAVIO VALDEZ | | [...]
--- OUTSIDE RECORDS SUMMARY | ~2020-03-22 | XMS | Encounter Summary ---
Demographics + + + | Address | [address] | | | [place] [address] | + + + | Home Phone | | + + + | Preferred Language | Unknown | + + + | Marital Status | Single | + + + | Zoroastrianism Affiliation | 1013 | + + + [...] Mark Chatterjee | ECON | [place] [address] | | | | | Unknown | | + + + + + | Jean Claude Chatterjee | ECON | Unknown | | + + + + + Care Team Providers + +------+ + | Care Journey Lineman Name | Role | Phone | + [...] | unspecified | | | | [place] [address] | [address] | depression type | | | | [phone] | [phone] | | | | | | | [...] this encounter Progress Notes Caty Schuster, - 09/24/2018 5:15 PM PDTFormatting of this note might be diffe rent from the original. Kristyn Longoria is a 18 y.o. here for a 6 wk visit. Patient is having issues with depression. No suicidal. She has been doing some hair changes and pierc ing. She is mostly worried about the anxiety. Her partner is threatening to have her go to [facility] but she will not do it. [...] -Urinary: negative Feels weird. Not really painful. -Pet Care Associate: no - bleeding: none now Neurologic: negative [...]
--- OUTSIDE RECORDS SUMMARY | ~2020-03-22 | XMS | Encounter Summary ---
Demographics + + + | Address | [address] | | | [place] [address] | + + + | Home Phone | | + + + | Preferred Language | Unknown | + + + | Marital Status | Single | + + + | Yarsani Affiliation | 1013 | + + + [...] Mark Chatterjee | ECON | [place] [address] | | | | | Unknown | | + + + + + | Jean Claude Chatterjee | ECON | Unknown | | + + + + + Care Team Providers + +------+ + | Care Helper Maintenance Cleaning Name | Role | Phone | + [...] | [place], [place] | [place], [place] | | | 2019 | | [address] | [address] | | | | | [phone] | [phone] | | | | | | | [...] 08/10/2018 9:34 AM PST Discharge Summary Kristyn Kate Von : 2000 Admission Date and Time: 08/07/2018 15:39 Discharge Date: 08/10/2018 Attending Clinician: Caty Schuster, * Primary Manager Advertising: Leroy Dougherty NP Discharge Diagnoses: Principal Problem: [...] cannot be sent through Care Everywhere.Caring for Jose s, Herpes: (Hungarian)documented in this encounter Medications at Time of [...] 7:04 Result Value Ref Range Product Code R1549D48 UNIT # [id number] UNIT ABO O UNIT RH POS Unit Status Crossmatched Blood Product ABORh OPOS Blood Product Expiration Date and Time Product Blood Type Barcode 5100 Product Code K8018P72 UNIT # [id number] UNIT ABO O UNIT RH POS Unit Status Crossmatched Blood Product ABORh OPOS Blood Product Expiration Date and Time [id number] Product Blood Type Barcode 5100 Product Code O2492E40 UNIT # [id number] UNIT ABO O UNIT RH POS Unit [...] Electronically signed: Caty Schuster DO 08/09/2018 8:46 [email or web address] Caty Evelyn, DO - 08/08/2018 7:27 AM PST OBSTETRICAL [...] Electronically signed: Caty Schuster DO 08/08/2018 7:27 [email or web address] DO - 08/08/2018 4:33 AM PSTCalled to [...] to monitor closely. documented in this encounter H&P Notes Caty Schuster, - 08/07/2018 10:12 PM PSTFormatting of this note might be diffe rent from the original. History and Physical Kristyn Longoria : 2000 Admission Date and Time: 08/07/2018 15:39 Date of Service: 08/07/2018 CHIEF COMPLAINT: labor History OF present iLLNESS Kristyn Longoria is a 18 y.o. at 36w5d with Estimated Date of Delivery: 08/30. She presents with a chief complaint of worsening contractions. She was seen last night in [facility] due to contractions. At that time, she was 3 cm dilated. She had worsening con tractions through the night and got even worse this evening. She was 4 cm when she arrived a nd a couple hours later she was 5 cm and very uncomfortable. She was given an epidural and is comfortable with that. She states the baby has been active. She did have a herpes outbr eak earlier tin the . She tested positive for previous infection so this was not h er first infection although she does not remember previous infection. She felt like there w as a sore that she noted on Friday. She says it is less painful now. There was no ulcerat ion at that time on exam and no vesicle. She states that she has not been taking her acyclo vir really regularly. She was also found to have chlamydia at that time and was treated. H er partner was also treated. It has not been 12 weeks since her her treatment. NO symptoms . Laboratory Studies: Lab Results Component Value Date ABO O 08/07/2018 RH Positive 08/07/2018 ABSCR Negative 08/07/2018 CULTURE Culture in progress... 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 No pertinent past medical history. PAST OBSTETRICAL HISTORY OB History Para Term AB Living 2 0 1 0 SAB TAB Ectopic Molar Multiple Live Births 1 0 PAST SURGICAL HISTORY Past Surgical History: Procedure Laterality Date tailbone FAMILY HISTORY Family History Problem Relation Age of Onset Cancer Maternal Grandfather Stroke Paternal Grandmother SOCIAL HISTORY The patient reports that she quit smoking about 9 months ago. She smoked 0.10 packs per da y. She has never used smokeless tobacco. She reports that she does not drink alcohol or use drugs. MEDICATIONS Prescriptions Prior to Admission Medication Sig Dispense Refill acyclovir (ZOVIRAX) 400 MG tablet Take 1 tablet by mouth 2 times daily. 60 tablet 0 ALLERGIES No Known Allergies VITALS SIGNS Vitals Current Average / Min / Max Temp 36.5 C (97.7 F) Temp Min: 36.5 C (97.7 F) Max: 36.5 C (97.7 F) BP 130/66 BP Min: 130/66 Max: 130/66 HR 87 Pulse Av Min: 87 Max: 87 RR 18 Resp Av Min: 18 Max: 18 Sats 100 % SpO2 Min: 100 % Max: 100 % Weight 75.3 kg (166 lb) Admit: 75.3 kg (166 lb) BMI Body mass index is 27.19 kg/m. PHYSICAL EXAM General: alert, appears stated age and cooperative Lungs: clear to auscultation bilaterally, normal respirations Heart: regular rate and rhythm, S1, S2 normal, no murmur, click, rub or gallop Abdomen: gravid, soft, non-tender; bowel sounds normal; no masses, no hepatosplenomegaly Uterine Size: size equals dates Presentation: cephalic by vaginal exam Extremites: No evidence of DVT on physical exam. VAGINAL EXAM: /- AROM performed with clear fluid No sign of herpes outbreak. The area of the sore she was noticing looks like a healed ski n irritation. NO vesicle. NO ulcer. Does not appear to be an active herpetic lesion. May have been a healed area. ESTIMATED WEIGHT: <4000 g MONITORING Variability: Moderate Variability 6-25 bpm Baseline: normal Accelerations: present Decelerations: Absent Tocodynometer: ever 2-4 minutes Category: I IMPRESSION & PLAN: Impression: 18 y.o. 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 I do not see an active lesion at this time. She is currently on acyclovir although not taking really regularly. Will do a repeat GC/chalmydia. Had planned to do this week but she came in in labor. W ill make snuff grinder aware. Risks, alternatives and possible complications have been discussed in detail with the patie nt. Admission procedures and expectations were discussed in detail. All questions answered, all appropriate consents will be signed. I expect this patient will be hospitalized for les s than 4 nights and expect the post-hospital plan to be discharged to home. Patient class upon admission: inpatient Time spent on Admission and Coordination of hospital care was less than 30 minutes. Caty Schuster DO 08/07/2018 22:12 DATE OF SERVICE: 08/07/2018 documented in this encounter Miscellaneous Notes Plan of Brigida Jacob RN - 08/10/2018 12:40 PM PSTProblem: Patient Care Overvi ew (Adult) Goal: Care Team Goals & Evaluation PROBLEM-RELATED GOALS: STRATEGY TO ACHIEVE GOALS: RESTRAINT-RELATED GOALS: STRATEGIES TO ACHIEVE RESTRAINT GOALS: Goal Evaluation: Kristyn is being discharged. She has denied pain today, despite swollen labia/perineum. She has been encouraged to use tucks pads and ice for swelling. She states she prefers a regular ice pack to the OB ice pads, so she was given one. She received her flu shot and TDaP. Her vital signs have been stable, though Bps 130s-140s/80s-90s today. Dr. Brownlee was notified of BP this am. Kristyn is scheduled to follow up on 1 week at the [facility] for a BP check. Kristyn has had light vag flow bleeding today, and her fundus is firm without massage. She is up in her room ad kelly, and without c/o lightheadedness. She is steady up indep. She had a r epeat H&H done this am, which was increased from her previous/pre blood inf labs. Dr. Brownlee is aware of her H&H results this am. Kristyn has changed baby's diaper this afternoon, and had been holding, making eye contact, a nd baby. She did require some instruction this am on responding to feed ing cues even if it seems baby fed short time ago. She has nursed indep according to cues a couple of times since that time. She has been given the discharge instructions per book, an d denies questions. She has been given rx's for new meds prescribed. lan of Brigida Benites RN - 08/10/2018 10:23 AM PSTProblem: Patient Care Overview (Adult) Goal: Care Team Goals & Evaluation PROBLEM-RELATED GOALS: STRATEGY TO ACHIEVE GOALS: RESTRAINT-RELATED GOALS: STRATEGIES TO ACHIEVE RESTRAINT GOALS: Goal Evaluation: Baby rooting. Pt states "she just ate a little while ago" and "she does that all the time and then just gets on and goes to sleep". Encouraged and instructed on responding to infant hunger cues, cluster feeding, and stimulation methods to assist with feedings. Baby to estiven st now, with good latch and suck. lan [facility] santiago, Dot Hsu RN - 08/09/2018 7:52 AM PSTProblem: , Vaginal Delivery (Adult) Prevent and manage potential problems includin. pain2. infection3. hemorrhage4. situatio nal response5. urinary retention6. venous thromboembolism Goal: Signs and Symptoms of Listed Potential Problems Will be Absent or Manageable (Postpar nagi, Vaginal Delivery) 1. Kristyn will report acceptable pain level until discharge by 08/09/18 2.Kristyn will remain hemodynamically stable demonstrated by stable VS, pp bleeding wdl, FF, Labs wdl by 08/09/18 3. Kristyn will remain free s/s of infection by discharge and/or 08/09/18 STRATEGY TO ACHIEVE GOALS; Monitor VS prn/per policy, monitor I/O's. Assess for discomfort prn, provide medications or non-pharmacological interventions prn and reassess for effectiveness. Check labs in am.Enco urage early . Watch for changes in blood pressure, heart rate. Continue uterine fundal massage and monitor. If fundus remains boggy, Anticipate administration of uterotonic medications Accurately assess amount of blood loss (e.G., weigh perineal pads) Monitor/assess laceration/episiotomy site per policy or prn for foul smell, increase swelli ng,bruising, or hematomas. Kristyn's VS's remained stable throughout the night, she c/o dizziness whenever she was up. H er H&H this am was 5.[address] Schuster was notifed, and ordered to cross match 3 units of blood, and stated she would be in to talk to the pt and obtain consents for blood transf usion. Kristyn reports her pain has remained stable throughout the night. She is her well, and appears to be bonding well with . [facility] Carmel Meredith RN - 08/08/2018 3:03 AM PSTProblem: Labor (Cervical Ripen, Induct, Augment) (Mikey lt,Obstetrics,Pediatric) Prevent and manage potential problems includin. pain2. anaphylactoid syndrome of pregnan cy3. well-being change4. chorioamnionitis5. intrapartum bleeding/hemorrhage6. intraute rine (IUFD)7. labor dystocia8. malpresentation9. precipitous [id number]. shoulde r [id number]. umbilical cord [id number]. uterine tachysystole Goal: Signs and Symptoms of Listed Potential Problems Will be Absent or Manageable (Labor) PROBLEM-RELATED GOALS: 1.Kristyn will have of viable by 08/09/18 2. Kristyn will not demonstrate any s/s of infection as evidenced by maternal fever, t achycardia, foul smelling amniotic fluid by 08/09/18 3. Kristyn will demonstrate progression of labor as evidenced by cervical change every 4 kaity rs by 08/09/18 4.Kristyn will rate pain as tolerable or </= 3/10 by 08/09/18 STRATEGY TO ACHIEVE GOALS: 1.Adjust maternal position as indicated to relieve cord compression, promote comfort and fa cilitate the delivery process Correlate maternal clinical status to stage of labor, labor progress, uterine activity, fet al heart rate tracing, and position Perform vaginal exam(s) to assess descent Assist with positioning/pressure application/maneuvers to facilitate the birthing process Anticipate the need for emergent delivery if indicated 2. Verify Group B streptococcus status and presence of known infection(s) Promote perineal hygiene Limit vaginal exams during labor Assist with obtaining cultures, as indicated Provide fever/comfort measures 3. Assess uterine activity pattern Consider insertion of intrauterine pressure catheter, if not already in place Evaluate heart rate tracing/well-being; assess for variability and presence of accele rations Promote/facilitate voiding at least every two hours Adjust maternal position every 30 minutes PRN (e.g., lateral, upright, on knees, use of bir thing ball) Anticipate need for pharmacotherapy to facilitate the labor process 4. Use a consistent pain scale for regular/frequent assessment Mutually determine/review pain management plan regularly Consider the presence of pre-existing persistent pain Recognize need to maintain chronic regimen with additional dosing to manage acute pain Encourage/facilitate nonpharmacologic pain techniques (e.g., hydrotherapy, relaxation) Assist with positioning for comfort Respect wishes for alternative pain relief methods Outcome: Improving 2014- Epidural for pain management placed. FHT remain cat 1. Contraction pattern and palp ation adequate. 2041- Patient comfortable with epidural. 2314- FHT cat 1, good contraction pattern. Patient with c/o pain that is resolved with epi dural bolus. 29- Full dialation. 127 Delivery of viable female . &D Delivery Note - Caty Cabello, DO - 08/08/2018 2:38 AM PSTFormatting of this note might be differe nt from the original. Vaginal Delivery Note Kristyn Longoria : 2000 Date of Service: 08/08/2018 Brief History Kristyn Longoria is a 18 y.o.-year-old at 36w6d weeks that presented with co ntractions. She made cervical change and received an epidural. AROM was performed when she was 5 cm. She continued on to complete. She pushed appropriately and delivered via . The area of the skin irritation, although it did not appear to be an active herpetic lesion, was covered with tagaderm for added protection. Stage I: Labor Artificial rupture of membranes occurred at 2151 . Amniotic fluid: Bloody;Clear . She reached full dilation at . Analgesia for labor was Epidural Stage II: Delivery The second stage of labor lasted hours and minute(s). A Vaginal, Spontaneous Delivery occurred at 0128 on Presentation was Vertex orientation. Position:Left Occiput Anterior A female baby was born. Birthweight was 3.5 kg (7 lb 11.5 oz) scores were 7 at one minute and 8 at five minutes. Stage III: Placenta/Cord The third stage of labor lasted 28 minute(s). The placental delivery was Expressed and it appeared normal. Umbilical cord: # of vessels: 3 Vessels Cord gases sent: Yes Episiotomy/Laceration: 2nd degree vaginal/perineal laceration was repaired with 3-0 vicryl in the usual fashion Complications: none Blood Loss 400 mL Needle and sponge counts were correct. The vagina was inspected and no items were left in situ. Mother and stable to recovery. Caty Schuster DO DATE/TIME: 08/08/2018 2:38 DATE OF SERVICE: 08/08/2018 documented in this encounter Plan of Treatment [...] | + +--------+ + + + | ABORAdrianaCONFIRM | Routin | 08/07/2018 | | Results [...] + + | [facility] | [address] | [place] | [phone] | | [facility] | | [address] | | + + + + + PRODUCT: Plasma (08/09/2018 2:14 PM PST) + + + + + + | Component | Value | Ref Range | Performed | Pathologist | | | | | At | Signature | + + + + + + | Product | [id number] | | [facility] | | | Code | | | [facility] | | | | [facility] | | | | | | [facility]LOOD BANK | | + + + + + + | UNIT # | [id number] | | [facility] | | | | [...] + + + + | Blood | [id number] | | [facility] | | | Product [...] + + | [facility] | [address] | [place], [place] | [phone] | | HOSP[facility] | | [address] | | + + + + + Red Blood Cells (PRBC) - Crossmatch (08/09/2018 12:35 PM PST) + + + + + + | Component | Value | Ref Range | Performed | Pathologist | | | | | At | Signature | + + + + + + | Product | [id number] | | [facility] | | | Code | | | [facility] | | | | [facility] | | | | | | [facility]LOOD BANK | | + + + + + + | UNIT # | [id number] | | [facility] | | | | [...] + + + + | Blood | [id number] | | [facility] | | | Product [...] + + + + | Product | [id number] | | [facility] | | | Code | | | [facility] | | | | [facility] | | | | | | [facility]LOOD BANK | | + + + + + + | UNIT # | [id number] | | [facility] | | | | [...] + + + + | Blood | [id number] | | [facility] | | | Product [...] + + + + | Product | [id number] | | [facility] | | | Code | | | [facility] | | | | [facility] | | | | | | [facility]LOOD BANK | | + + + + + + | UNIT # | [id number] | | [facility] | | | | [...] + + + + | Blood | [id number] | | [facility] | | | Product [...] + + | [facility] | [address] | [place] | [phone] | | [facility] | | [address] | | + + + + + CBC with Differential (08/09/2018 6:25 AM PST) + + + + + + | Component | Value | Ref Range | Performed | Pathologist | | | | | At | Signature | + + + + + + | White Blood | 17.3 (H) | 4.3 - 10.4 K/uL | [facility] | | | Cells | | | [facility] | | | | [facility] | | | | | | LABORATORY | | + + + + + + | Red Blood | 2.13 (L) | 4.12 - 5.30 | [facility] | | | Cells | | M/uL | [facility] | | [...] + + | [facility] | [address] | [place] | [phone] | | [facility] | | [address] | | + + + + + [...] + + | [facility] | [address] | [place] | [phone] | | HOSPITAL [facility] | | [address] | | + + + + + CBC with Differential (08/08/2018 5:10 AM PST) + + + + + + | Component | Value | Ref Range | Performed | Pathologist | | | | | At | Signature | + + + + + + | White Blood | 19.8 (H) | 4.3 - 10.4 K/uL | [facility] | | | Cells | | | [facility] | | | | | [facility] | | | | | | LABORATORY | | + + + + + + | Red Blood | 3.26 (L) | 4.12 - 5.30 | [facility] | | | Cells | | M/uL | [facility] | | [...] + + | [facility] | [address] | [place], [place] | [phone] | | HOSPITAL LAB[facility]ORY | | [address] | | + + + + + Surgical Pathology Exam (08/08/2018 12:00 AM PST) + + | Specimen | + + | Tissue - Entire | | placenta (body | | structure) | + + + + + | Narrative | Performed At | + + + | SPECIMEN(S): A PLACENTA SPECIMEN SOURCE: A. PLACENTA | [facility] | | CLINICAL HISTORY: Female , 7/8. History of chlamydia at | INCYTE [...] trivascular architecture on cut surfaces, and a artist's representative section | | | of umbilical [...] | semitranslucent, with no lesions identified. A artist's representative | | | section of membrane [...] | masses or lesions are grossly identified. Senior Housekeeper | | | sections are submitted as follows: (A2) - placenta with area of | | | subchorionic hemorrhage near umbilical cord insertion site, (A3) | | | - artist's representative section of placenta near cord insertion site, (A4) - | | | random placental disk. NRT:cml PERFORMING LABORATORY: The | | | technical component was performed by [facility] | | | [place] [address] (Medical | | | Director: Mark Blunt MD; CLIA# [id number]). Professional | | | interpretation was performed by [facility] | | | [place] [address] (Medical | | | Director: Mark Blunt MD; CLIA# [id number]). | | | Diagnostician: Georgiana Santana MD [...] Diagnostics | | | | | | [facility] | | | | | | Aimee Gonzales M.D., | | | | | | Ph.D., Laboratory | | | | | | [facility] [address] | | | | | | [facility] | | | | | | [place] [address] | | | | | | TYREE #[id number] | | | | + + + [...] + + + | REFERENCE LAB | [address] [facility] | [place], [place] | | | [facility] - | | [address] | | | NICOLE [facility]DEZ | | [...] + + | [facility] | [address] | [place] | [phone] | | HOSPITAL BLOOD BANK | | [address] | | + + + + + [...] + + | [facility] | [address] | [place] | [phone] | | HOSPITAL BLOOD BANK | | [address] | | + + + + + CBC no Differential (08/07/2018 7:10 PM PST) + + + + + + | Component | Value | Ref Range | Performed | Pathologist | | | | | At | Signature | + + + + + + | White Blood | 12.6 (H) | 4.3 - 10.4 K/uL | [facility] | | | Cells | | | [facility] | | | | | [facility] | | | | | | LABORATORY | | + + + + + + | Red Blood | 3.93 (L) | 4.12 - 5.30 | [facility] | | | Cells | | M/uL | [facility] | | [...] + + | [facility] | [address] | [place], [place] | [phone] | | HOSPITAL LAB[facility] | | [address] | | + + + + + [...] + + | [facility] | [address] | [place] | [phone] | | HOSPITAL LAB[facility]ORY | | [address] | | + + + + + [...] | | | | | | information. [place] prior to use., | | | | [...] | | | | | | hydrocodone-acetaminophen ([place]) | | | | | | | [...] | | | | | Minutes, ONCE, 08/07/18 at | | | | | [...] | +---+---+ + +-------+ +---------+---+ + | sqjebqz-memjggplvo-edxswvesf | Given | 08/10/19 | 0.5 mLs [...]
--- OUTSIDE RECORDS SUMMARY | ~2020-03-22 | XMS | Clinical Summary ---
Demographics + + + | Address | [address] | | | [place] [address] | + + + | Home Phone | | + + + | Preferred Language | Unknown | + + + | Marital Status | Single | + + + | Buddhist Affiliation | 1013 | + + + [...] Mark Chatterjee | ECON | [place] [address] | | | | | Unknown | | + + + + + | Jean Claude Chatterjee | ECON | Unknown | | + + + + + Care Team Providers + +------+ + | Care Recreation Counselor Name | Role | Phone | + [...] transferred at 28 | | wks from [place].Had positive chlamydia at 30 weeks as well as | | HSV. See note. Treated. HSV -will need medciation at 36 | | weeksChlamydia -will repeat test around 39 weeks. | | RH Rh Positive 02/14/2018 | | | |Rhogam n/a | |LINDSEY/NIPT | |Flu | |Tdap declined | | | |Problems: | | | |Patient transferred at 28 wks from [place]. | |Had positive chlamydia at 30 weeks [...] Health Maintenance | Due Date | Last | Comments | | | | Done | | + + + + + | Hepatitis C | | | | | Screening | 9 | | | + + + + + | Well Child Check | | | | | | 2 | | | + + + + + | Vaccine: HPV (2 - | | 12/19/19 | | | 3-dose series) | 7 | 17 | | + + + + + | Cervical Cancer | | | | | Screening (Pap) | 0 | | | + + + + + | Primary Care | | 08/18/19 | | | Outreach (Moderate | 0 | 19, | | | Risk) | | 12/06/19 | | | | | 18 | | + + + + + | Vaccine: Influenza | | 08/10/19 | | | (#1) | 0 | 19 | | + + + + + | Vaccine: | | 08/10/19 | | | Dtap/Tdap/Td (8 - | 9 | 19, | | | Td) | | 08/08/19 | | | | | 10, | | | | | 07/27/19 | | | | | 04, | | | | | Addition | | | | | al | | | | | history | | | | | exists | | + + [...] | [employer] | [employer] | [id number] | 06/19/19 | [phone] | | [employer] | | MEDICAID HMO | HEALTH | | 19-Pre | 1 | | id | | | MDCD | | sent | | | | | | [place] | | | | | | + +--------+ +--------+ +---------+--------+ | [employer] | [employer] | [id number] | 07/20/19 | [phone] | | [employer] | | MEDICAID HMO [...] | | | 9 (Home) | [place] [address] | + +--------+ +--------+ + + | Kristyn Cai | Person | Self [birth year] | [address] | | Primitivo | al/Fam | | 2000 | [phone] | [address] [place], | | | sary | | | 9 (Home) | [place] [address] | + +--------+ +--------+ + + | Kristyn Cai | Third | Self | [birth year] | [address] | | Primitivo | Libertarian | | 2000 | [phone] | [address] [place], | | | Liabil | | | 9 (Home) | [place] [address] | | | ity | | | | | + +--------+ +--------+ + + Advance Directives + + + + + | Type | Date Recorded | Patient | Explanation | | | | Security Intern | | + + + + + | Power of | | | | | Dispersion Mixer | | | | + + + [...]
--- OUTSIDE RECORDS SUMMARY | ~2020-03-22 | XMS | Encounter Summary ---
Demographics + + + | Address | [address] | | | [place] [address] | + + + | Home Phone | | + + + | Preferred Language | Unknown | + + + | Marital Status | Single | + + + | Roman Catholic Affiliation | 1013 | + + [...] Mark Chatterjee | ECON | [place] [address] | | | | | Unknown | | + + + + + | Jean Claude Chatterjee | ECON | Unknown | | + + + + + Care Team Providers + +------+ + | Care Strip Cleaner Name | Role | Phone | + +------+ + | Leroy Dougherty NP | PCP | | + +------+ + Encounter Details +--------+ + + + + | Date | Type | Department | Care Team | Description | +--------+ + + + + | 07/01/ | Abstract | [place] | Caitlin Santana, | | | 2018 | | [facility] | UTILITY [facility] | | | | | CLINIC [address] | | | | | | DR [address]NA [place]ARCIA, | | | | | | [place] [address] | | | | | | [phone] | | | +--------+ + + + [...]
--- OUTSIDE RECORDS SUMMARY | ~2020-03-22 | XMS | Encounter Summary ---
Demographics + + + | Address | [address] | | | [place] [address] | + + + | Home Phone | | + + + | Preferred Language | Unknown | + + + | Marital Status | Single | + + + | Mormonism Affiliation | 1013 | + + + [...] Mark Chatterjee | ECON | [place] [address] | | | | | Unknown | | + + + + + | Jean Claude Chatterjee | ECON | Unknown | | + + + + + Care Team Providers + +------+ + | Care Aircraft Loadmaster Superintendent Name | Role | Phone | + +------+ + | Leroy Dougherty NP | PCP | | + +------+ + Reason for Visit + +--------+ + | Reason | Onset | Comments | | | Date | | + +--------+ + | Appointment Question | 05/27/ | | | | 2017 | | + +--------+ + Encounter Details +--------+ + + + + | Date | Type | Department | Care Team | Description | +--------+ + + + + | 05/27/ | Telephone | [place] [facility] | Caty Schuster | Appointment Question | | 2017 | | [facility] | DO [address] | | | | | CLIN[address] | [address] | | | | | DR T[address]NA GARCIA, | [place] | | | | | [place] [address] | [address] | | | | | [phone] | [phone] | | | | | | | [...] this encounter Miscellaneous Notes Telephone Encounter - Orin Landry - 05/27/2018 3:00 PM PST05/27/18 Pt, Kristyn, was seen here on 01/27/18 for her IOB appt. Kristyn lives in [place] and has been seeing a Dr there for her LEANDRA appts. Kristyn phoned today and said she is ready to transfer care back to Dr. Schuster and we set up an LEANDRA appt on 06/12/18. I let Kristyn know that we needed the LEANDRA re cords from [place] and she said that she would have them faxed here. I am wondering if a 15 minute LEANDRA appt is enough, or should I schedule more time. ThanksElectronically rina d by Orin Landry at 05/27/2018 3:48 PM PSTdocumented in this encounter Plan of Treatment Not on filedocumented as of this encounter Visit Diagnoses Not on filedocumented in this encounter"
--- OUTSIDE RECORDS SUMMARY | ~2020-03-22 | XMS | Encounter Summary ---
Demographics + + + | Address | [address] | | | [place] [address] | + + + | Home Phone [...] Mark Chatterjee | ECON | [place] [address] | | | | | Unknown | | + + + + + | Jean Claude Chatterjee | ECON | Unknown | | + + + + + Care Team Providers + +------+ + | Care Superintendent Overhead Distribution Name | Role | Phone | + [...] | | | DR [place] | [place] | | | | | [address] | [address] | | | | | [phone] | [phone] | | | | | | | [...] encounter Miscellaneous Notes OB Triage Notes - Cheryl Valenzuela RN - 08/04/2018 3:43 PM PSTGestation for the 08/04 visit was 36 2/7 B Triage Notes - Tana Marsh RN - 08/04/2018 3:42 PM PSTP[facility]. She was observed in [facility] Friday night, discharge Friday. Was give n "A shot to stop contractions in [place]". Unsure of medication. Contractions have cont inued to get worse since her discharge. Denies VB or LOF. States +FM. Monitors placed. H as constant L sided upper back pain rates a 4. Describes UC's as L sided and less pain than back. documented in this encounter Plan of Treatment [...] + + + + + + | Clarity, | Clear | Clear | [place] | | | Urine | [...] - 1.030 | [place] | | | [place], | | | [place] | | | [...] + + | [facility] | [address] | [place] | [phone] | | HOSPITAL [facility] | | [address] | | + + + + + [...] + + + + + + | Clarity, | Cloudy (A) | Clear | [facility] | | | Urine | [...] - 1.030 | [place] | | | [place], | | | [place] | | | [...] + + | [facility] | [address] | [place] | [phone] | | HOSPITAL LAB[facility] | | [address] | | + + + + + documented in this encounter Visit Diagnoses Not on filedocumented in this encounter
--- OUTSIDE RECORDS SUMMARY | ~2020-03-22 | XMS | Encounter Summary ---
Demographics + + + | Address | [address] | | | [place] [address] | + + + | Home Phone [...] Author + + + | Author | [facility] | | | and [place] | + + + | Organization | [facility] | | | and [place] | + + + | Address | Unknown | + + + | Phone | Unavailable | + + + Support + + + + + | Name | Relationship | Address | Phone | + + + + + | Mark Chatterjee | ECON | [place] [address] | | | | | Unknown | | + + + + + | Jean Claude Chatterjee | ECON | Unknown | | + + + + + Care Team Providers + +------+ + | Care Property Management Bookkeeper Name | Role | Phone | + [...] check | | 2019 | Support | [facility] | DO [address] | (Primary Dx) | | | | CLINIC [address] | [address] | | | | | DR T[address]NA GARCIA, | [place], [place] | | | | | [place] [address] | [address] | | | | | [phone] | [phone] | | | | | | | | | | | | Jenna Brownlee MD | | | | | | [address] | | | | | | [place], [place] | | | | | | [address] | | | | | | | [...] documented in this encounter Progress Notes Josie Tuttle, BEVERLY - 08/11/2018 4:30 PM PSTPt presented to [...]
--- OUTSIDE RECORDS SUMMARY | ~2020-03-22 | XMS | Encounter Summary ---
Demographics + + + | Address | [address] | | | [place] [address] | + + + | Home Phone [...] Author + + + | Author | [facility] | | | and [place] | + + + | Organization | [facility] | | | and [place] | + + + | Address | Unknown | + + + | Phone | Unavailable | + + + Support + + + + + | Name | Relationship | Address | Phone | + + + + + | Mark Chatterjee | ECON | [place] [address] | | | | | Unknown | | + + + + + | Jean Claude Chatterjee | ECON | Unknown | | + + + + + Care Team Providers + +------+ + | Care Wet Press Tender Name | Role | Phone | + +------+ + | Leroy Dougherty NP | PCP | | + +------+ + Reason for Visit + +--------+ + | Reason | Onset | Comments | | | Date | | + +--------+ + | Advice Only | 12/10/ | | | | 2018 | | + +--------+ + Encounter Details +--------+ + + + + | Date | Type | Department | Care Team | Description | +--------+ + + + + | 12/10/ | Telephone | [facility] [facility] | Howard Lewis | Advice Only | | 2018 | | [facility] | MD [address] | | | | | CLIN[address] | [address] | | | | | DR T[address]NA GARCIA, | [place] | | | | | [place] [address] | [address] | | | | | [phone] | [phone] | | | | | | | [...] this encounter Miscellaneous Notes Telephone Encounter - Radha Soto - 01/29/2019 7:42 AM PDTERROR documented in this encounter Plan of Treatment Not on filedocumented as of this encounter Visit Diagnoses Not on filedocumented in this encounter"
--- OUTSIDE RECORDS SUMMARY | ~2020-03-22 | XMS | Encounter Summary ---
Demographics + + + | Address | [address] | | | [place] [address] | + + + | Home Phone [...] + + + | Author | [facility] | | | and [place] | + + + | Organization | [facility] | | | and [place] | + + + | Address | Unknown | + + + | Phone | Unavailable | + + + Support + + + + + | Name | Relationship | Address | Phone | + + + + + | Mark Chatterjee | ECON | [place] [address] | | | | | Unknown | | + + + + + | Jean Claude Chatterjee | ECON | Unknown | | + + + + + Care Team Providers + +------+ + | Care Infant Nanny Name | Role | Phone | + [...] | 2019 | | [facility] | THERMAL CUTTER HAND | of | | | | CLINIC [address] | | (Primary Dx) | | | | DR [place]ARCIA, | | | | | | [place] [address] | | | | | | [phone] | | | +--------+ + + + [...] the | | | | | | [facility] | | | | | | [...] Testing Performed at: [facility] CLIA: [id number] - 6028 | REFERENCE LAB | | [place] [address] | [facility] | + + + + + + + + | Performing | Address | City/State/Zipcode | Phone Number | | Organization | | | | + + + + + | REFERENCE LAB | [address] | [place] | [phone] | | [facility] | | [address] | | + + + + + | REFERENCE LAB | [address] [facility] | [place] | [phone] | | [facility] | | [address] | | + + + + + [...] + + + | Red Blood | 3.88 | 3.8 - 5.1 | REFERENCE | | | Cells | | | LAB | | | [...] Testing Performed at: [facility] CLIA: [id number] - [address] | REFERENCE LAB | | [place] [address] | [facility] | + + + + + + + + | Performing | Address | City/State/Zipcode | Phone Number | | Organization | | | | + + + + + | REFERENCE LAB | [address] | [place] | [phone] | | [facility] | | [address] | | + + + + + | [facility] | [address] [facility] | [place] | [phone] | | [facility] | | [address] | | + + + + + documented in this encounter Visit Diagnoses + + | Diagnosis | + + | 28 weeks gestation of - Primary state, incidental | + + documented in this encounter"
--- OUTSIDE RECORDS SUMMARY | ~2020-03-22 | XMS | Encounter Summary ---
Demographics + + + | Address | [address] | | | [place] [address] | + + + | Home Phone | | + + + | Preferred Language | Unknown | + + + | Marital Status | Single | + + + | Anabaptism Affiliation | 1013 | + + + | Race | White | + + + | Ethnic Group | Not or | + + + Author + + + | Author | [facility] | | | and [place] | + + + | Organization | [facility] | | | and [place] | + + + | Address | Unknown | + + + | Phone | Unavailable | + + + Support + + + + + | Name | Relationship | Address | Phone | + + + + + | Mark Chatterjee | ECON | [place] [address] | | | | | Unknown | | + + + + + | Jean Claude Chatterjee | ECON | Unknown | | + + + + + Care Team Providers + +------+ + | Care Membership Manager Name | Role | Phone | [...] GA: [id number] | | 2018 | | [facility] | DO [address] | | | | | CLIN[address] | [address] | | | | | DR TIANNA GARCIA, | [place] | | | | | [place] [address] | [address] | | | | | [phone] | [phone] | | | | | | | [...] water with a slice of lemon or lone pine. (These can also help ease an upset [...] salmon, pollock, and catfish Date Last Reviewed: 01/29/201519994047-1076 Tomo Clases. [address] [place] [address], [place] [address]. All righ ts reserved. This information is [...] to increase its absorption. Date Last Reviewed: 01/22/201519997343-0352 [employer]. [address] [place] [address], [place] [address]. All righ ts reserved. This information is not intended as a substitute for professional medical care. Always follow your healthcare professional's instructions. documented in this encounter Progress Notes Caty Schuster, - 01/27/2018 2:00 PM PDTFormatting of this note might be diffe bent from the original. Subjective: Kristyn Lon[place] is being seen today for her first obstetrical visit. This is a plann ed . FOB is involved. She has actually had an IOB with a provider in [place]. 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 She has family here that she could stay with. I am ok with seeing her occasionally during the , but we do need to make sure that she does not have duplicate care such as labs. S he states she had some labs done already in [place] and so we will get those results. [...] Anes PTL Lv 2 Current 1 SAB Hr Associate history: Menstrual history: Patient's last menstrual period [...] negative Breast: negative Gastrointestinal: negative -Urinary: negative -Hr Associate: none. Endocrinology: negative Neurologic: negative Musculoskeletal: negative [...] with positive cardiac activity at 180 bpm. [place]-rump length of 2.57 cm was consistent w [...] age She has been seeing provider in [place] and not sure where she will deliver. I am ok wit h seeing her occasionally, but will need to make sure that information is passed between the two clinics because we do not want to duplicate orders. 2. Normal in multigravida in first trimester 3. 12 weeks gestation of Plan: labs apparently had done in [place]. Will have her sign a ROR for those results . Patient is taking vitamins. Problem list reviewed and updated. Discussed options for genetic testing. Patient was undecided Discussed using Vit B6 25 mg or more four times a day with or without 1/2 a unisom tablet. Follow up in 3 weeks. States she has a follow up in [place] in 2 weeks. If she does, she [...]
--- OUTSIDE RECORDS SUMMARY | ~2020-03-22 | XMS | Encounter Summary ---
Demographics + + + | Address | [address] | | | [place] [address] | + + + | Home Phone [...] Mark Chatterjee | ECON | [place] [address] | | | | | Unknown | | + + + + + | Jean Claude Chatterjee | ECON | Unknown | | + + + + + Care Team Providers + +------+ + | Care Vtc Technician Name | Role | Phone | [...] [facility] | Caty Schuster | GA: 285d | | 2017 | | [facility] | [address] | | | | | CLIN[address] | [address] | | | | | DR T[address]NA GARCIA, | [place] | | | | | [place] [address] | [address] | | | | | [phone] | [phone] | | | | | | | [...] PM PSTPatient transferred care from [facility]. The FOB will be leaving for [...] CBC. She would like those done in [place]. documented in this encounter Plan of Treatment [...]
--- OUTSIDE RECORDS SUMMARY | 2020-03-22 17:32 | XMS ---
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 Care History Medical/Surgical 03/11/2018 [facility] - CHW SPOKE WITH PATIENT ABOUT ED UTILIZATION. - CHW DISCUSSED THE IMPORTANCE OF FOLLOW UP CARE WITH OBGYN DR ROCHA. - CHW DISCUSSED [facility] WHICH HELPS WITH FIRST TIME MOMS/. PATIENT DECLINED THE REFERRAL. - PATIENT STATED SHE WILL FOLLOW UP WITH HER OBGYN AND WILL SEEK NON EMERGENT MEDICAL CONCERNS THROUGH THE WALK IN CLINIC. 12/29/2017 [facility] - Patient is currently established with [facility]. If patient is seen in the ED during business hours. Please contact CHWs at [facility] at [phone] [phone]. Care Recommendation: This patient has had 5 or more Emergency Department visits in the last 12 months.\T\nbsp; Patient requires education on the scope and purpose of the ED as an acute care provider not a Primary Care Provider and should not be utilized for chronic conditions.\T\nbsp; If patient returns to ED please contact [facility] Corinna Armendariz at [phone]. These are guidelines and the provider should exercise clinical judgment when providing care. 12/08/2017 [facility] Care Recommendation: \T\nbsp;Please refer patient to [facility] for non emergent visits and follow care. Patient is established with [facility]. This patient has had 5 or more Emergency Department visits in the last 12 months.\T\nbsp; Patient requires education on the scope and purpose of the ED as an acute care provider not a Primary Care Provider and should not be utilized for chronic conditions.\T\nbsp; If patient returns to ED please contact [facility] Corinna Armendariz at [phone]. These are guidelines and the provider should exercise clinical judgment when providing care. E.D. VISIT COUNT (12 MO.) 1 [facility] [facility] 3 [facility] TOTAL 6 NOTE: Visits indicate total known visits. ED/UCC VISIT TRACKING (12 MO.) 03/22/2020 17:30 [place] TYPE: Emergency COMPLAINT: - RIGHT ARM PAIN NON INJURY 11/19/2019 23:07 [place] [place] TYPE: Emergency COMPLAINT: - VAGINAL BLEEDING DIAGNOSES: - Spotting complicating , first trimester - Personal history of nicotine dependence - Major depressive disorder, single episode, unspecified - Other mental disorders complicating , first trimeste - 10 weeks gestation of - Hemorrhage in early , unspecified - Anxiety disorder, unspecified 08/23/2019 16:34 [facility] [place] TYPE: Emergency DIAGNOSES: - FEVER, COUGH - Fever, unspecified - Hematuria, unspecified - Urinary tract infection, site not specified 08/05/2019 16:38 [facility] [facility] [place] TYPE: Emergency DIAGNOSES: - Abnormal uterine [...] visits to display in this time frame [email or web address]
== END 2020-03-22 20:19 | disposition home or self-care (01) ==
LOC: ED 17:29
DX: M79.601 Pain in right arm (principal); F41.9 Anxiety disorder, unspecified; F43.10 Post-traumatic stress disorder, unspecified; F32.9 Major depressive disorder, single episode, unspecified; Z87.891 Personal history of nicotine dependence
CPT/HCPCS: 93971; 99283-25

== ENCOUNTER 2020-06-13 19:37 | Emergency (ER) | payer MEDICAID ==
[~2020-06-13] VITALS: Ht 165.1 cm; Wt 66.7 kg
--- OUTSIDE RECORDS SUMMARY | 2020-06-13 19:40 | XMS ---
PreManage Notification: BRIGITTE IVY Security Bevel Operator Events No recent Security Events currently on file CRITERIA MET - [facility] [place] CARE PROVIDERS RAYMOND RASHEED Nurse Practitioner: Family 12/29/2017-Current PHONE: [phone] IDA [facility] Current PHONE: Unknown P[place] 03/11/2018-Current PHONE: [phone] [facility] Date: 04/12/2019 Care Coordination: Receives mental health services with [facility].\T\nbsp; Please contact [facility] for any mental health concerns.\T\nbsp; [place]: [phone]\ T\nbsp; [place]: [phone]. Care History Medical/Surgical 03/11/2018 [facility] - CHW SPOKE WITH PATIENT ABOUT ED UTILIZATION. - CHW DISCUSSED THE IMPORTANCE OF FOLLOW UP CARE WITH OBGYN DR ROCHA. - CHW DISCUSSED REFERRAL FOR [facility] WHICH HELPS WITH FIRST TIME MOMS/. PATIENT DECLINED THE REFERRAL. - PATIENT STATED SHE WILL FOLLOW UP WITH HER OBGYN AND WILL SEEK NON EMERGENT MEDICAL CONCERNS THROUGH THE WALK IN CLINIC. 12/29/2017 [facility] - Patient is currently established with [facility]. If patient is seen in the ED during business hours. Please contact CHWs at [facility] at [phone]. Care Recommendation: This patient has had 5 or more Emergency Department visits in the last 12 months.\T\nbsp; Patient requires education on the scope and purpose of the ED as an acute care provider not a Primary Care Provider and should not be utilized for chronic conditions.\T\nbsp; If patient returns to ED please contact [facility] Corinna Armendariz at [phone]. These are guidelines and the provider should exercise clinical judgment when providing care. 12/08/2017 [facility] Care Recommendation: \T\nbsp;Please refer patient to [facility] for non emergent visits and follow care. Patient is established with [facility]. This patient has had 5 or more Emergency Department visits in the last 12 months.\T\nbsp; Patient requires education on the scope and purpose of the ED as an acute care provider not a Primary Care Provider and should not be utilized for chronic conditions.\T\nbsp; If patient returns to ED please contact [facility] Corinna Armendariz at [phone]. These are guidelines and the provider should exercise clinical judgment when providing care. E.D. VISIT COUNT (12 MO.) 1 [facility] TOTAL 5 NOTE: Visits indicate total known visits. ED/UCC VISIT TRACKING (12 MO.) 06/13/2020 19:37 [place] TYPE: Emergency COMPLAINT: - ABD PAIN 03/22/2020 17:30 [place] TYPE: Emergency COMPLAINT: - RIGHT ARM PAIN NON INJURY DIAGNOSES: - Personal history of nicotine dependence - Pain in right arm - Anxiety disorder, unspecified - Post-traumatic stress disorder, unspecified - Major depressive disorder, single episode, unspecified 11/19/2019 23:07 [place] TYPE: Emergency COMPLAINT: - VAGINAL BLEEDING DIAGNOSES: - Spotting complicating , first trimester - Personal history of nicotine dependence - Major depressive disorder, single episode, unspecified - Other mental disorders complicating , first trimester - 10 weeks gestation of - Hemorrhage in early , unspecified - Anxiety disorder, unspecified 08/23/2019 16:34 Sonido [place] TYPE: Emergency DIAGNOSES: - FEVER, COUGH - Fever, unspecified - Hematuria, unspecified - Urinary tract infection, site not specified 08/05/2019 16:38 Kassie Rauschland [place] TYPE: Emergency DIAGNOSES: - Abnormal uterine and vaginal bleeding, unspecified - Vaginal Bleeding INPATIENT VISIT TRACKING (12 MO.) [facility]2020 [facility] DIAGNOSES: - Encounter for full-term uncomplicated delivery - Rupture of Membranes [email or web address]
== END 2020-06-13 23:11 | disposition left against medical advice (07) ==
LOC: ED 19:37
DX: Z53.21 Procedure and treatment not carried out due to patient leaving prior to being seen by health care provider (principal)
CPT/HCPCS: 80053; 81001; 83690; 85025

== ENCOUNTER 2020-06-15 18:21 | Emergency (ER) | payer MEDICAID ==
[~2020-06-15] VITALS: Ht 165.1 cm; Wt 64.0 kg
--- OUTSIDE RECORDS SUMMARY | 2020-06-15 18:24 | XMS ---
PreManage Notification: BRIGITTE IVY Security Medical Physiologist Events 1 event(s) in the past 18 months Most recent security events: Elopement at [facility] 06/13/2020 19:37 - Other Details: PATIENT LWBS. CRITERIA MET - [facility] - Has Care Guidelines - [facility] - 2 Visits in 30 Days CARE PROVIDERS RAYMOND RASHEED Nurse Practitioner: 12/29/2017-Current PHONE: [phone] IDA [facility] Current PHONE: Unknown PENNY [place] 03/11/2018-Current PHONE: [phone] Guidelines Source: [facility] Guidelines Date: 04/12/2019 Care Coordination: Receives mental health services with [facility].\T\nbsp; Please contact [facility] for any mental health concerns.\T\nbsp; [place]: [phone]\ T\nbsp; [place]: [phone]. Care History Medical/Surgical 03/11/2018 [facility] - CHW SPOKE WITH PATIENT ABOUT ED UTILIZATION. - CHW DISCUSSED THE IMPORTANCE OF FOLLOW UP CARE WITH OBGYN DR ROCHA. - CHW DISCUSSED REFERRAL FOR [facility] PROGRAM WHICH HELPS WITH FIRST TIME MOMS/. PATIENT DECLINED THE REFERRAL. - PATIENT STATED SHE WILL FOLLOW UP WITH HER OBGYN AND WILL SEEK NON EMERGENT MEDICAL CONCERNS THROUGH THE WALK IN CLINIC. 12/29/2017 [facility] - Patient is currently established with [facility]. If patient is seen in the ED during business hours. Please contact CHWs at [facility] at [phone]. Care Recommendation: This patient has had 5 or more Emergency Department visits in the last 12 months.\T\nbsp; Patient requires education on the scope and purpose of the ED as an acute care provider not a Primary Care Provider and should not be utilized for chronic conditions.\T\nbsp; If patient returns to ED please contact [facility] Corinna Armendariz at [phone]. These are guidelines and the provider should exercise clinical judgment when providing care. 12/08/2017 [facility] Care Recommendation: \T\nbsp;Please refer patient to [facility] for non emergent visits and follow care. Patient is established with [facility]. This patient has had 5 or more Emergency Department visits in the last 12 months.\T\nbsp; Patient requires education on the scope and purpose of the ED as an acute care provider not a Primary Care Provider and should not be utilized for chronic conditions.\T\nbsp; If patient returns to ED please contact [facility] Corinna Armendariz at [phone]. These are guidelines and the provider should exercise clinical judgment when providing care. E.D. VISIT COUNT (12 MO.) 1 Sonido Jamila Santos [address] [place], [place] [address]ChloeChloe 4 LINDSEY Ta TOTAL 6 NOTE: Visits indicate total known visits. ED/UCC VISIT TRACKING (12 MO.) 06/15/2020 18:22 [place] TYPE: Emergency COMPLAINT: - ABD PAIN/ 06/13/2020 19:37 [place] TYPE: Emergency [...] unspecified - Anxiety disorder, unspecified 08/23/2019 16:[facility] [place] TYPE: Emergency DIAGNOSES: - FEVER, COUGH - Fever, unspecified - Hematuria, unspecified - Urinary tract infection, site not specified 08/05/2019 16:38 Kassie [place] TYPE: Emergency DIAGNOSES: - Abnormal uterine and vaginal bleeding, unspecified - Vaginal Bleeding INPATIENT VISIT TRACKING (12 MO.) 06/06/2020 21:46 [facility] [place] TYPE: Mother Baby Unit DIAGNOSES: - Encounter for full-term uncomplicated delivery - Rupture of Membranes [email or web address]
== END 2020-06-15 19:30 | disposition left against medical advice (07) ==
LOC: ED 18:21
DX: Z53.21 Procedure and treatment not carried out due to patient leaving prior to being seen by health care provider (principal)